=== PATIENT | female | born 1980 | race Caucasian/White ===

== ENCOUNTER 2021-01-22 01:14 | Emergency (ER) | payer BC, SELFPAY ==
--- NOTE | ~2021-01-22 | CT_ITS ---
EXAMINATION: CT abdomen pelvis w con DATE: 01/22/2021 03:39 INDICATION: Generalized abdominal pain. TECHNIQUE: Computed tomography (CT) of the abdomen and pelvis was performed with 100 mL Omnipaque 350 intravenous contrast. Automated exposure control and iterative reconstruction technique were employe d. The dose-length product was 395.67 mGy-cm. COMPARISON: CT abdomen and pelvis 06/17/2013 FINDINGS: The visualized portions of the lung bases demonstrate minimal atelectasis. No pleural effus ion. The heart size is normal. No pericardial effusion. The liver, gallbladder, spleen, pancreas, adr enal glands, and kidneys are normal. There are no dilated loops of bowel. The appendix is normal. The re is bilateral hydrosalpinx. There are no pathologically enlarged lymph nodes. There is physiologic fluid in the pelvis. There is mild thoracolumbar spondylosis. IMPRESSION: 1. Bilateral hydrosalpinx. Reviewed, dictated and finalized at location A. CARE ASSISTANT IMPRESSION: 1. Bilateral hydrosalpinx.
[2021-01-22 01:16] VITALS: BP 166/93; PULSE 98; RESP 18; TEMP 36.8; O2SAT 100
[2021-01-22 01:58] VITALS: BP 152/99; PULSE 85; RESP 16; O2SAT 99
[2021-01-22 02:51] VITALS: BP 132/71; PULSE 98; RESP 16; O2SAT 100
[2021-01-22 03:02] LABS: Basophils Percent Auto 0.4 % (0.2-1.2); Eosinophils Absolute Auto 0.1 K/mm3 (0-0.3); Eosinophils Percent Auto 1.6 % (0-4.4); Hematocrit 39.1 % (37.0-47.0); Immature Granulocyte Absolute 0.01 K/mm3 (0.00-0.031); Immature Granulocyte Percent A 0.2 % (0-0.5); Lymphocytes Absolute Auto 1.61 K/mm3 (0.9-3.2); Lymphocytes Percent Auto 31.6 % (18.3-44.2); Mean Corpuscular HGB Conc 35.8 g/dl (32-36); Mean Corpuscular Volume 86.5 fl (80-100); Mean Platelet Volume 10.7 fl (7.4-10.4); Monocytes Absolute Auto 0.4 K/mm3 (0.1-0.6); Monocytes Percent Auto 7.7 % (2.6-8.5); Neutrophils Percent Auto 58.5 % (45.5-73.1); Platelet Count Result 185 k/mm3 (150-375); Red Blood Count 4.52 M/mm3 (4.2-5.4); Red Cell Distribution Width 12.1 % (11.5-14.5); White Blood Count 5.1 K/mm3 (4.5-10.0)
[2021-01-22 03:05] LABS: Lactic Acid Reflex 0.8 mmol/L (0.7-2.1)
[2021-01-22 03:16] LABS: Alanine Aminotransferase 17 U/L (4-35); Albumin Level 4.5 g/dL (3.5-5.1); Alkaline Phosphatase 53 U/L (38-126); Anion Gap 6 mmol/L (8-16); Aspartate Amino Transferase 23 U/L (14-36); Bilirubin,Total 1.1 mg/dL (0.2-1.3); Blood Urea Nitrogen 17 mg/dL (7-17); Calcium 9.5 mg/dL (8.4-10.2); Carbon Dioxide 25 mmol/L (22-30); Chloride 106 mmol/L (98-107); Estimated CRCL calculation 64 ml/min; Estimated Glomerular Filt Rate > 60; Glucose 110 mg/dL (65-110); Lipase 76 U/L (23-300); Magnesium 2.1 mg/dL (1.6-2.3); Sodium 137 mmol/L (137-145)
[2021-01-22] MEDS: SODIUM CHLORIDE 0.9% IV 1,000 ML 999 ML IV CONT (03:21)
--- NOTE | 2021-01-22 03:36 | ED.GENADULT ---
HPI - General Adult General Chief complaint: Extremity Problem,Nontraumatic Stated complaint: left foot numbness/tingling, left thigh pain Time Seen by Provider: 01/22/21 02:21 History of Present Illness HPI narrative: Patient 40-year-old female presents the emergency department with chief complaint of left lower quadrant and left leg pain. The patient reports that last several days she said, cramping in her pelvis area reports that she started having pain shooting down the dorsum of her left leg. Patient denies focal neurological deficit reports that she also does have an underlying neurological disorder. Patient denies fever denies vomiting denies diarrhea. The patient states the pain is worse with movement reports the pain is more in the dorsum of the leg and worse with movement denies paresthesias denies pallor denies pulselessness. The patient also reports there is been no swelling of the leg and denies direct trauma Related Data Allergies Allergy/AdvReac Type Severity Reaction Status Date / Time Cephalosporins Allergy Mild Unverified 06/17/13 12:25 adhesive Allergy Unknown Unverified 06/17/13 12:25 cefixime Allergy Unknown Unverified 06/17/13 12:25 meperidine Allergy Unknown N/V Unverified 06/27/08 12:25 nitrofurantoin Allergy Unknown RASH Unverified 06/17/13 12:25 Review of Systems Review of Systems: A 10 system review of systems was completed on the patient and is negative except for what is stated in the HPI. Nursing and ancillary documentation was reviewed. Exam Narrative: GENERAL: Well-appearing, well-nourished, and in no acute distress. HEAD: Normocephalic, atraumatic. EYES: PERRLA and EOMI. ENT: Nares clear, no rhinorrhea or epistaxis. Mucous membranes moist. NECK: Supple. CHEST: Clear to auscultation. No respiratory distress. HEART: Regular rate and rhythm. No murmur heard. Normal peripheral pulses. ABDOMEN: Soft, tender to palpation in the left lower quadrant, nondistended, normal active bowel sounds. EXTREMITIES: Normal range of motion. No edema. SKIN: Warm, dry, no rash. NEURO: No focal deficits. Alert and oriented x3. PSYCH: Normal mood and affect. Course Vital Signs Vital signs: Vital Signs Temperature 36.8 C 01/22/21 01:16 Pulse Rate 98 01/22/21 01:16 Respiratory Rate 18 01/22/21 01:16 Blood Pressure 166/93 H 01/22/21 01:16 Pulse Oximetry 100 01/22/21 01:16 Temperature 36.8 C 01/22/21 01:16 Pulse Rate 72 01/22/21 05:44 Respiratory Rate 16 01/22/21 05:44 Blood Pressure 132/83 01/22/21 05:44 Pulse Oximetry 99 01/22/21 05:44 Medical Decision Making Vital Signs Vital Signs: Vital Signs Temperature 36.8 C 01/22/21 01:16 Pulse Rate 98 01/22/21 01:16 Respiratory Rate 18 01/22/21 01:16 Blood Pressure 166/93 H 01/22/21 01:16 Pulse Oximetry 100 01/22/21 01:16 Temperature 36.8 C 01/22/21 01:16 Pulse Rate 72 01/22/21 05:44 Respiratory Rate 16 01/22/21 05:44 Blood Pressure 132/83 01/22/21 05:44 Pulse Oximetry 99 01/22/21 05:44 Lab Data Result diagrams: 01/22/21 02:45 01/22/21 02:45 Labs: Lab Results 01/22/21 01/22/21 01/22/21 Range/Units 02:45 02:45 02:45 WBC 5.1 (4.5-10.0) K/mm3 RBC 4.52 (4.2-5.4) M/mm3 Hgb 14.0 (12.0-15.0) g/dL Hct 39.1 (37.0-47.0) % MCV 86.5 (80-100) fl MCH 31.0 (26-34) pg MCHC 35.8 (32-36) g/dl RDW 12.1 (11.5-14.5) % Plt Count 185 (150-375) k/mm3 MPV 10.7 H (7.4-10.4) fl Immature Gran % (Auto) 0.2 (0-0.5) % Neut % (Auto) 58.5 (45.5-73.1) % Lymph % (Auto) 31.6 (18.3-44.2) % Glascock % (Auto) 7.7 (2.6-8.5) % Eos % (Auto) 1.6 (0-4.4) % Baso % (Auto) 0.4 (0.2-1.2) % Lymph # (Auto) 1.61 (0.9-3.2) K/mm3 Glascock # (Auto) 0.4 (0.1-0.6) K/mm3 Eos # (Auto) 0.1 (0-0.3) K/mm3 Baso # (Auto) 0.0 (0.0-0.1) K/mm3 Abs Immat Gran (auto) 0.01 (0.00-0.031) K/mm3 Absolute Neuts (au
[2021-01-22 03:37] LABS: Add Urine Microscopic? YES; Appearance Urine Clear (Clear); Bacteria Urine Trace /hpf; Bilirubin Urine Negative (Negative); Blood Urine 1+ (Negative); Color Urine Straw (Yellow); Glucose Urine UA Negative (Negative); Ketones Urine Negative (Negative); Leukocyte Esterase Ur Negative LEU/UL (Negative); Nitrate Urine Negative (Negative); Protein Urine Negative (Negative); RBC Urine 0-2 /hpf (0-2); Specific Grav Ur 1.006 (1.001-1.035); Squamous Epithelial Cell Urine Moderate /hpf (Few); Urobilinogen Urine Negative mg/dL (<2.0); WBC Urine 0-3 /hpf
[2021-01-22 05:44] VITALS: BP 132/83; PULSE 72; RESP 16; O2SAT 99
[2021-01-22 07:07] VITALS: BP 105/65; PULSE 75; RESP 16; O2SAT 98
== END 2021-01-22 07:08 | disposition home or self-care (01) ==
PROVIDERS: Emergency Provider Emergency Medicine; PCP Internal Medicine
DX: R10.2 Pelvic and perineal pain (principal); M79.605 Pain in left leg
CPT/HCPCS: 36415; 74177; 80053; 81001; 81025; 83605; 83690; 83735; 85025; 96360; 99284; J7030; Q9967

== ENCOUNTER 2021-01-23 14:53 | Outpatient (CLI) | payer BC, SELFPAY | END 2021-01-23 14:54 | disposition home or self-care (01) | LOC: ANHSURGERY 14:56 | PROVIDERS: PCP Internal Medicine; Visit Provider Student in an Organized Health Care Education/Training Program | DX: Z01.812 Encounter for preprocedural laboratory examination (principal); N70.11 Chronic salpingitis | CPT/HCPCS: 36415; 86850; 86900; 86901 ==

== ENCOUNTER 2021-01-29 01:52 | Day surgery (SDC) | payer BC, SELFPAY ==
[2021-01-23 10:53] VITALS: BMI 22.4
--- NOTE | 2021-01-23 11:08 | PC.NURSE ---
Report to the Outpatient Waiting Room, entrance under the green pavilion located off [facility], at time 10:00 on date 01/29/21. OR Time: 12:00. - You and your visitor will be asked a series of questions to screen for COVID 19 for your protection. - A mask is required within the hospital. - Only one visitor is allowed at this time. Patient visitors will be guided where to wait when not with patient. Preoperative COVID Testing Requirements: No COVID Test needed if: (proof is required; if not received patient will have Rapid Test prior to entry) - Patient has received COVID Vaccine at least 14 days prior to procedure date or - Patient has positive COVID test result within last 90 days of surgery date. COVID Test needed if above criteria is not met If not COVID vaccinated a COVID test must be conducted within 72 hours of surgery and patient is asked to isolate self from time of testing until procedure. You will go to the [employer] for your COVID testing. The [employer] is located at the corner of [address] [facility]. You will only be called if COVID results are positive and your surgeon may reschedule your elective surgery date. Patients may have clear liquids (water, carbonated beverages, clear teas, apple juice) until 3 hours prior to surgery with a maximum of 20 ounces. - No food from midnight until time of surgery - Infants may have breast milk until 4 hours before surgery, infant formula 6 hours prior to surgery. - Children will be allowed to drink immediately following surgery. If applicable, please bring a bottle or sippy cup to assist with drinking. Juice, water, soda, and popsicles are readily available. For infants on formula, please bring formula the day of surgery. Pacifiers are allowed. Take the following medications with a SIP of water the morning of surgery: LAMOTRIGINE Medications to discontinue per physician: N/A Date to take last dose: N/A Please no make-up, nail bulgarian, hairspray, perfume, deodorant, or body powder the day of surgery. No jewelry (including any body piercings) or valuables the day of surgery, leave them at home. Please take a shower or bath the night before, or the morning of, surgery with an antibacterial soap. Wear comfortable, loose fitting clothing. Children are encouraged to wear pajamas. - Jewelry must be removed prior to entering the operating room. Rings and piercings that are not removed may be cut off. - The hospital will not accept responsibility for valuables. - Please leave all valuables, including medications, at home the day of surgery. If you are going home after surgery, a licensed cdl truck driver must drive you home. - NO public transportation without another adult. - We recommend that an adult stay with you for 24 hours following discharge. - We also recommend that you do not drive, make important decision, drink alcoholic beverages, or take any drugs that were not prescribed by your health care provider for at least 24 hours after your discharge time. For Pediatric surgeries, we recommend two adults accompany the child home (only one inside the building at this time). Follow any additional instructions given to you from your surgeon. Telephone instructions given to [employer] and asked if any additional questions and then verbalized understanding. Patient advised to call surgeon office or pre surgery nurse liaison [phone] if any additional questions.
[2021-01-29] VITALS (13 sets, daily range): BP systolic 103–133; BP diastolic 60–75; PULSE 50–87; RESP 12–18; TEMP 36.2–37; O2SAT 95–100
--- NOTE | 2021-01-29 07:22 | PM.IMHP ---
H&P: HPI History of Present Illness Date/Time: 01/29/21 07:22 Chief Complaint: pelvic pain bilateral hydrosalpinx Narrative: 40 yo who presents for robotic assisted TLH/BS for pelvic pain and bilateral hydrosalpinx. Pt presented to the ED for persistent lower abdominal pain and shooting pain down her leg. Pt states she has been dealing with this pain for some time but the intensity has increased. Pt was noted to have bilateral hydrosalpinx on imaging in the ED. She had no leukocytosis or signs of infection. Pt also complains of persistent bothersome vaginal bleeding s/p endometrial ablation. Suspect hematosalpinx and hematometria. Review of Systems Cardiovascular: Cardiovascular: Denies chest pain, Denies leg edema, Denies palpitations, Denies dyspnea and Denies dyspnea on exertion Respiratory: Respiratory: Denies cough, Denies dyspnea and Denies dyspnea on exertion Gastrointestinal: Gastrointestinal: Denies abdominal pain, Denies constipation, Denies diarrhea, Denies nausea and Denies vomiting Genitourinary: Genitourinary: Denies hematuria, Denies urinary frequency, Denies dysuria, Denies pelvic pain, Denies urinary incontinence and Denies vaginal discharge Neurologic: Reports system reviewed and no additional complaints, except as documented Psychiatric: Psychiatric: Reports no additional psychiatric complaints Endocrine: Endocrine: Denies palpitations PMFSH Social History Social History Smoking packs per day: 1 Smoking cigarettes per day: 20.0 Years smoked: 3 Smoking pack-years: 3.00 Smoking status: Former smoker Tobacco type: cigarettes Smoking end date: 03/15/98 Alcohol intake: current Alcohol use details: 2/MONTH Substance use: never Substance use type: does not use Living arrangements: with family Spiritual care concerns: No Meds Home Medications and Allergies Home Medications Medication Instructions Recorded Confirmed Type lamotrigine 150 mg PO HS 01/23/21 01/23/21 History Allergies Allergy/AdvReac Type Severity Reaction Status Date / Time Cephalosporins Allergy Mild Rash Unverified 01/23/21 10:52 adhesive Allergy Unknown Rash Unverified 01/23/21 10:52 cefixime Allergy Unknown Rash Unverified 01/23/21 10:52 meperidine Allergy Unknown N/V Unverified 01/23/21 10:52 nitrofurantoin Allergy Unknown Joint Pain Unverified 01/23/21 10:52 Exam Const: General: no acute distress Eyes: EOM: EOMs intact bilaterally Neck: Neck: supple Thyroid: thyroid normal Chest: Breast/axilla inspection: normal inspection of the breasts Breast/axilla palpation: normal palpation of the breasts, normal palpation of the axillae and no axillary lymphadenopathy Resp: Effort & Inspection: normal respiratory effort Auscultation: clear to auscultation bilaterally Cardio: Rate: regular rate Rhythm: regular rhythm GI: Inspection: non-distended GI Palp: Yes Soft to palpation, No Tenderness to palpation present (GI) and No Guarding due to palpation present (GI) Auscultation: normal bowel sounds : General: No bladder normal to palpation External Female Exam: normal external appearance Speculum Exam - Vagina: normal vaginal discharge and No vaginal bleeding Speculum Exam - Cervix: nontender Bimanual exam- vagina & uterus: No bladder normal to palpation and No Cervical tenderness present OB/external & speculum: No vaginal bleeding Skin: General skin exam: normal color and no rashes or lesions noted Neuro: Cognition (Neuro): normal cognition Speech: normal speech Extrem: General: normal to inspection and no edema Psych: Mental Status: mental status grossly normal Affect: normal affect Assessment and Plan Assessment and plan (1) Pelvic pain: Code(s): R10.2 - Pelvic and perineal pain Status: Acute Assessment and Plan: pt reports persistent pelvic pain pt had endometrial ablation in the past marie
[2021-01-29] MEDS: LACTATED RINGERS 1,000 ML 30 ML IV CONT ×2 (10:50→13:30)
[2021-01-29] MEDS: ACETAMINOPHEN 500 MG TABLET 1000 MG PO (10:53)
[2021-01-29] MEDS: KETOROLAC 15 MG/ML VIAL (*BKC) IV PUSH (10:53)
--- NOTE | 2021-01-29 11:18 | WPDHPUPDATE1 ---
History and Physical Update Update Date/Time: 01/29/21 11:18 History and Physical has been reviewed, including an updated exam of the patient. There are NO changes in the patient's condition. Risks, benefits, and alternatives have been discussed and questions answered. Patient agrees to proceed with procedure.
--- NOTE | 2021-01-29 11:21 | P.PNAN_ITS ---
Anes - Initial Pre Proc Eval Procedure: Operation Date: 01/29/21 12:00 Proposed Procedures p Robotic Assisted Total Vaginal Hysterectomy with Bilateral Salpingectomy - Christo Cummins MD Date/Time: 01/29/21 11:21 Surgeon: Christo Cummins MD Pre Op Diagnosis: bilateral hydrosalpinx, Pelvic pain Patient Data Age: 40 Gender: F Height: 1.65 m Weight: 67.2 kg Last Vital Signs Temp 98.6 F 01/29/21 10:40 Pulse 50 L 01/29/21 10:40 Resp 18 01/29/21 10:40 BP 116/60 01/29/21 10:40 Pulse Ox 100 01/29/21 10:40 Allergies Allergy/AdvReac Type Severity Reaction Status Date / Time adhesive Allergy Unknown Rash Unverified 01/29/21 11:05 cefixime Allergy Unknown HIVES/ITCHI Unverified 01/29/21 11:05 NG meperidine Allergy Unknown N/V Unverified 01/29/21 11:05 nitrofurantoin Allergy Unknown Joint Pain Unverified 01/29/21 11:05 Home Medications Medication Instructions Recorded Confirmed Type lamotrigine 150 mg PO HS 01/23/21 01/29/21 History Patient hx anesthesia problems: none Family hx anesthesia problems: none Results Review: All pre-operative results and documents have been reviewed as part of the pre-operative evaluation. [facility] Past Medical History Medical History (Updated 01/29/21 @ 11:05 by Avni Borges MD) Arrhythmia Social History Social History Smoking packs per day: 1 Smoking cigarettes per day: 20.0 Years smoked: 3 Smoking pack-years: 3.00 Smoking status: Former smoker Tobacco type: cigarettes Smoking end date: 03/15/98 Alcohol intake: current Alcohol use details: 2/MONTH Substance use: never Substance use type: does not use Living arrangements: with family Spiritual care concerns: No Anes - Eval Final PreProcedure Day of Procedure 01/29/21 11:21 Patient weight: normal Heart: regular rate and rhythm Lungs: clear to auscultation Airway: Mallampati scale class II Neurological: alert and oriented Last oral intake: >/= 8 hours ASA classification: II Emergent: no Anesthetic plan: proceed Anesthesia type and monitoring: general ETT and standard monitoring Results Review: All pre-operative results and documents have been reviewed as part of the pre-operative evaluation. Informed Consent: The patient's anesthetic plan and its attendant risks and benefits were discussed with the patient/family/POA. Questions were solicited and answers provided to the satisfaction of the patient/family/POA.
[2021-01-29] MEDS: ceFAZolin 2 GM/D5W 50 ML 2 GM/50 ML BAG IVPB (11:49)
--- NOTE | 2021-01-29 13:11 | W.PM.PROC2 ---
Procedure Note - Detailed Date of Procedure 01/29/21 Pre-op Diagnosis bilateral hydrosalpinx, Pelvic pain Post-op Diagnosis same Procedure Performed robotic assisted total laparoscopic hysterectomy and bilateral salpingectomy Surgeon Christo Cummins MD Anesthesia general Findings bilateral hydrosalpinx, normal appearing uterus and ovaries bilaterally Description of Procedure After the patient was appropriately consented she was taken to the operating room where she was transferred to the table in a dorsal supine position. General anesthesia was then induced with endotracheal intubation. The patient was transferred to a dorsal lithotomy position using adjustable yellow-fin stirrups. Her position was adjusted for appropriate support of her lower back and lower extremities. The patient was prepped and draped. A transurethral conley catheter was place. The cervix was sequentially dilated and a LIZANDRO uterine manipulator placed in typical fashion about a 3.5 cm FRANCIS ring. Gloves were changed. After confirmation of a functioning orogastric tube, lidocaine was injected at Rodriguez's point in the LUQ and a 5mm incision was made. A 5mm Optiview trocar was then inserted into the abdominal cavity under direct visualization and done so without complication. The abdomen was then insufflated with approximately 2-3L of CO2 establishing a pneumoperitoneum and the patient was placed in Trendelenburg position. Just above the umbilicus in the midline, a 10mm incision made after injection of lidocaine and a 12mm bladeless trocar advanced into the abdominal cavity under direct visualization without incident. We subsequently placed two robotic ports in a similar fashion, one in the left mid-quadrant and one in the right, 10cm lateral to the midline port. The robot was then docked. Attention was turned to the left pelvis. The left fallopian tube was removed by sequentially dividing the mesosalpinx towards the uterus sparing the ovary. The utero-ovarian ligament was desiccated and transected, as was the round ligament. The posterior peritoneal leaf was taken down to the FRANCIS ring. The anterior leaf was developed as well as the start of the bladder flap. The left uterine artery was then skeletonized and desiccated and transected just above the level of the FRANCIS ring. Attention was turned to the right pelvis. The right fallopian tube was removed by sequentially dividing the mesosalpinx towards the uterus sparing the ovary. The utero-ovarian ligament was desiccated and transected, as was the round ligament. The posterior peritoneal leaf was taken down to the FRANCIS ring. The anterior leaf was developed as well as the start of the bladder flap. The right uterine artery was then skeletonized and desiccated and transected just above the level of the FRANCIS ring. The bladder was then further dissected inferiorly over the level of the FRANCIS ring. A circumferential colpotomy was made using monopolar current. The uterus, cervix, bilateral tubes were then delivered transvaginally. I then placed a single figure of eight suture of 0-vicryl in the left corner of the vaginal cuff. I then re-approximated the colpotomy with a running #1 PDO Quill suture in 2 layers. Part of the posterior peritoneum of the vaginal cuff was noted to be bleeding so hemostasis was obtained with hemaderm powder. Following this dissection, the abdomen and pelvis were copiously irrigated and all surgical sites found to be hemostatic. Skin sites were reapproximated with 4-0 Vicryl in a subcuticular fashion. Steri-Strips were placed. The patient tolerated the procedure well. Sponge, needle and instrument counts were correct x 2 and the patient was taken to recovery in stable condition. Ancef wase given for antimicrobial prophylaxis. The patient had SCD's on for VTE prophylaxis during the entire procedure. Estimated Blood Loss 50 Urine Output 150 Drains No Packing No Pathology yes (cervix, uterus, bilateral fallopian tubes) Co
[2021-01-29] MEDS: LIDO 1%/EPINEPHRINE 1:100,000 50 ML VIAL 20 ML INFILTRATE (13:15)
[2021-01-29] MEDS: HYDROmorphone HCL INJ (*CRX) 1 MG/ML SYR 0.25 MG IV PUSH ×8 (13:43→15:20)
--- NOTE | 2021-01-29 15:06 | SUR.PHASEI ---
PT GRIMACING, C/O PAIN 09/21. STATES I'M NOT SURE I CAN GO HOME . PT AGREED TO STAYING OVERNIGHT. CALLING DR PATHAK
--- NOTE | 2021-01-29 15:09 | SUR.PHASEI ---
SPOKE WITH DR PATHAK. PT TO BE ADMITTED OVER NIGHT FOR PAIN CONTROL. SPOUSE NOTIFIED.
--- NOTE | 2021-01-29 15:53 | ADMGEN ---
This patient, Phoebe Obregon, was admitted to OB 2nd Floor Room 290-00. Patient/family oriented to hospital policies and general routines including ID bracelet, bed and alarms, visiting hours, pain management, procedures, bathroom and other care routines, personal items, smoking policy, room service/diet, and visiting hours. Information on how to activate the Rapid Response Team has been discussed. Patient/Family are encouraged to report perceived risks to care and to ask questions if they do not understand what they are told or what they should do.
--- NOTE | 2021-01-29 16:02 | SUR.PHASEI ---
LATE NOTE; 1405; PT SMILE ASSYMETRICAL. LT SIDE NOT MOVING. PT STATES I HAVE DYSTONIA, ITS LIKE THAT . MOVES ALL OTHER EXTREMITIES.
[2021-01-29] MEDS: KETOROLAC 30 MG/ML VIAL (*BKC) IV PUSH (17:29)
[2021-01-29] MEDS: SENNA/DOCUSATE SODIUM TABLET 2 TAB PO (21:12)
[2021-01-29] MEDS: HYDROcodone/acetaminophen (*CRX) 10-325 MG TABLET 1 TAB PO (21:12)
[2021-01-30 03:20] VITALS: BP 100/60; PULSE 55; RESP 16; TEMP 36.8; O2SAT 99
[2021-01-30] MEDS: IBUPROFEN 600 MG TABLET PO (03:33)
[2021-01-30] MEDS: HYDROcodone/acetaminophen (*CRX) 10-325 MG TABLET 1 TAB PO ×2 (03:33→08:32)
[2021-01-30 05:16] LABS: Basophils Percent Auto 0.1 % (0.2-1.2); Hematocrit 35.6 % (37.0-47.0); Hemoglobin 12.6 g/dL (12.0-15.0); Immature Granulocyte Absolute 0.02 K/mm3 (0.00-0.031); Immature Granulocyte Percent A 0.2 % (0-0.5); Lymphocytes Absolute Auto 1.31 K/mm3 (0.9-3.2); Mean Corpuscular HGB Conc 35.4 g/dl (32-36); Mean Corpuscular Hemoglobin 30.6 pg (26-34); Mean Corpuscular Volume 86.4 fl (80-100); Mean Platelet Volume 11.6 fl (7.4-10.4); Monocytes Absolute Auto 0.7 K/mm3 (0.1-0.6); Monocytes Percent Auto 7.1 % (2.6-8.5); Neutrophils Absolute Auto 7.4 K/mm3 (1.3-6.7); Neutrophils Percent Auto 78.6 % (45.5-73.1); Platelet Count Result 171 k/mm3 (150-375); Red Blood Count 4.12 M/mm3 (4.2-5.4); Red Cell Distribution Width 12.1 % (11.5-14.5); White Blood Count 9.4 K/mm3 (4.5-10.0)
[2021-01-30 05:27] LABS: Anion Gap 5 mmol/L (8-16); Blood Urea Nitrogen 11 mg/dL (7-17); Carbon Dioxide 26 mmol/L (22-30); Chloride 103 mmol/L (98-107); Estimated CRCL calculation 72 ml/min; Estimated Glomerular Filt Rate > 60; Glucose 141 mg/dL (65-110); Sodium 134 mmol/L (137-145)
--- NOTE | 2021-01-30 07:09 | PM.DS ---
DS: Admitting Diagnosis Discharge Date 01/30/21 Admitting Diagnosis pelvic pain bilateral hydrosalpinx DS: Summary Hospital Course Hospital Course: Phoebe Obregon was admitted after robotic assisted total laparoscopic hysterectomy and bilateral salpingectomy for pelvic pain and bilateral hydrosalpinx. The above procedure was performed with no complications. She is doing well post op. She states her pain is well controlled with PO medications. She reports minimal bleeding. She is ambulating up to the chair. Her conley catheter was removed. She is tolerating PO without N/V. She reports passing flatus. Status at Discharge Overall status at discharge: patient is progressing back to baseline Time Spent with Patient Time attestation: Total time spent providing and/or coordinating discharge services: Time spent: Less than 30 minutes Exam Const: General: comfortable and no acute distress Limitations: no limitations Resp: Effort & Inspection: normal respiratory effort Auscultation: clear to auscultation bilaterally Cardio: Rate: regular rate Rhythm: regular rhythm GI: Inspection: non-distended GI Palp: Yes Soft to palpation, Yes Tenderness to palpation present (GI) (milder tenderness to deep palpation) and No Guarding due to palpation present (GI) Auscultation: normal bowel sounds Other: incisions C/D/I covered with dermabond Urinary Catheter: Urinary Catheter: urine clear Skin: General skin exam: normal color Extrem: General: normal to inspection Psych: Mental Status: mental status grossly normal Affect: normal affect DS: Data Data Completed and Pending Pending studies at discharge: Pending at discharge 01/29/21 12:44 Surgical [PTH] Routine Labs on day of discharge: Labs from last 24 hours 01/30/21 01/30/21 03:17 03:17 WBC 9.4 RBC 4.12 L Hgb 12.6 Hct 35.6 L MCV 86.4 MCH 30.6 MCHC 35.4 RDW 12.1 Plt Count 171 MPV 11.6 H Immature Gran % (Auto) 0.2 Neut % (Auto) 78.6 H Lymph % (Auto) 14.0 L Dauphin % (Auto) 7.1 Eos % (Auto) 0.0 Baso % (Auto) 0.1 L Lymph # (Auto) 1.31 Da[place]hin # (Auto) 0.7 H Eos # (Auto) 0.0 Baso # (Auto) 0.0 Abs Immat Gran (auto) 0.02 Absolute Neuts (auto) 7.4 H Absolute Nucleated RBC 0.0 Nucleated RBC % 0.0 Sodium 134 L Potassium 4.0 Chloride 103 Carbon Dioxide 26 Anion Gap 5 L BUN 11 D Creatinine 0.80 Estim Creat Clear Calc 72 Estimated GFR > 60 Glucose 141 H Calcium 9.0 Discharge Plan Discharge Patient Disposition: Home, Self-Care Patient Instructions: Laparoscopic Hysterectomy (DC) Stand Alone Forms: General Discharge Instructions Follow-up/Referrals: Christo Cummins MD [Physician] - 2 Weeks Discharge Medications: New oxycodone-acetaminophen 5-325 mg tablet 1 tablet PO Q6H PRN (Reason: pain) Qty: 28 RF: 0 ibuprofen 600 mg tablet 600 mg PO Q6H PRN (Reason: pain) Qty: 30 RF: 0 sennosides-docusate sodium [Lax Stool Softener With Senna] 8.6-50 mg tablet 1 tab-cap PO HS Qty: 30 RF: 0 acetaminophen 500 mg tablet 500 mg PO Q6H PRN (Reason: pain) Qty: 30 RF: 0 metronidazole 500 mg tablet 500 mg PO Q12H Qty: 14 RF: 0 Continued lamotrigine 100 mg tablet 150 mg PO HS RF: 0
[2021-01-30 08:45] VITALS: BP 95/57; PULSE 52; RESP 18; TEMP 36.8; O2SAT 98
== END 2021-01-30 10:05 | disposition home or self-care (01) ==
LOC: ANHSURGERY 13:17 → ANHOB2 15:57
PROVIDERS: PCP Internal Medicine; Visit Provider Student in an Organized Health Care Education/Training Program
PROC: (CPT 58571; principal; 2021-01-29 12:00)
DX: N70.11 Chronic salpingitis (principal); R10.2 Pelvic and perineal pain; N73.6 Female pelvic peritoneal adhesions (postinfective); N80.2 Endometriosis of fallopian tube; Z87.891 Personal history of nicotine dependence
CPT/HCPCS: 58571; S2900; 36415; 80048; 85025; 88307; 99199; A9270; J0690; J1100; J1170; J1885; J2250; J2405; J2704; J2710; J3010; J7030; J7120

== ENCOUNTER 2021-08-09 10:47 | Emergency (ER) | payer BC, SELFPAY ==
[2021-08-09 11:02] VITALS: BP 117/82; PULSE 81; RESP 18; TEMP 36.6; O2SAT 99
--- NOTE | 2021-08-09 15:44 | ED.GENADULT ---
HPI - General Adult General Chief complaint: Upper Respiratory Infection Stated complaint: pressure in both ears,cough,nasal congestion History of Present Illness HPI narrative: Patient is a 41 y/o female who presents to [facility] via [facility] for an evaluation for sinus pain that began 4 days ago. Additionally, she reports nasal congestion, bilateral ear pain, sinus pressure, intermittent, frontal headaches, and fatigue. No relief with dayquil/nyquil. Nothing worsens sx. Hx of allergic rhinitis. Denies known exposure to sick contacts. Related Data Home Medications Medication Instructions Recorded Confirmed lamotrigine 100 mg tablet 100 mg PO DIRECTED 01/23/21 01/29/21 Allergies Allergy/AdvReac Type Severity Reaction Status Date / Time adhesive Allergy Unknown Rash Verified 08/09/21 11:34 cefixime Allergy Unknown HIVES/ITCHI Verified 08/09/21 11:34 NG nitrofurantoin Allergy Unknown Joint Pain Verified 08/09/21 11:34 meperidine AdvReac Unknown N/V Verified 08/09/21 11:34 Review of Systems Review of Systems: Denies fever, chills, sweats, appetite changes, dizziness, severe persistent headaches, LOC, ear drainage, hearing problems, abd pain, n/v/d, cough, sob, chest pain, and heart palpitations. PMFSH Past Medical History Medical History Arrhythmia Social History Social History Smoking packs per day: 1 Smoking cigarettes per day: 20.0 Years smoked: 3 Smoking pack-years: 3.00 Smoking status: Former smoker Alcohol intake: current Alcohol use details: 2/MONTH Substance use: never Substance use type: does not use Spiritual care concerns: No Comments I have reviewed and agree with the patient's past medical, surgical, social, and family hx as documented by the RN. There is no relevant family history pertinent to the presenting complaint. Exam Narrative: GENERAL: Well-appearing, well-nourished, and in no acute distress. HEAD: Normocephalic, atraumatic. No sinus tenderness or facial swelling appreciated. EYES: PERRLA and EOMI. No evidence of erythema, swelling, or drainage. ENT: MOderate erythema and mild bulging noted to right TM. L TM normal. External ears and ear canals normal. Bilateral TMs are normal.No TM perforation. Nares clear, no rhinorrhea or epistaxis. Bilateral turbinates are moderately erythematous and swollen. Mucous membranes moist and pink. Uvula is midline without erythema and swelling. No evidence of petechial rash, cobblestoning, lesions, ulcers, erythema, swelling, exudates, peritonsillar abscess, tenting, or drooling. Breath odor and voice normal. NECK: Supple. No Lymphadenopathy or nuchal rigidity appreciated. CHEST: Bilateral lung newman are clear to auscultation. No respiratory distress. No evidence of cough or pleuritic cp upon examination. HEART: Regular rate and rhythm. No murmur, gallop, or rub heard. EXTREMITIES: Normal range of motion. No edema. SKIN: Warm, dry, no rash. NEURO: No focal deficits. Alert and oriented x3. Course Course Level of Care: Express Care Visit Vital Signs Vital signs: Vital Signs Temperature 98 F 08/09/21 11:02 Pulse Rate 81 08/09/21 11:02 Respiratory Rate 18 08/09/21 11:02 Blood Pressure 117/82 08/09/21 11:02 Pulse Oximetry 99 08/09/21 11:02 Oxygen Delivery Room Air 08/09/21 11:02 Temperature 98 F 08/09/21 11:02 Pulse Rate 81 08/09/21 11:02 Respiratory Rate 18 08/09/21 11:02 Blood Pressure 117/82 08/09/21 11:02 Pulse Oximetry 99 08/09/21 11:02 Oxygen Delivery Room Air 08/09/21 11:02 Medical Decision Making Differential Diagnosis Differential Diagnosis: Allergic rhinitis, ABRS, acute viral sinusitis, strep pharyngitis, nasopharyngitis, bronchitis, pneumonia, AOM, otitis externa, viral URI, influenza, covid-19 Vital Signs Vital Signs: Vital Signs Temper
== END 2021-08-09 11:54 | disposition home or self-care (01) ==
PROVIDERS: Emergency Provider Nurse Practitioner Family; PCP Internal Medicine
DX: J32.9 Chronic sinusitis, unspecified (principal); H66.91 Otitis media, unspecified, right ear; Z87.891 Personal history of nicotine dependence
CPT/HCPCS: 99213; G0463

== ENCOUNTER 2022-04-01 11:39 | Emergency (ER) | payer BC, SELFPAY ==
[2022-04-01 11:58] VITALS: BP 157/94; PULSE 81; RESP 18; TEMP 36.7; O2SAT 100
--- NOTE | 2022-04-01 12:27 | ECG_ITS ---
Measurements Intervals [place] Rate: 79 P: 68 IN: 131 QRS: 74 QRSD: 104 T: 57 QT: 367 QTc: 422 Interpretive Statements SINUS RHYTHM WITH MARKED SINUS ARRHYTHMIA POSSIBLE LEFT ATRIAL ENLARGEMENT MINIMAL Q WAVES- INF/LAT LEADS BORDERLINE ECG NO PREVIOUS ECG AVAILABLE FOR COMPARISON Electronically Signed On 04-01-2022 13:11:07 GARMENT LOOPER by Joel Bertrand D.O.
--- NOTE | 2022-04-01 12:28 | ED.GENADULT ---
HPI - General Adult General Chief complaint: Headache Stated complaint: headache, poss elevated blood pressure Time Seen by Provider: 04/01/22 12:33 Source: patient, RN notes reviewed and old records reviewed Mode of arrival: ambulatory Limitations: no limitations History of Present Illness HPI narrative: 41 year old female presents to [facility] care with 5-6 day history of continuos headache pain to the sides of her head with elevation of blood pressure, patient reports that she called off work today due to her continued symptoms. patient states that she called her doctors office and he is out on vacation and couldn't be seen. She states that during her visit this summer some of her blood work was off and she has appt in April for follow up, she thinks it is cholesterol and HDL levels. Patient reports that she hasn't been able to sleep well since the headaches started. She has cuff at home and has been checking her blood pressure with diastolic running 90-100's and top number ranging 130-150. Patient is flushed facial and chest region, denies any chest pain, shortness of breath or any nausea. Patient reports no sinus symptoms, ear pain, cough or feelings of congestion. MD complaint: persistent headaches, elevation of blood pressure, flushing of skin. Onset (ago): day(s) (5-6 days) Location: head (bilateral temporal) Severity scale (1-10): 6 Pain Consistency: constant Treatments prior to arrival: other (excedrin) Related Data Home Medications Medication Instructions Recorded Confirmed lamotrigine 100 mg tablet 100 mg PO DAILY 01/23/21 04/01/22 Allergies Allergy/AdvReac Type Severity Reaction Status Date / Time meperidine AdvReac Intermediate N/V Verified 04/01/22 13:11 nitrofurantoin AdvReac Intermediate Joint Pain Verified 04/01/22 13:11 adhesive AdvReac Mild Rash Verified 04/01/22 13:11 cefixime AdvReac Mild HIVES/ITCHI Verified 04/01/22 13:11 NG Review of Systems Review of Systems: CONSTITUTIONAL: Denies fever, chills, or sweats. EYES: Denies visual changes, redness, or discharge. ENT: Denies rhinorrhea, congestion, sore throat, or otalgia. CARDIOVASCULAR: Denies chest pain, palpitations, or edema. RESPIRATORY: Denies cough or dyspnea. GASTROINTESTINAL: Denies abdominal pain, nausea, vomiting, or diarrhea. GENITOURINARY: Denies dysuria or hematuria. SKIN: Denies rash or itching. facial and chest flushing MUSCULOSKELETAL: Denies back pain, joint pain, or myalgia. NEUROLOGIC: Reports headache,no numbness, or weakness. PSYCHIATRIC: Denies anxiety or depression. All systems reviewed & are unremarkable except as noted in HPI and below PMFSH Past Medical History Medical History Arrhythmia Levi's palsy Kidney stones Surgical History Surgical History H/O arthroscopic knee surgery ACL repair History of endometrial ablation History of tubal ligation Family History Family History Grandparent Breast cancer Cerebrovascular accident Father Heart disease Father Hypertension Mother Hypertension Cerebrovascular accident Social History Social History Smoking packs per day: 1 Smoking cigarettes per day: 20.0 Years smoked: 3 Smoking pack-years: 3.00 Smoking status: Former smoker Alcohol intake: current Alcohol use details: 2/MONTH Substance use: never Substance use type: does not use Spiritual care concerns: No Comments At time of signature, agree with nursing past medical, surgical, social and family history. There is no relevant family history pertinent to the presenting complaint Course Course Level of Care: Express Care Visit Vital Signs Vital signs: Vital Signs Temperature 36.7 C 04/01/22 11:58 Pulse Rate 81 04/01/22 11:58 Respiratory Rate 18 04/01/22 11:58
== END 2022-04-01 12:55 | disposition short-term general hospital (02) ==
PROVIDERS: Emergency Provider Registered Nurse; PCP Internal Medicine
DX: R51.9 Headache, unspecified (principal); R03.0 Elevated blood-pressure reading, without diagnosis of hypertension; Z20.822 Contact with and (suspected) exposure to COVID-19; Z87.891 Personal history of nicotine dependence
CPT/HCPCS: 87426; 93005; 99213; C9803; G0463

== ENCOUNTER 2022-04-01 13:07 | Emergency (ER) | payer BC, SELFPAY ==
--- NOTE | ~2022-04-01 | CT_ITS ---
Non-contrast Head CT History: Headache COMPARISON: 04/22/2010 Technique: Axial non-contrast imaging of the brain was performed. Dose reduction technique was used on this scan by utilizing automated exposure control and iterative reconstruction technique. The dose -length product (DLP) was 605.33 mGy-cm. Findings: There is no evidence of intracranial hemorrhage, mass lesion, or acute infarct. Brain par enchyma appears normal. The ventricles and subarachnoid spaces are normal in size. The calvarium ap pears normal. The visualized paranasal sinuses and mastoid air cells are clear. Impression: No significant abnormality seen. Reviewed, dictated and finalized at [facility]. [facility]IST Impression: No significant abnormality seen.
[2022-04-01 13:09] VITALS: BP 153/90; PULSE 89; RESP 14; TEMP 36.2; O2SAT 98
--- NOTE | 2022-04-01 13:48 | ECG_ITS ---
Measurements Intervals [place] Rate: 53 P: 56 [place]: 119 QRS: 74 QRSD: 105 T: 62 QT: 447 QTc: 421 Interpretive Statements SINUS BRADYCARDIA WITH SHORT W[place] INTERVAL BORDERLINE ECG COMPARED TO ECG 04/01/2022 12:18:40 SINUS BRADYCARDIA NOW PRESENT Electronically Signed On 04-01-2022 15:20:51 [employer]PERATOR by Joel Bertrand D.O.
--- NOTE | 2022-04-01 13:53 | ED.GENADULT ---
HPI - General Adult General Chief complaint: Recheck/Abnormal Lab/Rx Stated complaint: sent from -[facility] Time Seen by Provider: 04/01/22 13:42 Source: patient Limitations: no limitations History of Present Illness HPI narrative: Phoebe Obregon is a 41 y/o female who was sent here from urgent care. She reports she has had a bilateral temporal non radiating headache for 5 days. She denies history of headaches/ migraines so she began to monitor her b/p at home and was concerned because she was getting readings that were elevated such as 130's-150's systolic over 90's diastolic. She denies nausea/vomiting/ fever/chills/ abdominal pain/ chest pain/ shortness of breath. Related Data Home Medications Medication Instructions Recorded Confirmed lamotrigine 100 mg tablet 100 mg PO DAILY 01/23/21 04/01/22 Allergies Allergy/AdvReac Type Severity Reaction Status Date / Time meperidine AdvReac Intermediate N/V Verified 04/01/22 13:11 nitrofurantoin AdvReac Intermediate Joint Pain Verified 04/01/22 13:11 adhesive AdvReac Mild Rash Verified 04/01/22 13:11 cefixime AdvReac Mild HIVES/ITCHI Verified 04/01/22 13:11 NG Review of Systems Review of Systems: CONSTITUTIONAL: Denies fever, chills, or sweats. EYES: Denies visual changes, redness, or discharge. ENT: Denies rhinorrhea, congestion, sore throat, or otalgia. CARDIOVASCULAR: Denies chest pain, palpitations, or edema. RESPIRATORY: Denies cough or dyspnea. GASTROINTESTINAL: Denies abdominal pain, nausea, vomiting, or diarrhea. GENITOURINARY: Denies dysuria or hematuria. SKIN: Denies rash or itching. MUSCULOSKELETAL: Denies back pain, joint pain, or myalgia. NEUROLOGIC: reports headache for 5 days. Denies numbness, dizziness, or weakness. PSYCHIATRIC: Denies anxiety or depression. [facility] Past Medical History Medical History Arrhythmia Levi's palsy Kidney stones Surgical History Surgical History H/O arthroscopic knee surgery ACL repair History of endometrial ablation History of tubal ligation Family History Family History Grandparent Breast cancer Cerebrovascular accident Father Heart disease Father Hypertension Mother Hypertension Cerebrovascular accident Social History Social History Smoking packs per day: 1 Smoking cigarettes per day: 20.0 Years smoked: 3 Smoking pack-years: 3.00 Smoking status: Former smoker Alcohol intake: current Alcohol use details: 2/MONTH Substance use: never Substance use type: does not use Spiritual care concerns: No Exam Narrative: GENERAL: Well-appearing, well-nourished, and in no acute distress. HEAD: Normocephalic, atraumatic. EYES: PERRLA and EOMI. ENT: Nares clear, no rhinorrhea or epistaxis. Mucous membranes moist. Oropharynx without tonsillar hypertrophy exudate or other lesions.. NECK: Supple. No adenopathy or masses. No carotid bruits or JVD CHEST: Clear to auscultation. No respiratory distress. No wheezes rales or rhonchi HEART: Regular rate and rhythm. No murmur heard. Normal peripheral pulses. ABDOMEN: Soft, nontender, nondistended, normal active bowel sounds. EXTREMITIES: Normal range of motion. No edema. SKIN: Warm, dry, no rash. NEURO: No focal deficits. Alert and oriented x3. PSYCH: Normal mood and affect. Course Vital Signs Vital signs: Vital Signs Temperature 36.2 C L 04/01/22 13:09 Pulse Rate 89 04/01/22 13:09 Respiratory Rate 14 04/01/22 13:09 Blood Pressure 153/90 H 04/01/22 13:09 Pulse Oximetry 98 04/01/22 13:09 Oxygen Delivery Room Air 04/01/22 13:09 Temperature 36.2 C L 04/01/22 13:09 Pulse Rate 89 04/01/22 13:09 Respiratory Rate 14 04/01/22 13:09 Blood Pressure 153/90 H 04/01/22 13:09 Pulse Oximetry 98 04/01/22 13:09 Oxy
[2022-04-01] MEDS: SODIUM CHLORIDE 0.9% IV 1,000 ML 999 ML IV CONT (14:22)
[2022-04-01] MEDS: diphenhydrAMINE HCl INJ 50 MG/ML VIAL 25 MG IV PUSH (14:23)
[2022-04-01] MEDS: KETOROLAC 30 MG/ML VIAL (*BKC) IV PUSH (14:23)
[2022-04-01] MEDS: PROCHLORPERAZINE EDISYLATE 10 MG/2 ML VIAL IV PUSH (14:23)
[2022-04-01 14:32] LABS: Hematocrit 44.2 % (37.0-47.0); Mean Corpuscular HGB Conc 33.9 g/dl (32-36); Mean Corpuscular Hemoglobin 29.8 pg (26-34); Mean Corpuscular Volume 87.7 fl (80-100); Platelet Count Result 198 k/mm3 (150-375); Red Blood Count 5.04 M/mm3 (4.2-5.4); White Blood Count 5.5 K/mm3 (4.5-10.0)
[2022-04-01 14:33] LABS: Basophils Percent Auto 0.5 % (0.2-1.2); Eosinophils Absolute Auto 0.1 K/mm3 (0-0.3); Eosinophils Percent Auto 1.3 % (0-4.4); Immature Granulocyte Absolute 0.01 K/mm3 (0.00-0.031); Immature Granulocyte Percent A 0.2 % (0-0.5); Lymphocytes Absolute Auto 1.74 K/mm3 (0.9-3.2); Lymphocytes Percent Auto 31.9 % (18.3-44.2); Monocytes Absolute Auto 0.4 K/mm3 (0.1-0.6); Monocytes Percent Auto 8.1 % (2.6-8.5); Neutrophils Absolute Auto 3.2 K/mm3 (1.3-6.7)
[2022-04-01 14:34] LABS: Alanine Aminotransferase 19 U/L (6-35); Alkaline Phosphatase 56 U/L (38-126); Anion Gap 10 mmol/L (8-16); Aspartate Amino Transferase 26 U/L (14-36); Bilirubin,Total 1.5 mg/dL (0.2-1.3); Blood Urea Nitrogen 13 mg/dL (7-17); Carbon Dioxide 25 mmol/L (22-30); Chloride 105 mmol/L (98-107); Estimated CRCL calculation 71 ml/min; Estimated Glomerular Filt Rate > 60; Glucose 94 mg/dL (65-110); Potassium 3.8 mmol/L (3.4-5.0); Sodium 140 mmol/L (137-145)
[2022-04-01 14:45] LABS: Troponin I < 0.012 ng/mL (0.000-0.034)
[2022-04-01 15:43] VITALS: BP 139/86; PULSE 84; RESP 16; O2SAT 97
== END 2022-04-01 15:44 | disposition home or self-care (01) ==
PROVIDERS: Emergency Provider Nurse Practitioner Family; PCP Internal Medicine
DX: R03.0 Elevated blood-pressure reading, without diagnosis of hypertension (principal); R51.9 Headache, unspecified; Z87.891 Personal history of nicotine dependence
CPT/HCPCS: 36415; 70450; 80053; 84484; 85025; 93005; 96361; 96374; 96375; 99284; J0780; J1200; J1885; J7030

== ENCOUNTER 2023-12-29 15:18 | Outpatient (CLI) | payer OTHER, SELFPAY ==
--- NOTE | ~2023-12-29 | MR_ITS ---
EXAMINATION: MR knee LT wo con DATE: 12/29/2023 16:24 INDICATION: Left knee pain TECHNIQUE: Magnetic resonance imaging (MRI) of the left knee was performed without intravenous contra st. Sequences included coronal PD-weighted FSE, coronal PD-weighted FS FSE, sagittal T2-weighted FSE , sagittal PD-weighted FS FSE and axial PD weighted fat saturated FSE. COMPARISON: None. FINDINGS: Medial compartment: Mild medial extrusion of the medial meniscal body. Radial tear at the lateral side of the posterior h orn of the medial meniscus. There appears be an additional longitudinal tear plane extending medially into the posterior horn from the radial tear plane with increased signal contacting the inferior art icular surface and the peripheral third of the meniscus. Mild partial-thickness cartilage loss with m ild scattered chondral surface irregularity along the anterior to central weightbearing medial femora l condyle and along the posterior medial margin of the medial tibial plateau. There is mild subarticu lar edema-like signal change along the posterior margin of the medial tibial plateau which could be d ue to overlying chondromalacia or altered stress distribution resulting from the meniscal tear. Lateral compartment: Lateral extrusion of the lateral meniscal body. Complex tear at the posterior horn of the lateral men iscus which extends into the posterior body. Partial-thickness cartilage loss and chondral fissuring with minimal underlying subarticular edema-like signal change at the anterior weightbearing lateral f emoral condyle. Additional small focus of partial-thickness chondral fissuring without degenerative s ubchondral changes at the posterior medial aspect of the lateral tibial plateau. Patellofemoral compartment: Sagittally oriented full/near full-thickness chondral fissure at the patellar apical ridge with tiny focus of underlying subarticular edema-like signal change inferiorly. Remaining patellar cartilage ap pears relatively preserved. Partial-thickness chondral ulceration with deep fissuring at the trochlea r groove and immediately adjacent medial side of the lateral trochlea. Ligaments and tendons: Intact anterior cruciate ligament reconstruction utilizing patellar tendon autograft with sagittally oriented defect in the patellar tendon. The posterior cruciate ligament is normal. The medial collate ral ligament and fibular collateral ligament complex are normal. Quadriceps tendon is normal. The vis ualized medial and lateral hamstring tendons as well as the iliotibial band are normal. Fluid: Physiologic amount of fluid in the joint space. No loose osteochondral bodies identified. Osseous/other: Bone alignment is normal. No fracture or pathologic marrow replacing process. IMPRESSION: 1. Intact anterior cruciate ligament reconstruction utilizing patellar tendon autograft. 2. Complex tears at the posterior horns of the medial and lateral menisci. 3. 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 Reviewed, dictated and finalized at location A. IMPRESSION: 1. Intact anterior cruciate ligament reconstruction utilizing patellar tendon a utograft. 2. Complex tears at the posterior horns of the medial and lateral menisci. 3. 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
== END 2023-12-29 15:19 | disposition home or self-care (01) ==
PROVIDERS: PCP Internal Medicine; Visit Provider Physician Assistant Surgical
DX: M17.12 Unilateral primary osteoarthritis, left knee (principal); S83.272A Complex tear of lateral meniscus, current injury, left knee, initial encounter; S83.232A Complex tear of medial meniscus, current injury, left knee, initial encounter; X58.XXXA Exposure to other specified factors, initial encounter
CPT/HCPCS: 73721

== ENCOUNTER 2025-02-11 11:41 | Emergency (ER) | payer BC, SELFPAY ==
--- NOTE | ~2025-02-11 | CT_ITS ---
CTA CHEST CLINICAL HISTORY: SOA . COMPARISON: CT abdomen pelvis 01/22/2021 TECHNIQUE: Helical CTA performed from thoracic inlet to upper abdomen IV contrast information not listed in PACS Coronal, sagittal reformats. Multiplanar MIPS CT images acquired with automatic exposure control for dose reduction DLP: 229 mGy-cm FINDINGS: Pulmonary arteries: No PE. Thoracic Aorta: No dissection or aneurysm. Heart/pericardium: Unremarkable. RV/LV ratio: Normal. Lungs/Pleura: Clear. Tracheobronchial tree: Patent. Nodes: No enlarged nodes. Bones: No acute bony abnormality. Soft tissues: Unremarkable. Visualized upper abdomen: Chronic right renal pelviectasis. IMPRESSION: 1. No PE or other acute cardiopulmonary findings. Reviewed, dictated and finalized at location R. FACTURING ENGINEER
--- OUTSIDE RECORDS SUMMARY | 2025-02-11 11:43 | XMS_ITS | Encounter Summary ---
Author Organization [facility] Address [address] [place] [id number] Care Team Providers Care Wind Energy Technician Name Role Phone Onofre Rubio MD Primary Care Provider Kirby Sandhu MD Unavailable [phone] Fawad Swift MD Unavailable [phone] Encounter Details Date Type Department Care Team (Late st Contact Info) Description 02/07/2025 Orders Only [facility] [address] [place] [address] Gemma Khan MD [address] [address] Social History Tobacco Use Types Packs/Day Years Used Date Smoking Tobacco: Never Passive Smoke Exposure: Never Smokeless Tobacco: Never Comments:tried cigarettes du [employer] Alcohol Use Standard Drinks/Week Comments Yes 1 (1 standard drink = 0.6 oz pure alcohol) occasional, 3 drinks a month on average PHQ-2 Answer Date Recorded Patient Health Questionnaire-2 Score 0 08/13/2023 Comments No Sex and Gender Information Value Date Recorded Sex Assigned at Not on file Legal Sex Female 7:54 PM CDT Gender Identity Not on file Sexual Orientation Not on file documented as of this encounter Plan of Treatment Pending Results Name Type Priority Associated Diagnoses Date /Time CELIAC DISEASE COMP PANEL Lab Routine Fibromyalgia 02/07/2025 10:[address] [facility] [place] LAW CLERK ANGIOTENSIN I ENZYME SERUM Lab Routine Fibromyalgia 02/07/2025 10:[address] [facility] [place] LAW CLERK BETA 2 GLYCOPROTEIN I ANTIBODY,EA Lab Routine Fibromyalgia 02/07/2025 10:[address] [facility] LAW CLERK ENA2 (SSA & SSB) Lab Routine Fibromyalgia 02/07/2025 10:[address] [facility] LAW CLERK INFLAMATORY BOWEL DISEASE (QST) Lab Routine Fibromyalgia 02/07/2025 10:[address] [facility] LAW CLERK Scheduled Orders Name Type Priority Associated Diagnoses Orde r Schedule CALPROTECTIN FECAL Microbiology Routine Fibromyalgia 1 Occurrences starting 02/07/2025 until 02/07/2026 CELIAC DISEASE COMP PANEL Lab Routine Fibromyalgia Expected: 02/07/2025, Expires: 02/07/2026 ANGIOTENSIN I ENZYME SERUM Lab Routine Fibromyalgia 1 Occurrences starting 02/07/2025 until 02/07/2026 BETA 2 GLYCOPROTEIN I ANTIBODY,EA Lab Routine Fibromyalgia 1 Occurrences starting 02/07/2025 until 02/07/2026 ENA2 (SSA & SSB) Lab Routine Fibromyalgia 1 Occurrences starting 02/07/2025 until 02/07/2026 INFLAMATORY BOWEL DISEASE (QST) Lab Routine Fibromyalgia 1 Occurrences starting 02/07/2025 until 02/07/2026 documented as of this encounter Results * HEPATITIS A,B,& C (02/07/2025 10:[address] [facility] [place] LAW CLERK) HEPATITIS B SURFACE AG NON-REACTIVE NON-REACT RICKI 02/07/2025 2:[address] [place] LAW CLERK [facility] HEP B CORE TOTAL AB NON-REACTIVE NON-REACT RICKI 02/07/2025 2:[address] [place] LAW CLERK [facility] HEP B SURFACE AB REACTIVE 02/07/2025 4:[address] [place] LAW CLERK [facility] HAV IGM NON-REACTIVE NON-REACT RICKI 02/07/2025 2:[address] [facility] [place] LAW CLERK [facility] HEPATITIS C AB NON-REACTIVE NON-REACT RICKI 02/07/2025 2:[address] [facility] [place] LAW CLERK [facility] BLOOD VENOUS BLOOD SPECIMEN / Unknown 02/07/2025 10:[address] [place] LAW CLERK us Gemma Khan MD LABORATORY Final Result [facility] [address] [place] [address], * HEPATITIS B SURFACE ANTIBODY (02/07/2025 10:[address] [facility] [place] LAW CLERK) Pathologist [facility] HEP B SURFACE AB REACTIVE 02/07/2025 4:[address] [place] LAW CLERK [facility] BLOOD VENOUS BLOOD SPECIMEN / Unknown 02/07/2025 10:[address] [place] LAW CLERK us Gemma Khan MD LABORATORY Final Result [facility] [address] [place] [address], * RHEUMATOID FACTOR, QUANT (02/07/2025 10:[address] [facility] [place] LAW CLERK) Pathologist [facility] RHEUMATOID FACTOR <10 <15 IU/ML 02/07/2025 2:[address] [facility] [place] LAW CLERK [facility] BLOOD VENOUS BLOOD SPECIMEN / Unknown 02/07/2025 10:[address] [facility] [place] LAW CLERK us Gemma Khan MD LABORATORY Final Result [facility] [address] [place] [address], [place] [phone] * (ABNORMAL) COMPLEMENT C4 (02/07/2025 10:[address] [facility] [place] LAW CLERK) Pathologist [facility] COMPLEMENT C4 11(L) 15 - 57 mg/dL 02/10/2025 6:[address] [facility] [place] LAW CLERK [facility] Comment: Test Performed by Giuliano Corey, [facility], [address] [place] [address] Vinay Mahoney M.D., Ph.D., Director of Laboratories , [place] [id number] BLOOD VENOUS BLOOD SPECIMEN / Unknown 02/07/2025 10:[address] [place] LAW CLERK us Gemma Khan MD LABORATORY Final Result [facility] [address] [place] [address], [place] [phone] * COMPLEMENT C3 (02/07/2025 10:[address] [facility] [place] LAW CLERK) COMPLEMENT C3 95.3 90.0 - 180.0 MG/DL 02/07/2025 6:[address] [place] LAW CLERK [facility] BLOOD VENOUS BLOOD SPECIMEN / Unknown 02/07/2025 10:[address] [place] LAW CLERK us Gemma Khan MD LABORATORY Final Result Performing Organization Address [facility]/ZIP Co de Phone Number [facility] [address] [place] [address], [place] [phone] * CARDIOLIPIN ANTIBODIES (IGG,IGA,IGM) (02/07/2025 10:[address] [facility] [place] LAW CLERK) CARDIOLIPIN AB IGG <2.0 <20.0 GPL 2024 6:[address] [place] LAW CLERK [facility] MADDI MEHTA Comment: U/mL Value Interpretation ----- < 20.0 Antibody not detected > or = 20.0 Antibody detected CARDIOLIPIN AB IGM 2.3 <20.0 MPL 2024 6:[address] [facility] [place] LAW CLERK [facility] MADDI MEHTA Comment: U/mL Value Interpretation ----- < 20.0 Antibody not detected > or = 20.0 Antibody detected The antiphospholipid antibody syndrome (APS) is a clinical-pathologic correlation that includes a clinical event (e.g. arterial or venous thrombosis, morbidity) and persistent positive antiphospholipid antibodies (IgM, IgG Cardiolipin or b2GPI antibodies greater than the 99th percentile; or a lupus anticoagulant). International consensus guidelines for APS suggest waiting at least 12 weeks before retesting to confirm antibody persistence. The Systemic Lupus International Collaborating [facility]ics immunological classification criteria for systemic lupus erythematosus (SLE) include testing for isotype IgA, which has yet to be incorporated into APS criteria. Low level antiphospholipid antibodies may sometimes be detected in the setting of infection, drug therapy or aging. For additional information, please refer to http://[employer].Kenguru/faq/RJD734 (This link is being provided for informational/ educational purposes only.) Test Performed by [facility], [email or web address] [place], [address] [place] [address] Vinay Mahoney M.D., Ph.D., Director of Laboratories , CLIA [id number] CARDIOLIPIN AB IGA <2.0 <20.0 APL 2024 6:[address] [facility] [place] LAW CLERK [facility] MADDI MEHTA Comment: U/mL Value Interpretation ----- < 20.0 Antibody not detected > or = 20.0 Antibody detected BLOOD VENOUS BLOOD SPECIMEN / Unknown 02/07/2025 10:[address] [place] LAW CLERK Gemma Khan MD LABORATORY Final Result [facility] [address], * LUPUS ANTICOAGULANT EVAL W/RFX (02/07/2025 10:[address] [facility] [place] LAW CLERK) LUPUS ANTICOAGULANT REPORT 02/10/2025 9:[address] [place] LAW CLERK [facility] MISAEL BOWIE Comment: A Lupus Anticoagulant is not detected. Reference Range: Not Detected For additional information, please refer to http://[employer]uru/faq/DFO16x3 (This link is being provided for informational/ educational purposes only.) This interpretation is based on the following test results. PTT (LUPUS ANTICOAGULANT) 30 <=40 sec 02/10/2025 9:[address] [place] LAW CLERK [facility] KRAUS-CHANTIL LY Comment: Test Performed by [facility] [place], [address] [place], [place] Vinay Mahoney M.D., Ph.D., Director of Laboratories , [facility] [id number] DRVVT SCREEN 33 <=45 sec 02/10/2025 9:[address] [facility] [place] LAW CLERK [facility] [employer] [facility] YUSRATIL LY BLOOD VENOUS BLOOD SPECIMEN / Unknown 02/07/2025 10:[address] [place] LAW CLERK Gemma Khan MD LABORATORY Final Result [facility] [address] [place], [place] , documented in this encounter Visit Diagnoses Diagnosis Fibromyalgia- Primary Mylagia and myositis, unspecified documented in this encounter Care Teams Wind Energy Technician Relationship Specialty Start Date End Date Onofre Rubio MD [address] [address] PCP - General INTERNAL MEDICINE 03/16/19 Kirby Sandhu MD [address] [address] NEUROLOGY 03/20/19 Fawad Swift MD [address] [facility] [address] [place] [address] Referring Physician ORTHOPAEDIC SURGERY 03/20/19 documented as of this encounter
--- OUTSIDE RECORDS SUMMARY | 2025-02-11 11:43 | XMS_ITS | Clinical Summary ---
Author Organization [facility] Address [address] [place] [address] Care Team Providers Care Neurophysiological Technician Name Role Phone Onofre Rubio MD Primary Care Provider Kirby Sandhu MD Unavailable [phone] Fawad Swift MD Unavailable [phone] Allergies Active Allergy Reactions Criticality Noted Date Comments Tape Rash Low 03/20/2019 Plastic tape causes rashes, tolerates paper tape okay Cefixime Rash Low 06/25/2012 Suprax Doxycycline GI Upset Medium 06/29/2024 Nitrofurantoin Joint Pain 03/16/2019 Medications No known medications Active Problems Problem Noted Date Diagnosed Date Elevated blood pressure read ing without diagnosis of hypertension 11/14/2024 Headache 11/14/2024 Hydrosalpinx 11/14/2024 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 Otitis media 11/14/2024 Pelvic pain 11/14/2024 Post-operative pain 11/14/2024 Pain in left leg 11/14/2024 Dystonia 11/14/2024 Arthralgia of multiple joints 10/18/2024 Pain in both hands 10/18/2024 Right lower quadrant pain 10/16/2024 Elevated bilirubin 09/21/2024 Hepatic steatosis 09/21/2024 Fatigue 08/02/2024 Sinusitis 08/02/2024 Leukopenia 07/10/2024 Epidermoid cyst of skin 07/05/2024 Steatosis of liver 07/03/2024 Cyst of skin 07/03/2024 Arthralgia of left knee 09/15/2023 Left knee pain 09/15/2023 Dermoid cyst 01/05/2023 Skin lesion 12/23/2022 Asthma 10/15/2022 COVID-19 10/15/2022 Hyperbilirubinemia 10/15/2022 Hyperlipidemia 10/15/2022 Vitamin D deficiency 10/15/2022 Upper respiratory infection 08/12/2022 Cholelithiasis without obstruction 05/26/2022 Fatty (change of) liver, not elsewhere classifie d 05/11/2022 Gallstone 05/11/2022 Acute urinary tract infection 04/08/2022 Pain in joint of left shoulder 11/13/2021 Cardiac murmur 04/10/2020 Cold hands 04/10/2020 Raynaud's phenomenon 04/10/2020 Peripheral polyneuropathy 06/01/2018 , incidental 06/25/2012 Paroxysmal dystonia 08/11/1997 Resolved Problems Problem Noted Date Diagnosed Date Resolved Date Encounter for screening for malignant neoplasm of colon 01/17/2024 01/24/2024 Encounter for screening for malignant neoplasm of colon 01/17/2024 03/20/2024 Encounter for preventive health examination 06/25/2012 08/07/2024 Encounters Date Type Department Care Team Description 02/07/2025 9:56 AM IT GENERALIST - 02/07/2025 11:59 PM IT GENERALIST Hospital Encounter [facility] [address] [place] [address] Luis F Osborne MD Discharge Disposition: Home or Self Care (Routine Discharge) 02/07/2025 9:55 AM IT GENERALIST Hospital Encounter [facility] [address] [place] [address] Luis F Osborne MD Discharge Disposition: Home or Self Care (Routine Discharge) 02/07/2025 Orders Only [facility] [address] [place] [address] Gemma Khan MD 02/07/2025 Travel 01/25/2025 2:29 PM IT GENERALIST - 01/25/2025 11:59 PM IT GENERALIST Hospital Encounter [facility] [address] [place] [address] Isatu Chavez NP Discharge Disposition: Home or Self Care (Routine Discharge) 01/25/2025 Orders Only [facility] [address] [place] [address] Isatu Chavez NP 01/25/2025 Travel 01/23/2025 8:55 AM IT GENERALIST - 01/23/2025 11:59 PM IT GENERALIST Hospital Encounter [facility] [address] [place] [address] Isatu Chavez NP Discharge Disposition: Home or Self Care (Routine Discharge) 01/23/2025 Orders Only [facility] [address] [place] [address] Isatu Chavez NP 01/23/2025 Travel 12/26/2024 Scan [employer] [facility] 12/25/2024 11:20 AM CDT - 12/25/2024 11:59 PM CDT Hospital Encounter [facility] [address] [place] [address] Bozena Neal, PA Discharge Disposition: Home or Self Care (Routine Discharge) 12/25/2024 10:35 AM CDT Office Visit [facility] [address] [address] Bozena Neal, PA Rectal Problem (Stomach crampting 2 nights ago-noticed blood in underwear-than noticed diarrhea) 12/25/2024 Results Follow-Up [facility] [address] [address] Bozena Neal, PA CBC W/DIFF AUTOMATED, COMPREHENSIVE METABOLIC PANEL, CLOSTRIDIUM DIFFICILE, Additional followed-up results: 3 12/25/2024 Travel 11/14/2024 9:27 AM CDT - 11/14/2024 11:59 PM CDT Hospital Encounter [facility] [address] [place] [address] Martín Lundberg PA Discharge Disposition: Home or Self Care (Routine Discharge) 11/14/2024 9:00 AM CDT Office Visit [facility] [address] [address] Martín Lundberg PA Fatigue (Headaches, body aches-x 1 day, nauseated-x 2 days-also random bruising to legs) 11/14/2024 Results Follow-Up [facility] [address] [address] Martín Lundberg PA COMPREHENSIVE METABOLIC PANEL, CBC W/DIFF AUTOMATED 11/14/2024 Travel from Last 3 Months Immunizations Immunization Administration Dates Next Due Influenza (Generic) 12/14/2016, 7,01/16/2014,2013 Influenza Adult (Generic) 12/20/2019,09/2019,12/09/2019,2019,12/15/2016,12/15/2016,12/18/2015,1 ,01/16/2014 [facility]ER[facility] COVID-19 (12+) MRNA, LNP-S, PF, 100 MCG/ 0.5 ML DOSE 02/18/2021,06/10/2020,06/10/2020,2020,05/10/2020 MODERNA COVID-19 (GLOBAL PROGRAM MANAGER LEA SURESH), MRNA, LNP-S, PF, 50 MCG/ 0.25 ML DOSE 02/18/2021 Family History Medical History Relation Comments Cancer Father gliomyosarcoma Breast Cancer Mother Cancer Mother breast cancer Diabetes Mother Hypertension Mother Stroke Mother Relation Status Comments Daughter 1 Alive Daughter 2 Alive Daughter 3 Alive Father Alive Mother Alive Sister Alive Social History Tobacco Use Types Packs/Day Years Used Date Smoking Tobacco: Never Passive Smoke Exposure: Never Smokeless Tobacco: Never Tobacco Cessation:Counseling Given: No Comments:tried cigarettes during high school Alcohol Use Standard Drinks/Week Comments [...] on file Sexual Orientation Not on file Last Filed Vital Signs Vital Sign Reading Time Taken Comments Blood Pressure 124/76 12/25/2024 10:39 AM CDT Pulse 56 12/25/2024 10:39 AM CDT Temperature 36.6 C (97.9 F) 12/25/2024 10:39 AM CDT Respiratory Rate 20 12/25/2024 10:39 AM CDT Oxygen Saturation 100% 12/25/2024 10:39 AM CDT Inhaled Oxygen Concentration - - Weight 63 kg (139 lb) 12/25/2024 10:39 AM CDT Height 165.1 cm (5' 5) 12/25/2024 10:39 AM CDT Body Mass Index 23.13 12/25/2024 10:39 AM CDT Plan of Treatment Health Maintenance Due Date Last Done Comments Annual Physical 1981 Hepatitis C 1996 DTaP, Tdap and Td Vaccines (1 - Tdap) 1997 Hepatitis A Vaccines (1 of 2 - Risk 2-dose series) 1997 Hepatitis B Vaccines (1 of 3 - 19+ 3-dose series) 1997 Pneumococcal Vaccine: Pediatrics (0 to 5 Years) and At-Risk Patients (6 to 49 Years) (1 of 2 - PCV) 1997 PHQ-2 (Physician [place]) 03/15/2024 08/13/2023 COVID-19 Vaccine ( season) 2024 02/18/2021, 02/18/2021, 06/10/2020, Additional history exists Influenza Adult (#1) 2024 12/20/2019, 12/20/2019, 12/09/2019, Additional history exists Mammogram Screening 02/09/2025 02/09/2023, 06/19/2021, 10/24/2019 Colorectal Cancer Screening Colonoscopy (10 Years) 03/17/2034 03/17/2024, 03/17/2024 Meningococcal B Vaccine Aged Out No l onger eligible based on patient's age to complete this topic Meningococcal Vaccine Aged Out No chapito guero eligible based on patient's age to complete this topic RSV Immunizations Under 20 Months Aged Out No longer eligible based on patient's age to complete this topic Medical Devices Implanted Type Area Coffee Taster Device Identifier Shelf Expiration Date Model / Serial / Lot 2.7 Mm Variable Angle Lcp Lateral Distal Fibula Plate Implanted:Qty: 1 on 03/21/2019 by Fawad Swift MD at [facility] Plate Right: Ankle SYNTHES [id number] / / 2.7 Variable Angle Locking Screw 18mm Implanted:Qty: 1 on 03/21/2019 by Fawad Swift MD at [facility] Screw Right: Ankle SYNTHES [id number] / / 2.7 Variable Angle Locking Screw 16mm Implanted:Qty: 1 on 03/21/2019 by Fawad Swift MD at [facility] Screw Right: Ankle SYNTHES 02.211.016 / / 2.7 Variable Angle Locking Screw 14mm Implanted:Qty: 1 on 03/21/2019 by Fawad Swift MD at [facility] Screw Right: Ankle SYNTHES [id number] / / 3.5mm Cortex Screw 18mm Implanted:Qty: 1 on 03/21/2019 by Fawad Swift MD at [facility] Screw Right: Ankle SYNTHES 204.818 / / 3.5mm Cortex Screw 16mm Implanted:Qty: 1 on 03/21/2019 by Fawad Swift MD at [facility] Screw Right: Ankle SYNTHES 204.816 / / 2.7mm Cortex,Self Tapping 18mm Implanted:Qty: 2 on 03/21/2019 by Fawad Swift MD at [facility] Screw Right: Ankle SYNTHES 202.818 / / 4.0 Cannulated Screw,Short Thread Implanted:Qty: 1 on 03/21/2019 by Fawad Swift MD at [facility] Screw Right: Ankle SYNTHES 207.646 / / Explanted Type Area Coffee Taster Device Identifier Shelf Expiration Date Model / Serial / Lot 2.7mm Cortex, Self Tapping 14mm Implanted:Qty: 2 Explanted:Qty: 2 on 03/21/2019 at [facility] [employer] Screw Right: Ankle SYNTHES .814 / / Procedures Procedure Name Priority Date/Time Associated Diagnosis Comments XR HAND RT 2V Routine 02/07/2025 10:31 AM IT GENERALIST Fibromyalgia XR HAND LT 2V Routine 02/07/2025 10:31 AM IT GENERALIST Fibromyalgia XR FOOT LT 2V Routine 02/07/2025 10:31 AM IT GENERALIST Fibromyalgia XR FOOT RT 2V Routine 02/07/2025 10:31 AM IT GENERALIST Fibromyalgia XR SI JOINTS Routine 02/07/2025 10:31 AM IT GENERALIST Fibromyalgia XR LUMB SPINE 3V Routine 02/07/2025 10:3 1 AM IT GENERALIST Fibromyalgia HEPATITIS A,B,& C Routine 02/07/2025 10: 05 AM IT GENERALIST Fibromyalgia HEPATITIS B SURFACE ANTIBODY Routine 02/07/2025 10:05 AM IT GENERALIST Fibromyalgia RHEUMATOID FACTOR, QUANT Routine 02/07/2025 10:05 AM IT GENERALIST Fibromyalgia COMPLEMENT C4 Routine 02/07/2025 10:05 AM IT GENERALIST Fibromyalgia COMPLEMENT C3 Routine 02/07/2025 10:05 AM IT GENERALIST Fibromyalgia CARDIOLIPIN ANTIBODIES (IGG,IGA,IGM) Routine 02/07/2025 10:05 AM IT GENERALIST Fibromyalgia LUPUS ANTICOAGULANT EVAL W/RFX Routine 02/07/2025 10:05 AM IT GENERALIST Fibromyalgia COMPREHENSIVE METABOLIC PANEL Routine 01/25/2025 2:34 PM IT GENERALIST Elevated bilirubin Hepatic steatosis HC CBC AUTO W/AUTO DIFF Routine 01/23/2025 9:14 AM IT GENERALIST Elevated bilirubin Hepatic steatosis GI PANEL PCR - STOOL Routine 12/25/2024 1:22 PM CDT Diarrhea, unspecified type Hematochezia HC EIA QL CLOS DIFF TOXIN AG Routine 12/25/2024 1:22 PM CDT Diarrhea, unspecified type Hematochezia HC OVA & PARASITE W/STAIN-90 Routine 12/25/2024 1:22 PM CDT Diarrhea, unspecified type HC LIPASE Routine 12/25/2024 11:38 AM CDT Generalized abdominal tenderness without rebound tenderness HC COMPREHENSIVE METABOL PANEL Routine 12/25/2024 11:37 AM CDT Generalized abdominal tenderness without rebound tenderness HC CBC AUTO W/AUTO DIFF Routine 12/25/2024 11:37 AM CDT Hematochezia HC CBC AUTO W/AUTO DIFF STAT 11/14/2024 9:34 AM CDT Nausea HC COMPREHENSIVE METABOL PANEL STAT 11/14/2024 9:34 AM CDT Nausea CORONAVIRUS (COVID-19) INFLUENZA A & B ANTIGEN IA PANEL Routine 11/14/2024 Suspected COVID-19 virus infection COLONOSCOPY Routine 03/17/2024 8:38 AM IT GENERALIST MG SCREENING W JOCY HONORIO DIGI Routine 02/09/2023 3:38 PM IT GENERALIST Encounter for screening mammogram for malignant neoplasm of breast from Last 3 Months or Most Recently Relevant to Health Maintenance Results * XR FOOT RT 2V (02/07/2025 10:31 AM IT GENERALIST) Anatomical Region Laterality Modality Foot Radiographic Bertha ging 02/09/2025 7:59 AM IT GENERALIST Impressions 02/09/2025 8:02 AM IT GENERALIST IMPRESSION: No acute osseous abnormality. Referred By: Interpreted By: Mango Sandoval MD, 02/09/2025 7:59 AM Narrative 02/09/2025 8:02 AM IT GENERALIST [address] [place] [address] IMAGING STUDIES: XR FOOT RT 2V DATE: 02/07/2025 10:08 AM CLINICAL HISTORY: fibromyalgia. COMPARISON: No Comparisons. FINDINGS: 2 view foot demonstrates no evidence of acute fracture, dislocation or osseous erosion. Articular margins are within normal limits.. No radiopaque foreign bodies or soft tissue abnormalities. Hardware noted within the medial and lateral malleolus. Procedure Note Mango Sandoval MD - 02/09/2025 [place] [id number] [facility] [address] [place] [address] IMAGING STUDIES: XR FOOT RT 2V DATE: 02/07/2025 10:08 AM CLINICAL HISTORY: fibromyalgia. COMPARISON: No Comparisons. FINDINGS: 2 view foot demonstrates no evidence of acute fracture, dislocation orosseous erosion. Articular margins are within normal limits.. No radiopaque foreign bodiesor soft tissue abnormalities. Hardware noted within the medial and lateral malleolus. IMPRESSION: No acute osseous abnormality. Referred By: Interpreted By: Mango Sandoval MD, 02/09/2025 7:59 AM Gemma Khan MD GENERAL IMAGING Final Result * XR FOOT LT 2V (02/07/2025 10:31 AM IT GENERALIST) Anatomical Region Laterality Modality Foot Radiographic Betrha ging 02/09/2025 8:02 AM IT GENERALIST Impressions 02/09/2025 8:03 AM IT GENERALIST IMPRESSION: No acute osseous abnormality. Referred By: Interpreted By: Mango Sandoval MD, 02/09/2025 8:02 AM Narrative 02/09/2025 8:03 AM IT GENERALIST [facility] [address] [place] [address] IMAGING STUDIES: XR FOOT LT 2V DATE: 02/07/2025 10:08 AM CLINICAL HISTORY: fibromyalgia. COMPARISON: No Comparisons. FINDINGS: 2 view foot demonstrates no evidence of acute fracture, dislocation or osseous erosion. Articular margins are within normal limits.. No radiopaque foreign bodies or soft tissue abnormalities. . Small Achilles tendon insertion spur. Procedure Note Mango Sandoval MD - 02/09/2025 [facility] [address] [place] [address] IMAGING STUDIES: XR FOOT LT 2V DATE: 02/07/2025 10:08 AM CLINICAL HISTORY: fibromyalgia. COMPARISON: No Comparisons. FINDINGS: 2 view foot demonstrates no evidence of acute fracture, dislocation orosseous erosion. Articular margins are within normal limits.. No radiopaque foreign bodiesor soft tissue abnormalities. . Small Achilles tendon insertion spur. IMPRESSION: No acute osseous abnormality. Referred By: Interpreted By: Mango Sandoval MD, 02/09/2025 8:02 AM Gemma Kahn MD GENERAL IMAGING Final Result * XR SI JOINTS (02/07/2025 10:31 AM IT GENERALIST) Anatomical Region Laterality Modality Pelvis Radiographic Bertha ging 02/09/2025 8:04 AM IT GENERALIST Impressions 02/09/2025 8:05 AM IT GENERALIST IMPRESSION: Mild degenerative change in the sacroiliac joints. Referred By: Interpreted By: Mango Sandoval MD, 02/09/2025 8:04 AM Narrative 02/09/2025 8:05 AM IT GENERALIST [facility] [address] [place] [address] IMAGING STUDIES: XR SI JOINTS DATE: 02/07/2025 10:08 AM CLINICAL HISTORY: fibromyalgia. COMPARISON: No Comparisons. FINDINGS: . Mild degenerative change in the sacroiliac joints. No sclerosis or gross ankylosis. Procedure Note Mango Sandoval MD - 02/09/2025 [facility] [address] [place] [address] IMAGING STUDIES: XR SI JOINTS DATE: 02/07/2025 10:08 AM CLINICAL HISTORY: fibromyalgia. COMPARISON: No Comparisons. FINDINGS: . Mild degenerative change in the sacroiliac joints. No sclerosis or gross ankylosis. IMPRESSION: Mild degenerative change in the sacroiliac joints. Referred By: Interpreted By: Mango Sandoval MD, 02/09/2025 8:04 AM Gemma Khan MD GENERAL IMAGING Final Result * XR LUMB SPINE 3V (02/07/2025 10:31 AM IT GENERALIST) Anatomical Region Laterality Modality Spine Radiographic Bertha ging 02/09/2025 8:03 AM IT GENERALIST Impressions 02/09/2025 8:04 AM IT GENERALIST IMPRESSION: No acute abnormality. Referred By: Interpreted By: Mango Sandoval MD, 02/09/2025 8:03 AM Narrative 02/09/2025 8:04 AM IT GENERALIST [facility] [address] [place] [address] IMAGING STUDIES: XR LUMB SPINE 3V DATE: 02/07/2025 10:08 AM COMPARISON: No comparisons. CLINICAL HISTORY: fibromyalgia. FINDINGS: No evidence of acute fracture or dislocation. Vertebral body heights and intervertebral disc spaces are well maintained. Minor endplate degenerative change. No spondylolisthesis. No paraspinal lesions. Procedure Note Mango Sandoval MD - 02/09/2025 [facility] [address] [place] [address] IMAGING STUDIES: XR LUMB SPINE 3V DATE: 02/07/2025 10:08 AM COMPARISON: No comparisons. CLINICAL HISTORY: fibromyalgia. FINDINGS: No evidence of acute fracture or dislocation. Vertebral body heights and intervertebral disc spaces are well maintained. Minor endplate degenerative change. No spondylolisthesis. No paraspinal lesions. IMPRESSION: No acute abnormality. Referred By: Interpreted By: Mango Sandoval MD, 02/09/2025 8:03 AM Gemma Khan MD GENERAL IMAGING Final Result * XR HAND RT 2V (02/07/2025 10:31 AM IT GENERALIST) Anatomical Region Laterality Modality Hand Radiographic Bertha ging 02/09/2025 7:58 AM IT GENERALIST Impressions 02/09/2025 7:59 AM IT GENERALIST IMPRESSION: No acute osseous abnormality. Referred By: Interpreted By: Mango Sandoval MD, 02/09/2025 7:58 AM Narrative 02/09/2025 7:59 AM IT GENERALIST [facility] [address] [place] [address] IMAGING STUDIES: XR HAND RT 2V DATE: 02/07/2025 10:08 AM CLINICAL HISTORY: fibromyalgia. COMPARISON: No Comparisons. FINDINGS: No evidence of acute fracture or dislocation. Articular margins are within normal limits.. Mild degenerative type change in the interphalangeal joint of the thumb No radiopaque foreign bodies or abnormal soft tissue calcifications noted. Procedure Note Mango Sandoval MD - 02/09/2025 [facility] [address] [place] [address] IMAGING STUDIES: XR HAND RT 2V DATE: 02/07/2025 10:08 AM CLINICAL HISTORY: fibromyalgia. COMPARISON: No Comparisons. FINDINGS: No evidence of acute fracture or dislocation. Articular margins are withinnormal limits.. Mild degenerative type change in the interphalangeal joint of the thumb No radiopaque foreign bodies or abnormal soft tissue calcificationsnoted. IMPRESSION: No acute osseous abnormality. Referred By: Interpreted By: Mango Sandoval MD, 02/09/2025 7:58 AM Gemma Khan MD GENERAL IMAGING Final Result * XR HAND LT 2V (02/07/2025 10:31 AM IT GENERALIST) Anatomical Region Laterality Modality Hand Radiographic Bertha ging 02/09/2025 7:56 AM IT GENERALIST Impressions 02/09/2025 7:58 AM IT GENERALIST IMPRESSION: 1. No acute osseous abnormality. 2. 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 Follow-up with dedicated views of the left wrist and possible MRI Referred By: Interpreted By: Mango Sandoval MD, 02/09/2025 7:56 AM Narrative 02/09/2025 7:58 AM IT GENERALIST [facility] [address] [place] [address] IMAGING STUDIES: XR HAND LT 2V DATE: 02/07/2025 10:08 AM CLINICAL HISTORY: fibromyalgia. COMPARISON: No Comparisons. FINDINGS: No evidence of acute fracture or dislocation. Articular margins are within normal limits.. No radiopaque foreign bodies or abnormal soft tissue calcifications noted. Incidental note made of mild sclerosis and loss of volume of the lunate bone in the wrist. Possible avascular necrosis. Procedure Note Mango Sandoval MD - 02/09/2025 [facility] [address] [place] [address] IMAGING STUDIES: XR HAND LT 2V DATE: 02/07/2025 10:08 AM CLINICAL HISTORY: fibromyalgia. COMPARISON: No Comparisons. FINDINGS: No evidence of acute fracture or dislocation. Articular margins are withinnormal limits.. No radiopaque foreign bodies or abnormal soft tissue calcifications noted. Incidental note made of mild sclerosis and loss of volume of the lunatebone in the wrist. Possible avascular necrosis. IMPRESSION: 1. No acute osseous abnormality. 2. 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 Follow-up withdedicated views of the left wrist and possible MRI Referred By: Interpreted By: Mango Sandoval MD, 02/09/2025 7:56 AM us Gemma Khan MD GENERAL IMAGING Final Result * RHEUMATOID FACTOR, QUANT (02/07/2025 10:05 AM IT GENERALIST) RHEUMATOID FACTOR <10 <15 IU/ML 02/07/2025 2:07 PM IT GENERALIST [facility] BLOOD VENOUS BLOOD SPECIMEN / Unknown 02/07/2025 10:05 AM IT GENERALIST us Gemma Khan MD LABORATORY Final Result Performing Organization Address City/[facility]/ZIP Co de Phone Number [facility] [address] [place] [address], * HEPATITIS B SURFACE ANTIBODY (02/07/2025 10:05 AM IT GENERALIST) HEP B SURFACE AB REACTIVE 02/07/2025 4:00 PM IT GENERALIST [facility] BLOOD VENOUS BLOOD SPECIMEN / Unknown 02/07/2025 10:05 AM IT GENERALIST us Gemma Khan MD LABORATORY Final Result [facility] [address] [place] [address], [place] [phone] * (ABNORMAL) COMPLEMENT C4 (02/07/2025 10:05 AM IT GENERALIST) Pathologist [facility] COMPLEMENT C4 11(L) 15 - 57 mg/dL 02/10/2025 6:51 PM IT GENERALIST [employer] MISAEL BOWIE Comment: Test Performed by Mynor Core[facility], [employer] [facility] [place], [address] [place] [address] Vinay Mahoney M.D., Ph.D., Director of Laboratories , [facility] [id number] BLOOD VENOUS BLOOD SPECIMEN / Unknown 02/07/2025 10:05 AM IT GENERALIST us Gemma Khan MD LABORATORY Final Result [facility] [address] [place] [address] , [place] [phone] * COMPLEMENT C3 (02/07/2025 10:05 AM IT GENERALIST) [facility] COMPLEMENT C3 95.3 90.0 - 180.0 MG/DL 02/07/2025 6:49 PM IT GENERALIST [facility] BLOOD VENOUS BLOOD SPECIMEN / Unknown 02/07/2025 10:05 AM IT GENERALIST us Gemma Khan MD LABORATORY Final Result [facility] [address] [place] [address], [place] [phone] [phone] * LUPUS ANTICOAGULANT EVAL W/RFX (02/07/2025 10:05 AM IT GENERALIST) Pathologist [facility] LUPUS ANTICOAGULANT REPORT 02/10/2025 9:00 PM IT GENERALIST Si [employer] MISAEL BOWIE Comment: A Lupus Anticoagulant is not detected. Reference Range: Not Detected For additional information, please refer to http://education.SellanApp/faq/FJU97f7 (This link is being provided for informational/ educational purposes only.) This interpretation is based on the following test results. PTT (LUPUS ANTICOAGULANT) 30 <=40 sec 02/10/2025 9:00 PM IT GENERALIST Si TV [id number]ER[employer]AMRIT LY Comment: Test Performed by [employer] [place], [employer] [facility], [address] [place] [address] Vinay Mahoney M.D., Ph.D., Director of Laboratories , [facility] [id number] DRVVT SCREEN 33 <=45 sec 02/10/2025 9:00 PM IT GENERALIST [email or web address] PharmaceuticalsKATERINA BOWIE BLOOD VENOUS BLOOD SPECIMEN / Unknown 02/07/2025 10:05 AM IT GENERALIST Gemma Khan MD LABORATORY Final Result [facility] [phone], * CARDIOLIPIN ANTIBODIES (IGG,IGA,IGM) (02/07/2025 10:05 AM IT GENERALIST) CARDIOLIPIN AB IGG <2.0 <20.0 GPL 2024 6:21 AM IT GENERALIST Si TV MADDI MEHTA Comment: U/mL Value Interpretation ----- < 20.0 Antibody not detected > or = 20.0 Antibody detected CARDIOLIPIN AB IGM 2.3 <20.0 MPL 2024 6:21 AM IT GENERALIST Si TV MADDI MEHTA Comment: U/mL Value Interpretation ----- [...] aging. For additional information, please refer to http://education.SellanApp/faq/RBR089 (This link is being provided for informational/ educational purposes only.) Test Performed by [employer], [employer] [facility], [address] [place] [address] Vinay Mahoney M.D., Ph.D., Director of Laboratories , CLIA [id number] CARDIOLIPIN AB IGA <2.0 <20.0 APL 2024 6:21 AM IT GENERALIST Si TV [facility] Comment: U/mL Value Interpretation ----- < 20.0 Antibody not detected > or = 20.0 Antibody detected BLOOD VENOUS BLOOD SPECIMEN / Unknown 02/07/2025 10:05 AM IT GENERALIST Gemma Khan MD LABORATORY Final Result [facility] [phone], * HEPATITIS A,B,& C (02/07/2025 10:05 AM IT GENERALIST) HEPATITIS B SURFACE AG NON-REACTIVE NON-REACT RICKI 02/07/2025 2:47 PM IT GENERALIST [facility] HEP B CORE TOTAL AB NON-REACTIVE NON-REACT RICKI 02/07/2025 2:56 PM IT GENERALIST [facility] HEP B SURFACE AB REACTIVE 02/07/2025 4:00 PM IT GENERALIST [facility] HAV IGM NON-REACTIVE NON-REACT RICKI 02/07/2025 2:58 PM [facility] HEPATITIS C AB NON-REACTIVE NON-REACT RICKI 02/07/2025 2:55 PM [facility] BLOOD VENOUS BLOOD SPECIMEN / Unknown 02/07/2025 10:05 AM IT GENERALIST Gemma Khan MD LABORATORY Final Result [facility] [address] [place] [address], * (ABNORMAL) COMPREHENSIVE METABOLIC PANEL (01/25/2025 2:34 PM IT GENERALIST) GLUCOSE 90 70 - 99 MG/DL 01/25/2025 3:01 PM [facility] BUN 16 7 - 18 MG/DL 01/25/2025 3:01 PM [facility] CREATININE S/P/B 1.12(H) 0.55 - 1.02 MG/DL 01/25/2025 3:01 PM [facility] SODIUM S/P/B 137 136 - 145 MMOL/L 01/25/2025 3:01 PM [facility] POTASSIUM S/P/B 3.8 3.5 - 5.1 MMOL/L 01/25/2025 3:01 PM [facility] CHLORIDE S/P/B 101 100 - 108 MMOL/L 01/25/2025 3:01 PM [facility] CO2 30.1 21 - 32 MMOL/L 01/25/2025 3:01 PM [facility] CALCIUM S/P/B 8.9 8.5 - 10.1 MG/DL 01/25/2025 3:01 PM IT GENERALIST [facility] BILIRUBIN TOTAL S/P/B 1.4(H) 0.2 - 1.2 MG/DL 01/25/2025 3:01 PM [facility] TOTAL PROTEIN S/P/B 7.3 6.4 - 8.2 G/DL 01/25/2025 3:01 PM [facility] ALBUMIN S/P/B 4.0 3.4 - 5.0 G/DL 01/25/2025 3:01 PM [facility] AST 18 15 - 37 U/L 01/25/2025 3:01 PM [facility] ALT 25 14 - 55 U/L 01/25/2025 3:01 PM [facility] ALKALINE PHOSPHATASE S/P/B 53 50 - 136 U/L 01/25/2025 3:01 PM [facility] ANION GAP 5.9 5 - 15 MMOL/L 01/25/2025 3:01 PM [facility] BUN CREATININE RATIO 14.3 6 - 26 01/25/2025 3:01 PM [facility] A/G RATIO 1.2 1.0 - 2.0 RATIO 01/25/2025 3:01 PM [facility] GFR ESTIMATE 61(L) >90 ML/MIN/1.7 3 M2 01/25/2025 3:01 PM [facility] Comment: NOTE: eGFR is not calculated for patients <18 years of age. This is an estimated GFR calculation using the new CKD EPI creatinine equation without race and so does not require a correction factor for race. This estimated GFR should not be used for calculating drug doses. BLOOD VENOUS BLOOD SPECIMEN / Unknown 01/25/2025 2:34 PM IT GENERALIST Isatu Chavez NP LABORATORY Final Re sult [facility] [address] [address] [place] [id number], * (ABNORMAL) CBC W/DIFF (01/23/2025 9:14 AM IT GENERALIST) [facility] Signature WBC 4.18(L) 4.4 - 11.0 x10'3/uL 01/23/2025 9:31 AM [facility] RBC 4.42(L) 4.50 - 5.10 x10'6/uL 01/23/2025 9:31 AM [facility] HGB 13.2 12.3 - 15.3 G/DL 01/23/2025 9:31 AM [facility] HCT 38.4 35.9 - 44.6 % 01/23/2025 9:31 AM [facility] MCV 86.9 80.0 - 96.0 FL 01/23/2025 9:31 AM [facility] MCH 29.9 25.3 - 30.9 PG 01/23/2025 9:31 AM [facility] MCHC 34.4(H) 31.0 - 34.1 G/DL 01/23/2025 9:31 AM [facility] RDW 12.0(L) 12.4 - 15.1 % 01/23/2025 9:31 AM [facility] PLT 176 151 - 353 x10'3/uL 01/23/2025 9:31 AM [facility] MPV 11.5 9.6 - 12.0 FL 01/23/2025 9:31 AM [facility] RBC MORPHOLOGY NORMAL 01/23/2025 9:31 AM [facility] PLT MORPH. NORMAL 01/23/2025 9:31 AM [facility] WBC MORPHOLOGY NORMAL 01/23/2025 9:31 AM [facility] LYMPHOCYTES % 39.7 15.8 - 45.0 % 01/23/2025 9:31 AM [facility] NEUTROPHILS % 52.0 42.1 - 71.9 % 01/23/2025 9:31 AM [facility] MONOCYTES % 6.9 5.7 - 12.5 % 01/23/2025 9:31 AM [facility] EOSINOPHILS 1.0 0.0 - 5.6 % 01/23/2025 9:31 AM [facility] BASOPHILS 0.2 0.0 - 1.3 % 01/23/2025 9:31 AM [facility] ABS. NEUTROPHILS 2.17 1.40 - 6.00 x10'3/uL 01/23/2025 9:31 AM [facility] IMMATURE GRANS % 0.2 0.0 - 0.5 % 01/23/2025 9:31 AM [facility] ABS. LYMPHOCYTES 1.66 0.80 - 4.70 x10'3/uL 01/23/2025 9:31 AM [facility] BLOOD VENOUS BLOOD SPECIMEN / Unknown 01/23/2025 9:14 AM IT GENERALIST Isatu Chavez NP LABORATORY Final Re sult [facility] [address] [place] [address], * (ABNORMAL) GI PANEL PCR - STOOL (12/25/2024 1:22 PM CDT) CAMPYLOBACTER PCR (STOOL) NOT DETECTED NOT DETECTED 12/25/2024 9:24 PM CDT [facility] PLESIOMONAS SHIGELLOIDES PCR (STOOL) NOT DETECTED NOT DETECTED 12/25/2024 9:24 PM CDT [facility] SALMONELLA PCR (STOOL) NOT DETECTED NOT DETECTED 12/25/2024 9:24 PM CDT [facility] VIBRIO PCR (STOOL) NOT DETECTED NOT DETECTED 12/25/2024 9:24 PM CDT [facility] VIBRIO CHOLERAE PCR (STOOL) NOT DETECTED NOT DETECTED 12/25/2024 9:24 PM CDT [facility] YERSINIA ENTEROCOLITICA PCR (STOOL) NOT DETECTED NOT DETECTED 12/25/2024 9:24 PM CDT [facility] ENTEROAGGREGATIVE ECOLI PCR (STOOL) NOT DETECTED NOT DETECTED 12/25/2024 9:24 PM CDT [facility] ENTEROPATHOGENIC ECOLI PCR (STOOL) DETECTED(AA ) NOT DETECTED 12/25/2024 9:24 PM CDT [facility] ENTEROTOXIGENIC ECOLI PCR (STOOL) NOT DETECTED NOT DETECTED 12/25/2024 9:24 PM CDT [facility] SHIGA LIKE TOXIN ECOLI PCR (STOOL) NOT DETECTED NOT DETECTED 12/25/2024 9:24 PM CDT [facility] SHIG/ENTEROINVASIVE ECOLI PCR (STOOL) NOT DETECTED NOT DETECTED 12/25/2024 9:24 PM CDT [facility] CRYPTOSPORIDIUM PCR (STOOL) NOT DETECTED NOT DETECTED 12/25/2024 9:24 PM CDT [facility] CYCLOSPORA CAYETANENSIS PCR (STOOL) NOT DETECTED NOT DETECTED 12/25/2024 9:24 PM CDT [facility] ENTAMOEBA HISTOLYTICA PCR (STOOL) NOT DETECTED NOT DETECTED 12/25/2024 9:24 PM CDT [facility] GIARDIA LAMBLIA PCR (STOOL) NOT DETECTED NOT DETECTED 12/25/2024 9:24 PM CDT [facility] ADENOVIRUS F40/41 PCR (STOOL) NOT DETECTED NOT DETECTED 12/25/2024 9:24 PM CDT [facility] ASTROVIRUS PCR (STOOL) NOT DETECTED NOT DETECTED 12/25/2024 9:24 PM CDT [facility] NOROVIRUS GI/GII PCR (STOOL) NOT DETECTED NOT DETECTED 12/25/2024 9:24 PM CDT [facility] ROTAVIRUS A PCR (STOOL) NOT DETECTED NOT DETECTED 12/25/2024 9:24 PM CDT [facility] SAPOVIRUS PCR (STOOL) NOT DETECTED NOT DETECTED 12/25/2024 9:24 PM CDT [facility] STOOL SPECIMEN / Unknown 12/25/2024 1:22 PM CDT us Bozena BAILEY MICROBIOLOGY - GENERAL ORDER CAL Final Result [facility] [address] [place] [address], * CLOSTRIDIUM DIFFICILE (12/25/2024 1:22 PM CDT) GDH ANTIGEN NEGATIVE NEGATIVE 12/25/2024 2:25 PM CDT [facility] C DIFFICILE TOXIN A&B (STOOL) NEGATIVE NEGATIVE 12/25/2024 2:25 PM CDT [facility] COMMENT GDH NEGATIVE/TOXI N A & B NEGATIVE: NEGATIVE FOR TOXIGENIC C. DIFFICILE. GDH NEGATIVE/TOXI N A & B NEGATIVE: NEGATIVE FOR TOXIGENIC C. 12/25/2024 2:25 PM CDT [facility] STOOL SPECIMEN / Unknown 12/25/2024 1:22 PM CDT us Bozena BAILEY BODY FLUIDS AND STOOLS ORDER CAL Final Result [facility] [address] [place] [address], * O&P CONC&SMEAR TO REF LAB (12/25/2024 1:22 PM CDT) SPECIMEN SOURCE STOOL 1:40 PM CDT [facility] O & P EXAMINATION (STOOL) REPORT 01/01/2025 3:18 PM CDT [facility] Comment: Ova and Parasites, Concentrate and Permanent Smear Examination for Ova and Parasites SOURCE : STOOL Result/Comment: NO OVA AND PARASITES SEEN. Reference Range: No Ova and Parasites seen Routine Ova and Parasite Exam may not detect some parasites that occasionally cause diarrheal illness. Cryptosporidium Antigen and/or Cyclospora and Isospora Exam may be ordered to detect these parasites. One negative sample does not necessarily rule out the presence of a parasitic infection. Assay performed by wet mount after concentration. Parasite Exam, Trichrome Stain SOURCE : STOOL Result/Comment: NO OVA AND PARASITES SEEN. Routine Ova and Parasite Exam may not detect some parasites that occasionally cause diarrheal illness. Cryptosporidium Antigen and/or Cyclospora and Isospora Exam may be ordered to detect these parasites. One negative sample does not necessarily rule out the presence of a parasitic infection. For additional information, please refer to https://education.cacaoTV.ScaleMP/faq/WOS783 (This link is being provided for informational/ educational purposes only.) Test Performed by Mynor Corey, [facility], [address] [place] [address] Vinay Mahoney M.D., Ph.D., Director of Laboratories , [place] [id number] STOOL SPECIMEN / Unknown 12/25/2024 1:22 PM CDT Bozena BAILEY MICROBIOLOGY - GENERAL ORDER CAL Final Result [facility] [address] [place], [place] , [place] [phone] [facility] [address] [place] [address], [place] [phone] * LIPASE (12/25/2024 11:38 AM CDT) LIPASE 32 16 - 77 UNITS/L 12/25/2024 1:58 PM CDT [facility] 12/25/2024 11:3 8 AM CDT Bozena BAILEY LABORATORY Final Result [facility] [address] [place] [address], [place] [phone] * COMPREHENSIVE METABOLIC PANEL (12/25/2024 11:37 AM CDT) Only the most recent of2 resultswithin the time period is included. Pathologist [facility] GLUCOSE 90 70 - 99 MG/DL 12/25/2024 12:05 PM CDT [facility] BUN 10 7 - 18 MG/DL 12/25/2024 12:05 PM T [facility] CREATININE S/P/B 0.73 0.55 - 1.02 MG/DL 12/25/2024 12:05 PM T [facility] SODIUM S/P/B 141 136 - 145 MMOL/L 12/25/2024 12:05 PM T [facility] POTASSIUM S/P/B 4.1 3.5 - 5.1 MMOL/L 12/25/2024 12:05 PM T [facility] CHLORIDE S/P/B 105 100 - 108 MMOL/L 12/25/2024 12:05 PM CDT [facility] CO2 29.6 21 - 32 MMOL/L 12/25/2024 12:05 PM [facility] CALCIUM S/P/B 9.0 8.5 - 10.1 MG/DL 12/25/2024 12:05 PM [facility] BILIRUBIN TOTAL S/P/B 1.1 0.2 - 1.2 MG/DL 12/25/2024 12:05 PM [facility] TOTAL PROTEIN S/P/B 7.4 6.4 - 8.2 G/DL 12/25/2024 12:05 PM [facility] ALBUMIN S/P/B 4.0 3.4 - 5.0 G/DL 12/25/2024 12:05 PM [facility] AST 18 15 - 37 U/L 12/25/2024 12:05 PM [facility] ALT 21 14 - 55 U/L 12/25/2024 12:05 PM [facility] ALKALINE PHOSPHATASE S/P/B 57 50 - 136 U/L 12/25/2024 12:05 PM [facility] ANION GAP 6.4 5 - 15 MMOL/L 12/25/2024 12:05 PM [facility] BUN CREATININE RATIO 13.7 6 - 26 12/25/2024 12:05 PM [facility] A/G RATIO 1.2 1.0 - 2.0 RATIO 12/25/2024 12:05 PM [facility] GFR ESTIMATE >90 >90 ML/MIN/1.7 3 M2 12/25/2024 12:05 PM [facility] Comment: NOTE: eGFR is not calculated for patients <18 years of age. This is an estimated GFR calculation using the new CKD EPI creatinine equation without race and so does not require a correction factor for race. This estimated GFR should not be used for calculating drug doses. 12/25/2024 11:3 7 AM CDT us Bozena BAILEY LABORATORY Final Result [facility] [address] [place] [address], [place] [phone] * (ABNORMAL) CBC W/DIFF AUTOMATED (12/25/2024 11:37 AM CDT) Only the most recent of2 resultswithin the time period is included. WBC 4.39(L) 4.4 - 11.0 x10'3/uL 12/25/2024 11:46 AM CDT [facility] RBC 4.57 4.50 - 5.10 x10'6/uL 12/25/2024 11:46 AM CDT [facility] HGB 13.6 12.3 - 15.3 G/DL 12/25/2024 11:46 AM CDT [facility] HCT 39.9 35.9 - 44.6 % 12/25/2024 11:46 AM CDT [facility] MCV 87.3 80.0 - 96.0 FL 12/25/2024 11:46 AM CDT [facility] MCH 29.8 25.3 - 30.9 PG 12/25/2024 11:46 AM CDT [facility] MCHC 34.1 31.0 - 34.1 G/DL 12/25/2024 11:46 AM CDT [facility] RDW 12.8 12.4 - 15.1 % 12/25/2024 11:46 AM CDT [facility] PLT 182 151 - 353 x10'3/uL 12/25/2024 11:46 AM CDT [facility] MPV 11.5 9.6 - 12.0 FL 12/25/2024 11:46 AM CDT [facility] RBC MORPHOLOGY NORMAL 12/25/2024 11:46 AM CDT [facility] PLT MORPH. NORMAL 12/25/2024 11:46 AM CDT [facility] WBC MORPHOLOGY NORMAL 12/25/2024 11:46 AM CDT [facility] LYMPHOCYTES % 33.9 15.8 - 45.0 % 12/25/2024 11:46 AM CDT [facility] NEUTROPHILS % 54.9 42.1 - 71.9 % 12/25/2024 11:46 AM CDT [facility] MONOCYTES % 9.1 5.7 - 12.5 % 12/25/2024 11:46 AM CDT [facility] EOSINOPHILS 1.4 0.0 - 5.6 % 12/25/2024 11:46 AM CDT [facility] BASOPHILS 0.5 0.0 - 1.3 % 12/25/2024 11:46 AM CDT [facility] ABS. NEUTROPHILS 2.41 1.40 - 6.00 x10'3/uL 12/25/2024 11:46 AM CDT [facility] IMMATURE GRANS % 0.2 0.0 - 0.5 % 12/25/2024 11:46 AM CDT [facility] ABS. LYMPHOCYTES 1.49 0.80 - 4.70 x10'3/uL 12/25/2024 11:46 AM CDT [facility] 12/25/2024 11:3 7 AM CDT us Bozena BAILEY LABORATORY Final Result [facility] [address] [place] [address], [place] [phone] * CORONAVIRUS (COVID-19) INFLUENZA A & B ANTIGEN IA PANEL (11/14/2024) CORONAVIRUS ANTIGEN IA NEGATIVE NEGATIVE [id number], [place] INFLUENZA A NEGATIVE NEGATIVE [id number], [place] INFLUENZA B NEGATIVE NEGATIVE [id number], [place] Internal Control: VALID VALID [id number] / Unknown 11/14/2024 Martín BAILEY MICROBIOLOGY - GENERAL ORDERAB LES Final Result [id number], [facility] [address] [place] [address], * MG SCREENING W JOCY HONORIO DIGI (02/09/2023 3:38 PM IT GENERALIST) Anatomical Region Laterality Modality Breast Bilateral Mammography 02/10/2023 11:2 5 AM IT GENERALIST Narrative 02/10/2023 11:25 AM IT GENERALIST Examination: Digital screening mammogram with CAD. Clinical history: Asymptomatic patient presents for routine screening. Comparison: 06/19/2021, 10/24/2019. Technique: Bilateral digital mammograms. The exam was interpreted with the use of a computer-aided detection (CAD) system. Additional 3-D tomosynthesis images were acquired. Tissue density: The breast tissue is heterogeneously dense. Findings: The breast tissue is heterogeneously dense. The dense tissue may obscure some lesions mammographically. Benign-appearing calcification noted. No suspicious mass, microcalcification or area of architectural distortion can be identified. From a mammographic standpoint, routine followup in one year would seem adequate. IMPRESSION: No suspicious change since the previous exams. Recommendation: 1: Routine Screening Bilateral in 1 Year Assessment: ACR BI-RADS 2 - BENIGN FINDING(S) Ordered By: ONOFRE RUBIO Interpreted By: Christiano Almanzar MD, 02/10/2023 11:25 AM Onofre Rubio MD MAMMO Final R esult from Last 3 Months or Most Recently Relevant to Health Maintenance Insurance [facility] Care Teams Neurophysiological Technician Relationship Specialty Start Date End Date Onofre Rubio MD [address] [place] [address] PCP - General INTERNAL MEDICINE 03/16/19 Kirby Sandhu MD [address] [place] [address] NEUROLOGY 03/20/19 Fawad Swift MD [address] [place] [address] Referring Physician ORTHOPAEDIC SURGERY 03/20/19
--- OUTSIDE RECORDS SUMMARY | 2025-02-11 11:43 | XMS_ITS | Encounter Summary ---
Author Organization [facility] Address [facility] [place] [address] Care Team Providers Care Manager Skilled Name Role Phone Onofre Rubio MD Primary Care Provider Kirby Sandhu MD Unavailable [phone] Fawad Swift MD Unavailable [phone] Encounter Details Date Type Department Care Team (Late st Contact Info) Description 03/20/2019 Prep for Procedure [facility] [place] [address] Saloni Ba, COLORING ROOM WORKER [address] [place] [address] Anesthesia Record Procedure Summary Procedure Name Responsible Anesthesiologist Anesthesia Start Time Anesthesia Stop Time OPEN REDUCTION INTERNAL FIXATION OF RIGHT BIMALLEOLAR FRACTURE (Right: Ankle) Shruthi Gonzales MD 03/21/19 0751 03/21/19 0919 Events Date Time Event Comment 03/21/2019 0657 AN POLICE LIEUTENANT PATROL Prepped 0706 0706 AN Anesthesia Prepped 0751 An Start Data 0751 An Start Patient ID and consent checked and patient reassessed. 0753 Preoxygenation 0755 An Induction 0757 An LMA 0800 Anesthesia Ready 0811 An Tourn Inflated [id number] 0906 An Tourn Deflated 0908 LMA Removed 0908 Face Mask Applied 0912 An Emergence 0918 Post Anesthetic Care Handoff I completed my handoff to the receiving nurse during which we: 1. Identified the patient 2. Identified the responsible provider 3. Reviewed the pertinent medical history 4. Discussed the surgical course 5. Reviewed intra-op anesthesia management and issues during anesthesia 6. Set expectations for post-procedure period 7. Allowed opportunity for questions and acknowledgement of understanding. 918 An Stop 918 an stop data Meds * Agents No agents on file. * Blood No blood administrations on file. Lines, Drains, and Airways Type Details Placement Removal Peripheral IV Placement Date: 10/01; Placement Time: 0700; Size: 20 G; Orientation: Right; Location: Hand; Site Prep: Chlorhexidine; Inserted By: kristopher hearn; Insertion attempts: 1 (2 previous attempts by this rn); Patient Tolerance: Tolerated well; Removal Date: 03/21/19; Removal Time: 1253; Removal Reason: Patient Discharged 03/21/19 0700 by Divya Rodriguez RN 03/21/19 1253 by Carly Regan RN Supraglottic Airway Placement Date: 10/01; Placement Time: 0757; Airway Device: LMA; LMA Size: 3; Placed Outside of This Facility?: No; Style: Other (igel); Insertion Attempts:1; Breath Sounds:Clear bilaterally, Equal bilaterally; Breath Sound:Clear; Placement Verified By: Capnography, Auscultation, Chest Rise; Extubation Assessment: Patient spontaneously breathing, Deep, Atraumatic, Deep breathes w/equal chest movements; Removal Date: 03/21/19; Removal Time: 0908; Removal Person: POLICE LIEUTENANT PATROL; Removal Reason: End of Case 03/21/19 0757 by Brad Blanco CRNA 03/21/19 0908 by Brad Blanco CRNA Surgical/Incision 03/21/19; 0904; Surg ical Wound; Ankle; Right; DRESSING XEROFORM 1X8, DRESSING SPONGE MEDLINE 4X4, DRESSING WEBRIL 4 (x2), DRESSING WEBRIL 4; incision:young,xeroform ,4x4,webril,splint,webril ,sheryl wrap ; 03/21/19 (discharged home); 1245 03/21/19 0904 by Álvaro Jhaveri RN 03/21/19 1245 by Carly Regan RN documented in this encounter Social History Tobacco Use Types Packs/Day Years Used Date Smoking Tobacco: Never Cigarettes Smokeless Tobacco: Never Comments:tried cigarettes du [employer] Alcohol Use Standard Drinks/Week Comments Yes 1 (1 standard drink = 0.6 oz pure alcohol) occasional, 3 drinks a month on average Comments No Sex and Gender Information Value Date Recorded Sex Assigned at Not on file Legal Sex Female 7:54 PM CDT Gender Identity Not on file Sexual Orientation Not on file documented as of this encounter Plan of Treatment Not on file documented as of this encounter Visit Diagnoses Diagnosis Preop examination- Primary Preoperative examination, unspecified documented in this encounter Additional Health Concerns Infection Onset Date Last Indicated Resolved Time COVID-19 Rule Out 12/28/2022 12/28/2022 12/28/2022 11:06 AM CDT COVID-19 Rule Out 02/25/2023 02/25/2023 02/25/2023 11:00 AM MICROFABRICATION ENGINEER MANAGER COVID-19 Confirmed 02/25/2023 02/25/2023 12:32 AM MICROFABRICATION ENGINEER MANAGER COVID-19 Rule Out 04/24/2024 04/24/2024 04/24/2024 12:50 PM MICROFABRICATION ENGINEER MANAGER Influenza - Seasonal 04/24/2024 04/24/2024 025 12:32 AM MICROFABRICATION ENGINEER MANAGER Respiratory Rule Out 05/31/2024 05/31/2024 025 1:04 PM CDT Respiratory Rule Out 06/29/2024 06/29/2024 025 9:39 AM CDT Respiratory Rule Out 08/02/2024 08/02/2024 025 7:27 AM CDT Respiratory Rule Out 11/14/2024 11/14/2024 025 8:59 AM CDT documented as of this encounter Care Teams Manager Skilled Relationship Specialty Start Date End Date Onofre Rubio MD [address] [address] PCP - General INTERNAL MEDICINE 03/16/19 Kirby Sandhu MD [address] [address] NEUROLOGY 03/20/19 Fawad Swift MD [address] [facility] [address] [place] [address] Referring Physician ORTHOPAEDIC SURGERY 03/20/19 documented as of this encounter
--- OUTSIDE RECORDS SUMMARY | 2025-02-11 11:43 | XMS_ITS | Encounter Summary ---
Author Organization [facility] Address [address] [place] [address] Care Team Providers Care Supervisor Paste Mixing Name Role Phone Onofre Rubio MD Primary Care Provider Kirby Sandhu MD Unavailable [phone] Fawad Swift MD Unavailable [phone] Encounter Details Date Type Department Care Team (Late st Contact Info) Description 05/06/2017 Abstract [facility] CONVERSION [address] [place] [address] , Generic Conversion, Social History Tobacco Use Types Packs/Day Years Used Date Smoking Tobacco: Never Assessed Comments Unknown Sex and Gender Information Value Date Recorded Sex Assigned at Not on file Legal Sex Female 7:54 PM CDT Gender Identity Not on file Sexual Orientation Not on file documented as of this encounter Plan of Treatment Not on file documented as of this encounter Visit Diagnoses Not on filedocumented in this encounter Additional Health Concerns Infection Onset Date Last Indicated Resolved Time COVID-19 Rule Out 12/28/2022 12/28/2022 12/28/2022 11:06 AM CDT COVID-19 Rule Out 02/25/2023 02/25/2023 02/25/2023 11:00 AM [facility] COVID-19 Confirmed 02/25/2023 02/25/2023 12:32 AM [facility] COVID-19 Rule Out 04/24/2024 04/24/2024 04/24/2024 12:50 PM [facility] Influenza - Seasonal 04/24/2024 04/24/2024 025 12:32 AM [facility] Respiratory Rule Out 05/31/2024 05/31/2024 025 1:04 PM CDT Respiratory Rule Out 06/29/2024 06/29/2024 025 9:39 AM CDT Respiratory Rule Out 08/02/2024 08/02/2024 025 7:27 AM CDT Respiratory Rule Out 11/14/2024 11/14/2024 025 8:59 AM CDT documented as of this encounter Care Teams Supervisor Paste Mixing Relationship Specialty Start Date End Date Onofre Rubio MD [address] [facility] [address] [place] [address] PCP - General INTERNAL MEDICINE 03/16/19 Kirby Sandhu MD [address] [facility] [address] [address] [place] [address] NEUROLOGY 03/20/19 Fawad Swift MD [address] [facility] [address] [place] [address] Referring Physician ORTHOPAEDIC SURGERY 03/20/19 documented as of this encounter
--- OUTSIDE RECORDS SUMMARY | 2025-02-11 11:43 | XMS_ITS | Clinical Summary ---
Author Organization [facility] Address [address] [place] [address] Care Team Providers Care Tool Repair Technician Name Role Phone Clara Rubio MD Primary Care Provide r Allergies Active Allergy Reactions Criticality Noted Date Comments Nitrofurantoin Monohyd/M-Cryst Other (See comments) Low 02/07/2014 Cefixime Hives Medium 02/07/2014 Medications No known medications Active Problems Problem Noted Date Diagnosed Date Elevated bilirubin 09/21/2024 Assessment & Plan (09/21/2024 11:38 AM CDT): Patient with elevated tbili, ranging from normal to 1.7. I suspect this is Gilbert's. I will obtain direct bilirubin to evaluate further. Also ordered serology workup to rule out other causes of chronic liver disease. If this is Gilbert's, I explained that it typically does not cause any symptoms. If it does, the most common symptom is jaundice. In people with Gilbert syndrome, jaundice can be triggered by a fever, physical effort such as hard exercise, stress, or not eating. Gilbert syndrome does not need treatment. Hepatic steatosis 09/21/2024 Assessment & Plan (09/21/2024 11:43 AM CDT): Most recent CT 06/2024 and US 04/2022 showed fatty infiltration. I will obtain FibroScan today to evaluate further. Depending on results, she may need MRI and/or liver biopsy. She is of normal weight, does not have anything to lose even if steatosis is noted. 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 About 7-20% of individuals with MASLD have a normal BMI and these patients may have normal liver enzymes. Etiologies include genetic predisposition (patient has uncles with MASH cirrhosis). Lean NAFLD is associated with increased cardiovascular and liver-related morbidity compared to the general population, even in the absence of obesity or abnormal liver function tests. She is not taking any medications or using alcohol. Complete serology workup and FibroScan to be completed. She will return to clinic in 1 year. Peripheral polyneuropathy 06/01/2018 Paroxysmal dystonia 02/07/2014 Assessment & Plan (11/18/2022 5:21 PM CDT): Ms. Obregon is a 42 y/o woman with paroxysmal non-kinesogenic non-familial dystonia. Her dystonia is overall well-controlled with only 3 episodes 15-20 minutes each in the last year on lamotrigine 150 mg tablet daily. She is satisfied with the current level of symptoms control and does not have side effects to the lamotrigine. Recommendations: - continue lamotrigine 150 mg tablet daily - follow-up in 2 years Visit started 4:50 PM and ended 5:25 PM Natalia Claire MD Movement Neurology Fellow [facility] [place] Assessment & Plan (06/18/2021 6:38 PM CDT): Ms. Obregon has paroxysmal dystonia that has responded well to lamotrigine. She continues to have occasional minor episodes every 3-4 months that are not too bothersome to her and rare larger episodes (typically in the setting of major stressors). She is tolerating lamotrigine well without any problematic side- effects. Previous trials of carbamazepine, clonazepam, and gabapentin were less effective. Today she described symptoms consistent with Raynaud's phenomenon, which her father also had. We advised conservative management by avoiding cold temperatures as able and wearing gloves. She also described frequent episodes of feeling very cold after eating. This could be a sign of dysautonomia, and we will continue to monitor for other signs of autonomic dysfunction at future visits. Recommendations: -continue lamotrigine 150mg daily Assessment & Plan (01/03/2020 6:45 PM CDT): Ms. Obregon has paroxysmal dystonia that has responded well with the introduction and increase of lamotrigine. She has tolerated this well and is satisfied with the treatment of her spells. Longer, more severe spells of face and jaw dystonia are now infrequent and have also decreased in intensity. She has had no side effects of lamotrigine. Recommendations: - continue lamotrigine at current dose - follow up in 1 year Encounters Date Type Department Care Team Description 01/29/2025 Telephone [facility] [address] [place] [address] [place] [id number] Isatu Chavez, GRISELDA 12/15/2024 Telephone [facility] [address] [place] [address] [place] [address] Devora Sarabia Labs due late December to late January from Last 3 Months Medical History Medical History Date Comments Paroxysmal dystonia 1999 Kidney stone Social History Tobacco Use Types Packs/Day Years Used Date Smoking Tobacco: Former Tobacco Cessation:Counseling Given: Not Answered Comments No Sex and Gender Information Value Date Recorded Sex Assigned at Not on file 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 Gender Identity Not on file Sexual Orientation Not on file Last Filed Vital Signs Vital Sign Reading Time Taken Comments Blood Pressure 131/76 09/21/2024 9:53 AM CDT Pulse 53 09/21/2024 9:53 AM CDT Temperature 36.7 C (98.1 F) 12/29/2017 9:20 AM CDT Respiratory Rate 18 12/29/2017 9:20 AM CDT Oxygen Saturation 97% 12/29/2017 4:25 PM CDT Inhaled Oxygen Concentration - - Weight 68.1 kg (150 lb 3.2 oz) 09/21/2024 9:53 A M CDT Height 165.1 cm (5' 5) 09/21/2024 9:53 AM CDT Body Mass Index 24.99 09/21/2024 9:53 AM CDT Plan of Treatment Scheduled Procedures Name Priority Associated Diagnoses Date/Ti me COLONOSCOPY Open Access Encounter for screening colonoscopy Health Maintenance Due Date Last Done Comments Cervical Cancer Screening 1978 Colon Cancer Screening-Colonoscopy 1978 Depression Screening 1978 DTaP/Tdap/Td Vaccine (1 - Tdap) 1989 Regular Well Visit/Exam 18-64 1996 Pneumococcal vaccine <65 (1 of 2 - PCV) 1997 Breast Cancer Screening-Mammogram 02/10/2024 02/09/2023, 02/09/2023, 06/19/2021, Additional history exists Covid-19 Vaccine ( - 2024- season) 2024 02/18/2021, 06/10/2020, 05/10/2020 Influenza Vaccine (#1) 2024 , 12/09/2019, 12/15/2016, Additional history exists Hepatitis B Screening Completed 09/21/2024 Hepatitis C Screening Completed 09/21/2024 HPV Vaccines Aged Out No longer eligi ble based on patient's age to complete this topic Procedures Procedure Name Priority Date/Time Associated Diagnosis Comments HEPATITIS C ANTIBODY Routine 09/21/2024 11:01 AM CDT Elevated bilirubin from Last 3 Months or Most Recently Relevant to Health Maintenance Results * Hepatitis C antibody Blood (09/21/2024 11:01 AM CDT) Hep C Ab Nonreactive Nonreactive Comment:Antibodies to HCV no t detected. Does NOT exclude the possibility of recent exposure to HCV. Current interpretive data was last revised on 21 Blood 09/21/2024 11:0 1 AM CDT 09/21/2024 11:48 AM CDT Isatu Chavez CORPORATE TRAVEL AGENT LAB MICROBIOLOGY - GENER AL ORDERABLES Final Result [facility] [address] [facility] [place] [address] from Last 3 Months or Most Recently Relevant to Health Maintenance Insurance [facility] CHOICE [employer]US [facility] HMO/PPO Address: [address] [address] [place] [address] [id number] Care Teams Tool Repair Technician Relationship Specialty Start Date End Date Clara Rubio MD [address] [facility] [address] [place] [address] PCP - General Internal Medicine 05/25/18
--- OUTSIDE RECORDS SUMMARY | 2025-02-11 11:43 | XMS_ITS | Continuity of Care Document ---
Author Organization [facility], [facility] [place] [email or web address] [place] [address] Care Team Providers Care Small Parts Assembler Name Role Phone CAROLINA PEGUERO Orthopedic Surgeon ONOFRE RUBIO Primary Care Provider [phone] NOAH LYNN Tax Audit Manager Assessment Encounter Date Assessment Date Assessment LastModified by Organization Details LastModified Time 01/31/2025 01/31/2025 04/11/2022: Yohan ER CMP: Bili T 1.5H CBC: WNL CT Head: Neg 06/30/2022: Gluc 104 A1C 5.0 12/10/2022: Lipids: WNL TSH/VIT D: WNL 06/21/2023: LDL 111 VIT D 28 Bili T 1.7 12/23/2023: Stable 06/29/2024: Gluc 102, T bili 1.3H 07/10/2024: LDL 99 WBC 3.69 09/21/2024: On phone: GI CMP/CBC/Cerru loplasmin/A1A T 01/25/2025: Halpren Cr 1.12, T bili 1.4, GFR 61 WBC 4.18 Not available 01/31/2025 18:03:50 Plan of Treatment Reminders Order Date Submit Date Provider Last Modified By Organization Details Last Modified Time Details Appointments Follow Up 15 2025 02:00P Patrice rodrigues MD Not available Not available Not available Lab lipid panel, serum [email or web address] [place] [address] (Lab), [address] [place] [address], [id number], 02/05/2025 09:10:50 TSH + free T4, serum [address] (Lab), [address] [place] [address], [id number], 02/05/2025 09:10:50 CBC w/ auto diff [address] (Lab), [address] [place] [address], [id number], 02/05/2025 09:10:50 CMP, serum or plasma [address] (Lab), [address] [place] [address], [id number], 02/05/2025 09:10:50 T4, free, serum [address] (Lab), [address] [place] [address], [id number], 02/05/2025 09:10:51 TSH, serum or plasma [address] (Lab), [address] [place] [address], [id number], 02/05/2025 09:10:51 vitamin D, 25-hydrox y, total, serum [address] (Lab), [address] [place] [address], [id number], 02/05/2025 09:10:50 Referral gynecolog ist referral - Please call patient to schedule an appointme nt. Thank you. 2024 [email or web address] Sujit Kirby MD, [address] [facility] [address], [place], [address], 02/01/2025 16:49:56 rheumatol ogist referral [address] [email or web address] [id number] Gemma Khan MD, [address], [facility] [address], [place], [address], 02/01/2025 16:49:38 hematolog ist referral - Please call patient to schedule. 2024 ARIS Schuler MD, [address], [place], [address], 02/01/2025 18:05:25 Procedures None recorded. Surgeries None recorded. Imaging MAMMO, screening , digital, bilateral - Please call patient to schedule. [address] ([employer]), [address] [place], [address], 02/05/2025 10:56:18 Medication Orders Medrol (Eduar) 4 mg tablets in a dose pack 2024 [place] [id number], [address] [place], [place], [id number], 01/31/2025 17:56:09 Patient TargetsNo targets recorded. Patient InstructionsNo instructions recorded. Reason for Referral Fish And Wildlife Biologist Referral for Anti-nuclear factor detected Referring Physician: Onofre Rubio, Internal Medicine, Encounter Date: 01/31/2025 Drapery Rod Assembler Referral for Gy necologic examination Please call patient to schedule an appointment. Thank you. Referring Physician: Onofre Rubio Internal Medicine, Encounter Date: 01/31/2025 Relay Mechanic Referral for Le ukopenia Please call patient to schedule. Referring Physician: Onofre Rubio Internal Medicine, Encounter Date: 01/31/2025 Problems Name Problem SNOMED Code Status Onset Date Resolution Date Notes Provider Name and Address Organization Details Recorded Time Dystonia 19850235 Active Not Available [facility] 3 06:14:43 Sinusitis 72890165 Active Not Available [facility] 3 06:14:43 Fatigue 54299509 Active Not Available [facility] 3 06:14:43 Pain of left shoulder joint 2426999495950 9109 Active 2021 Not Available [facility] 3 06:14:43 Acute urinary tract infection 403970129 Active 2022 Not Available [facility] 3 06:14:43 Non-alcoho lic fatty liver 589810849 Active 2022 Not Available [facility] 3 06:14:43 Gallstone 670598082 Active 2022 Not Available [facility] 3 06:14:43 Cholelithi asis without obstructio n 04909838 Active 2022 Stuart soto MD [address], [address], [place], [address] , [facility] [employer] [facility] [employer] [facility] 3 14:12:08 Upper respirator y infection 46919797 Active 2022 Katia art, [place] [employer] [facility] [employer] [facility] 3 11:44:10 Paroxysmal dystonia 109336812 Active 2022 Onofre suero MD [address], [address], [place], [address] , [facility] [employer] [facility] [employer] [facility] 3 10:53:57 Asthma 405782221 Active 2022 Onofre suero MD [address], [address], [place], [address] , [facility] [employer] [facility] [employer] [facility] 3 10:54:00 COVID-19 312141824 Active 2022 Onofre suero MD [address], [address], [place], [address] , [facility] [employer] [facility] [employer] [facility] 3 10:54:06 Hyperbilir ubinemia 51278611 Active 2022 Onofre suero MD [address], [address], [place], [address] , [facility] 3 10:54:16 Vitamin D deficiency 84402904 Active 2022 Onofre suero MD [address], [address], [place], [address] , [facility] 3 10:54:27 Hyperlipid emia 19749789 Active 2022 Onofre suero MD [address], [address], [place], [address] , [facility] - [facility] 3 10:55:44 Skin symptom change 144448973 Active 2022 Katia Mcbride null, [place] [facility] 3 14:50:41 Skin lesion 40721704 Active 2022 Onofre suero MD [address], [address], [place], [address] , [facility] - [facility] 3 17:52:59 Dermoid cyst 846002716 Active 2022 Stuart soto MD [address], [address], [place], [address] , [facility] 3 13:41:31 Pain of left knee region 2913330561549 09 Active 2023 Silvia Fitch MA null, [place] [facility] 4 14:46:07 Pain of left knee joint 4825834861493 07 Active 2023 Onofre suero MD [address], [address], [place], [address] , [facility] - [facility] 4 16:55:01 Cyst of skin 542995257 Active 2024 Onofre suero MD [address], [address], [place], [address] , [place] [facility] 5 12:37:57 Steatotic liver disease 961726576 Active 2024 Onofre suero MD [address], [address], [place], [address] , [place] [facility] 5 12:40:07 Epidermoid cyst of skin 697858818 Active 2024 Stuart soto MD [address], [address], [place], [address] , [place] [facility] 5 15:23:24 Leukopenia 97701371 Active 2024 Onofre suero MD [address], [address], [place], [address] , [place] [facility] 5 17:43:33 Right lower quadrant pain 983564184 Active 2024 Onofre suero MD [address], [address], [place], [address] , [place] [facility] 5 17:58:53 Pain of bilateral hands 4311101265760 9109 Active 2024 Onofre suero MD [address], [address], [place], [address] , [place] [facility] 5 11:04:45 Pain of multiple joints 29296535 Active 2024 Onofre suero MD [address], [address], [place], [address] , [employer] [facility] 5 11:05:35 Anti-nucle ar factor detected 377577016 Active 2024 Onofre suero MD [address], [address], [place], [address] , [place] [facility] 5 17:46:11 Problem Notes None recorded. Procedures Surgical History Date Name Laterality Status Provider Name and Address Organization Details Recorded Time 07/05/19 25 Excision Cyst Multilayer completed Stuart Elizalde MD [address] [facility], [facility] [address], [place], [address], [facility] [employer] 07/04/2024 17:33:55 01/14/20 21 Hysterectomy completed Not Available [facility] 023 06:09:31 Ankle Surgery completed Not Available [facility] 05/13/2022 06:09:31 Tubal Ligation completed Not Available [facility] 05/13/2022 06:09:31 Knee Surgery [facility] 05/13/2022 06:09:31 Kidney Stones completed Not Available [facility] 05/13/2022 06:09:31 Imaging Results None recorded. Procedure Notes None recorded. Medical Equipment None Reported. Allergies Allergen ID Allergen Name Allergen Category Reaction Reaction Severity Criticality Documentation Date Start Date Code Code System Note Provider Name and Address Organization Details Recorded Time 20533 Suprax medicatio n Not available Not available Not available 05/13/2022 89957 9 RxNorm Not Available [facility] 3 06:20:34 57389 Macrobid medicatio n Not available Not available Not available 05/13/2022 44423 1 RxNorm Not Available [facility] 3 06:20:34 18857 Adhesive agent (substanc e) environme nt,medica tion rash Not available low 01/26/20252019 17789 0007 SNOMED Plast ic tape cause s rashe s, tabatha ates paper tape okay Not Available dio - External Data Service - prod 12:59:45 87702 doxycycli ne Not available Not available Not available high 01/26/20252024 3640 RxNorm unrec ogniz ed react ion (text : GI Upset , code: 67881 [id number]) (from exter nal sourc e) Not Available dio - External Data Service - prod 12:59:45 37754 nitrofura ntoin medicatio n arthralgi a (joint pain) Not available Not available 01/26/20252019 7454 RxNorm Not Available dio - External Data Service - prod 12:59:45 30166 nitrofura ntoin, macrocrys tals / nitrofura ntoin, monohydra te medicatio n other Not available low 01/26/20252013 34636 2 RxNorm Not Available dio - External Data Service - prod 13:03:22 14076 cefixime medicatio n hives Not available high 01/26/20252013 97814 RxNorm Not Available dio [employer] External Data Service - prod 13:03:22 Medications Name Sig Start Date Stop Date Status Note LastModified by Organization Details LastModified Time amoxicilli n 500 mg capsule Take 1 capsule 3 times a day by oral route for 7 days. 01/07 completed Not Available Not Available Not Available medroxypro gesterone 10 mg tablet TAKE 1 TABLET BY MOUTH DAILY FOR 10 DAYS 12/04 completed Not Available Not Available Not Available lamotrigin e 150 mg tablet Take 1 tablet every day by oral route. 06/22 completed taking 100mg 1 1/2 tb daily Not Available Not Available Not Available prednisone 10 mg tablet TAKE 1 TABLET TWICE DAILY FOR 3 DAYS THEN 1 TABLET DAILY 07/03 completed Not Available Not Available Not Available doxycyclin e hyclate 100 mg capsule TAKE 1 CAPSULE BY MOUTH TWICE DAILY WITH FOOD FOR 10 DAYS. MAY CAUSE SUN SENSITIV ITY 07/03 completed Not Available Not Available Not Available azithromyc in 250 mg tablet TAKE 2 TABLETS BY MOUTH FOR 1 DAY THEN TAKE 1 TABLET BY MOUTH DAILY FOR 4 DAYS 07/03 completed Not Available Not Available Not Available ibuprofen 800 mg tablet active Not Available Not Available Not Available hydrocodon e 5 mg-acetami nophen 325 mg tablet 01/07 completed Not Available Not Available Not Available prochlorpe razine maleate 5 mg tablet TAKE 1 TABLET BY MOUTH EVERY 8 HOURS NEEDED FOR HEADACHE 04/20 completed Not Available Not Available Not Available metronidaz ole 0.75 % (37.5 mg/5 gram) vaginal gel active Not Available Not Available Not Available ondansetro n HCl 4 mg tablet active Not Available Not Available Not Available Medrol (Eduar) 4 mg tablets in a dose pack use as directed 2024 active Not Available Not Available Not Avai lable clonazepam 0.5 mg tablet TK ONE T PO ONE TO TWO TIMES D PRN 01/07 completed Not Available Not Available Not Available metronidaz ole 500 mg tablet TAKE 1 TABLET BY MOUTH EVERY 12 HOURS 06/04 completed Not Available Not Available Not Available acetaminop hen 300 mg-codeine 30 mg tablet TAKE 1-2 TABLETS BY MOUTH EVERY 4-6 HOURS NEEDED 06/04 completed Not Available Not Available Not Available fexofenadi ne 180 mg tablet TK 1 TABLET PO QD 12/22 completed Not Available Not Available Not Available ciprofloxa chaz 500 mg tablet TAKE 1 TABLET BY MOUTH TWICE DAILY FOR 10 DAYS 01/29 completed Not Available Not Available Not Available sulfametho xazole 800 mg-trimeth oprim 160 mg tablet TAKE 1 TABLET BY MOUTH TWICE DAILY FOR 10 DAYS 10/18 completed Not Available Not Available Not Available hydrocodon e 10 mg-acetami nophen 325 mg tablet 01/07 completed Not Available Not Available Not Available acetaminop hen 500 mg tablet TAKE 1 TABLET BY MOUTH EVERY 6 HOURS NEEDED FOR PAIN 06/04 completed Not Available Not Available Not Available lamotrigin e 25 mg tablet 01/07 completed Not Available Not Available Not Available ketorolac 10 mg tablet TAKE 1 TABLET BY MOUTH EVERY 6 HOURS FOR 5 DAYS 04/20 completed Not Available Not Available Not Available cefadroxil 500 mg capsule 01/07 completed Not Available Not Available Not Available meloxicam 7.5 mg tablet Take 1 tablet twice a day by oral route as needed for 15 days. active Not Available Not Available No t Available oxycodone- acetaminop hen 5 mg-325 mg tablet TAKE 1 TABLET BY MOUTH EVERY 6 HOURS NEEDED PAIIN 06/04 completed Not Available Not Available Not Available terbinafin e HCl 250 mg tablet TAKE 1 TABLET BY MOUTH DAILY 07/03 completed Not Available Not Available Not Available amoxicilli n 875 mg tablet TAKE 1 TABLET BY MOUTH EVERY 12 HOURS FOR 10 DAYS 10/15 completed Not Available Not Available Not Available dicyclomin e 20 mg tablet 06/22 completed Not Available Not Available Not Available benzonatat e 100 mg capsule TK 1 C PO BID PRN FOR 10 DAYS 01/07 completed Not Available Not Available Not Available prednisone 50 mg tablet TAKE 1 TABLET BY MOUTH DAILY 10/13 completed Not Available Not Available Not Available gabapentin 300 mg capsule TAKE 1 TO 2 CAPSULES BY MOUTH EVERY DAY AT BEDTIME 12/04 completed Not Available Not Available Not Available acetaminop hen 300 mg-codeine 60 mg tablet TK 1 T PO Q 6 H PRN P 01/07 completed Not Available Not Available Not Available mupirocin 2 % topical ointment APPLY TOPICALL Y TO THE AFFECTED AREA THREE TIMES DAILY FOR 7 DAYS 04/20 completed Not Available Not Available Not Available Low-Ogestr el (28) 0.3 mg-30 mcg tablet 01/07 completed Not Available Not Available Not Available alprazolam 2 mg tablet active Not Available Not Available Not Available gabapentin 100 mg capsule active Not Available Not Available Not Available ibuprofen 600 mg tablet TAKE 1 TABLET BY MOUTH EVERY 6 HOURS NEEDED FOR PAIN 06/04 completed Not Available Not Available Not Available oxycodone- acetaminop hen 7.5 mg-325 mg tablet active Not Available Not Available Not Available levofloxac in 750 mg tablet TK 1 T PO D FOR 7 DAYS 01/07 completed Not Available Not Available Not Available albuterol sulfate HFA 90 mcg/actuat ion aerosol inhaler INL 2 PFS PO Q 4 H PRN active Not Available Not Available No t Available ketoconazo le 2 % topical cream 12/22 completed Not Available Not Available Not Available ondansetro n 4 mg disintegra ting tablet 01/07 completed Not Available Not Available Not Available fluticason e propionate 50 mcg/actuat ion nasal spray,susp ension INSTILL 1 SPRAY IN EACH NOSTRIL D 01/07 completed Not Available Not Available Not Available medroxypro gesterone 150 mg/mL intramuscu lar suspension 01/07 completed Not Available Not Available Not Available lamotrigin e 100 mg tablet TAKE 1 AND 1/2 TABLETS BY MOUTH DAILY 07/03 completed Not Available Not Available Not Available loratadine 10 mg tablet TK 1 T PO D PRN 01/07 completed Not Available Not Available Not Available diazepam 5 mg tablet 01/07 completed Not Available Not Available Not Available amoxicilli n 875 mg-potassi um clavulanat e 125 mg tablet TAKE 1 TABLET BY MOUTH EVERY 12 HOURS 12/23 completed Not Available Not Available Not Available ibuprofen 200mg 2 in AM 1 in PM 07/03 completed Not Available Not Available Not Available gabapentin 12/[address] Reese 021, f/u in 3 months Not Available Not Available Not Available multivitam in 07/03 completed Not Available Not Available Not Available fenofibrat e nanocrysta llized 145 mg tablet Take 1 tablet every day by oral route for 90 days. active Not Available Not Available No t Available cholecalci ferol (vitamin D3) 1,250 mcg (50,000 unit) capsule TAKE 1 CAPSULE BY MOUTH EVERY 7 DAYS 09/21 completed Not Available Not Available Not Available Stimulant Laxative Plus 8.6 mg-50 mg tablet TAKE 1 TABLET BY MOUTH AT BEDTIME 06/04 completed Not Available Not Available Not Available Xulane 150 mcg-35 mcg/24 hr transderma l patch 12/22 completed Not Available Not Available Not Available Fluzone 5305-7193 (PF) 45 mcg (15 mcg x 3)/0.5 mL IM syringe TO BE ADMINIST ERED BY [employer] [facility] FOR IMMUNIZA TION active Not Available Not Available No t Available albuterol sulfate 90 mcg/actuat ion breath activated powder inhaler Inhale 2 puffs every 4 hours by inhalati on route as needed for 14 days. 12/22 completed phoned to pharm Not Available Not Available Not Available Glucosamin e Chondroiti n 07/03 completed Not Available Not Available Not Available BinaxNOW COVID-19 Ag Self Test kit TEST DIRECTED TODAY 10/13 completed Not Available Not Available Not Available Airsupra 90 mcg-80 mcg/actuat ion HFA aerosol inhaler INHALE 2 PUFFS BY MOUTH FOUR TIMES DAILY NEEDED 07/03 completed Not Available Not Available Not Available Vitals Date Recorded Body height Body mass index (BMI) Body weight Body temperature Pain severity - 0-10 verbal numeric rating [Score] - Reported Heart rate Oxygen saturation Systolic And Diastolic Provider Name and Address Organization Details Last Updated DateTime 5 165.1 cm 23.4 kg/m2 98412.7 3 g 98.2 [degF] 3 60 /min 99 % 130/84 mm[Hg] ETHAN Kapoor - [place] [employer] 5 17:06:30 Social History Question Answer Notes LastModified by Organizat ion Details LastModified Time Tobacco Smoking Status Former Smoker quit age 22 Not Available [facility] 05/13/2022 06:07:45 Do You Have An Advance Directive? No [id number] Information not available 05/13/2022 What Is Your Level Of Caffeine Consumption? Moderate MIGRATION.08127 02291 Information not available 05/13/2022 In The 14 Days Before Symptom Onset, Have You Had Close Contact With A Laboratory-confi rmed COVID-19 While That Case Was Ill? No MIGRATION.84479 [id number] Information not available 05/13/2022 In The 14 Days Before Symptom Onset, Have You Had Close Contact With A Person Who Is Under Investigation For COVID-19 While That Person Was Ill? No MIGRATION.97271 [id number] Information not available 05/13/2022 What Type Of Diet Are You Following? REGULAR MIGRATION.35657 [id number] Information not available 05/13/2022 What Is The Highest Grade Or Level Of School You Have Completed Or The Highest Degree You Have Received? [id number] MIGRATION.10196 82047 Information not available 05/13/2022 Have There Been Any Changes To Your Family Or Social Situation? No MIGRATION.78781 13717 Information not available 05/13/2022 What Is The Fluoride Status Of Your Home? Unknown MIGRATION.06629 72070 Information not available 05/13/2022 When Did You Quit Smoking? 16+yearssincelastc igarette MIGRATION.23952 23465 Information not available 05/13/2022 Are There Any Guns Present In Your Home? No MIGRATION.13208 07353 Information not available 05/13/2022 Do You Use Insect Repellent Routinely? Yes MIGRATION.51651 [id number] Information not available 05/13/2022 Where Do You Live? [facility] MIGRATION.67707 59724 Information not available 05/13/2022 Do You Have A Medical Power Of Otolaryngology Physician? No MIGRATION.05323 31534 Information not available 05/13/2022 What Was The Date Of Your Most Recent Tobacco Screening? 01/31/2025 Information not available 01/31/2025 Do You Have Any Pets? Yes MIGRATION.42978 78495 Information not available 05/13/2022 What Is Your Relationship Status? MIGRATION.44844 13048 Information not available 05/13/2022 Do You Use Your Seat Belt Or Car Seat Routinely? Yes MIGRATION.55148 07067 Information not available 05/13/2022 Do You Have Smoke And Carbon Monoxide Detectors In Your Home? Yes MIGRATION.78437 23415 Information not available 05/13/2022 Are You Passively Exposed To Smoke? No MIGRATION.42209 27683 Information not available 05/13/2022 Are There Any Smokers In Your House? No MIGRATION.93749 02926 Information not available 05/13/2022 What Types Of Sporting Activities Do You Participate In? None MIGRATION.50446 09020 Information not available 05/13/2022 Do You Use Sunscreen Routinely? Yes MIGRATION.99863 97062 Information not available 05/13/2022 Has Tobacco Cessation Counseling Been Provided? No MIGRATION.60685 11043 Information not available 05/13/2022 Have You Recently Traveled Abroad? No MIGRATION.50055 05540 Information not available 05/13/2022 Do You Have Any Dietary Restrictions? No MIGRATION.74602 30520 Information not available 05/13/2022 Sex: Female Functional Status Question Answer Note LastModified by Organizat ion Details LastModified Time Do you use any illicit or recreational drugs? No MIGRATION.468020 3447 Information not available 05/13/2022 Do you or have you ever used any other forms of tobacco or nicotine? No MIGRATION.625896 3223 Information not available 05/13/2022 What is your level of alcohol consumption? Occasional MIGRATION.752541 7874 Information not available 05/13/2022 Are you currently employed? 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 Moderate MIGRATION.005297 3930 Information not available 05/13/2022 Mental Status Question Answer Note LastModified by Organizat ion Details LastModified Time Do you feel stressed (tense, restless, nervous, or anxious, or unable to sleep at night)? [id number] [id number] Information not available 05/13/2022 Family History Relationship Description Onset Age of this Age Resolved Age Notes LastModified by Organization Details LastModified Time Father Heart disease [id number] Not available 05/13/2022 06:09:34 Father Pure hypercholest erolemia MIGRATION.370 [id number] Not available 05/13/2022 06:09:34 Father Leiomyosarco ma MIGRATION.820 [id number] Not available 05/13/2022 06:09:34 Father Cardiac pacemaker in situ MIGRATION.112 [id number] Not available 05/13/2022 06:09:34 Mother Benign essential hypertension MIGRATION.741 [id number] Not available 05/13/2022 06:09:34 Mother Carcinoma of female breast MIGRATION.053 [id number] Not available 05/13/2022 06:09:34 Mother Cholecystect carolann [id number] Not available 05/13 12:20:16 Medical History Condition Response NERVE DISEASE Y BLINDNESS N RHEUMATIC FEVER N KIDNEY STONES N BLADDER PROBLEMS N MRSA N OTHER # 1 N POLIO N LUNG DISEASE/DISORDER N HISTORY OF DRUG ABUSE N RADIATION / CHEMOTHERAPY N COPD N Other # 2 N BLOOD DISEASES Y EAR OR HEARING PROBLEMS N MUMPS N SHINGLES N BOWEL PROBLEMS N DEPRESSION (INCLUDING POST ) N STROKE/TIA N ULCERS N BENIGN PROSTATIC HYPERPLASIA N MEASLES N HYPOTENSION N MYOCARDIAL INFARCTION N OBESITY N GERD/NAUSEA N ANEURYSM N URINARY/BLADDER/KIDNEY PROBLEMS N CORONARY ARTERY DISEASE (CAD) N ADDICTION CONCERNS N ENDOMETRIOSIS N Impotence N USE OF BLOOD THINNERS N SKIN PROBLEMS N GASTROINTESTINAL DISORDER N PERIPHERAL VASCULAR DISEASE N MUSCLE,JOINT OR BONE PROBLEMS N GASTROINTESTINAL BLEEDING N BLOOD CLOTS N ASTHMA Y CATARACTS N ERECTILE DYSFUNCTION N VARICOSITIES N GI PROBLEMS N Low Testosterone N INFERTILITY N AIDS/HIV N CHEMOTHERAPY / RADIATION N LIVER DISEASE N MALE HYPOGONADISM N HYPERTENSION N Deficiency N TOURETTE'S N ANXIETY DISORDER N BLOOD TRANSFUSION N ANEMIA/BLOOD DISORDER N CHRONIC EAR INFECTIONS N BRONCHITIS N TUBERCULOSIS N GLAUCOMA N FOOT PROBLEM N DIVERTICULITIS N CHICKENPOX N SLEEP APNEA N INFECTIOUS DISEASE N HEART ARRHYTHMIA N PROSTATE N INSOMNIA N HIGH CHOLESTEROL / HYPERLIPIDEMIA Y HYPERTHYROIDISM N EYE PROBLEMS N EDEMA N CHRONIC PAIN SYNDROME N HYPOTHYROIDISM N CAROTID BLOCKAGE N CONSTIPATION N BACK / NECK PROBLEMS N ATHEROSCLEROSIS N BREAST PROBLEMS N DIALYSIS N ECZEMA N OSTEOPOROSIS N ARTHRITIS N APPENDICITIS N DIABETES, TYPE N BAD TEETH N ENT N HEARTBURN / REFLUX N AUTISM SPECTRUM DISORDER (ASD) N HEPATITIS / LIVER DISEASE N GOUT N SLEEP DISORDER N ALZHEIMER'S DISEASE N Brain Problems N HERPES N DEMENTIA N HEADACHES/MIGRAINES N SEIZURES/EPILEPSY N VASCULAR DISEASE N PACEMAKER N Blood Disorder N DIZZINESS N HEART DISEASE/HEART PROBLEMS Y KIDNEY DISEASE N MULTIPLE SCLEROSIS N CARDIAC ARRHYTHMIA N CANCER: SPECIFY N ATRIAL FIBRILLATION N Gall Stones N PULMONARY EMBOLISM N AUTOIMMUNE DISEASE N Gynecological History Statement/Question Response How many live births 3 Date of Last Colonoscopy Date of Last Mammogram Date of LMP Most Recent Bone Density Date of Last Pap Current Control Method Hysterectom y Obstetrics History GPAL:G 3 P 2 1 0 3 Type Value Multiple Births 0 Full Term 2 Induced 0 Spontaneous 0 Premature 1 Living 3 Ectopics 0 Total 3 Immunizations Vaccine Type Date Status Note Provider Nam e and Address Organization Details Recorded Time Influenza, split virus, quadrivalent, PF 6 completed Not Available [facility] 01/31/2025 16:49:52 COVID-19, mRNA, LNP-S, PF, 100 mcg/0.5mL dose or 50 mcg/0.25mL dose 1 completed Not Available [facility] 05/13/2022 06:20:17 COVID-19, mRNA, LNP-S, PF, 100 mcg/0.5mL dose or 50 mcg/0.25mL dose 1 completed Not Available [facility] 05/13/2022 06:20:17 COVID-19, mRNA, LNP-S, PF, 100 mcg/0.5mL dose or 50 mcg/0.25mL dose 1 completed Not Available [facility] 05/13/2022 06:20:17 Influenza, split virus, quadrivalent, preservative 0 completed Not Available [facility] 05/13/2022 06:20:17 influenza, unspecified formulation 7 completed Not Available [facility] 05/13/2022 06:20:17 Influenza, split virus, trivalent, PF 4 completed Not Available [facility] 05/13/2022 06:20:17 Past Encounters Encounter ID Performer Location Encounter Start Date Encounter Closed Date Diagnosis/Indication Diagnosis SNOMED-CT Code Diagnosis ICD10 Code Diagnosis IMO Codes Diagnosis Note [id number] Onofre suero MD [facility] [place] [address] [address] [facility] [address] [place] [id number] 01/31/2025 16:47:58 01/31/2025 18:08:32 Anti-nuclear factor detected 547241593 R76.89 [id number] Get a referral to rheumataruna Bruno on MDP for L> R hand pain and swellingRT C as scheduled with labs Pain of le ft knee joint 0572344645 52596 M25.562 MRI 12/29/[address] Peguero, was treated with steroid and it is better, as per her history 10/18/2024 Screening - NAD [id number] 3 Z13.9 C-scope: 03/17/2024 , Dr Orr, next in 10 years PAP: Dr. Logan, did see her, she is s/p hystrectom y Mammogram: ordered Get yearly flu shot, declined 01/10/2024 Do Tdap if not doneUTD on COVID 19 vaccine RTC in 3 months as per her wishesGo to the ER if any symptoms worsen!she did verbalize her understand ing of the above Paroxysmal dystonia 2303 46550 G24.[address] the neurologis t Dr Oakley n/Dr Sandhu Not on lamotrigin e 150mg daily Dr Sandhu , self stopped, no more apts as per her history 10/18/2024 but is going to do a televisit in 12/2024 Does well now Asthma 517075557 J45.90 9 Renewed airsupra 06/23/2023 Does well Hyperbilirubinemia 90212 006 E80.6 Repeat the labs, may need US abd US abd 05/08/2022 Did see G surgery and no surgery for GB, does well Pain of le ft shoulder joint [id number] 1230791 M25.512 Get xraysGet on meloxicam as neededIf not better may need to see orthoDr Amita 01/14/2022 Vitamin D deficiency 347 11841 E55.9 Repeat the vit d Hyperlipidemia 62681109 E78.5 OV 10/18/2024 :Declines any meds, wants to diet and exercise firstCBC/C MP done by her GI, get rest of labs Skin lesion 74403374 L98 .9 Small raised dark lesion on the back and a barely felt on the anterior mid chest Dr Barber 07/04/2024 , next 07/13/2024 Gynecologi c examination 70305525 Z01.419 Steatotic liver disease 039734707 K76.0 S/p CT A/P on 06/29/2024 Get a referral to Dr Marina RUFF as she does not want to go to [facility] or [facility] Has seen Silvia Chavez [facility] on 09/21/2024 and next in one year as per her historyUS fibroscan 09/21/2024 09/21/2024 : On phoneCMP/C BC/Cerrulo plasmin/A1 AT Leukopenia 90721372 D72. 819 Repeat the labs Right lowe r quadrant pain 151792650 R10.31 112656 S/p CT A/P 06/29/2024 Screening mammography 24 842022 Z12.31 [id number] Health Concerns Section Related Observation LastModified by Organization Detai ls LastModified Time None Recorded Concern Status LastModified by Organization Details LastModified Time None Recorded Payers Encounter Date Sequence Insurance Name Policy Number Policy Castillo Covered Member ID Castillo Member ID Guarantor Name 01/31/2025 1 [employer] [id number] Phoebe Obregon [id number] Phoebe Obregon Notes Date Note Type Note Provider Name and Address Organization Details Recorded Time 01/31/2025 text/html 12/22/16Here to establish carePast Hx:Paroxysmal Dystonia, at age 16 years, has seen a neurologist and sees Dr. Sharma, [facility] family and surgical historyHere as she states that she did have an episode of the dystonia, last night and went to a coughing fit, and that had blood in it and this is why she made this appointment, the coughing is resolved, feels a little discomfort in the chest from the coughing fitNo nausea or vomitingNo abdominal pain, no diarrhea, no blood in stool, no hematuria, is able to swallow and eat well, is hydrating well OV 01/14/17:She is having some UTI symptoms, but she did not take the antibiotic as her daughter had the same sx and she figured that it was just an 'irritant'. She states she has no sx today, no dysuria or hematuria, no abd pain, no diarrhea, no blood in stool, no fevers or chills, no N/V, no back pain.She also did see the neurologist for the dystoniaHas noted heart racing and noted to have elevated BP, last episode was yesterday, no presyncope, on syncope, no SOB, MAJANO, no headaches, no [employer] sx OV 01/27/17:Here for the BP issues, she has nt had any more palpitations or presyncope or syncope 04/12/17ACV:Here as she has had L arm numbness and weaknessShe is here with her mother, and states that this is a recurring issue from at least a yearShe states that she has been extensively worked up for a CVAShe states that the parasthesias noted on the arm begin in the shoulder and go thru her hand, she has noted that her fingers feels numb and that she is then unable to make a fistShe has noted that the episode began yesterday and it has improved somewhat today but she was concerned about it so decided to come in to the officeNo pain in the UE on the LShe is R HDNo acute or remote traumaNo rashNo shoulder elbow or hand swelling in the L UEShe does have some cold sensation on the L hand and feels that her hand does turn dark, she is worried about blood flow in the arm Today 06/14/17:ACV:Here with sinus and nasal congestion since a week+ve cough, non productiveHas hoarseness of the voice also+ve sinus headachesNo fevers or chillsNo N/V or diarrheaNo chest pain or SOBHas a mild ear ache on the L ear, no ear d/cNo rashNo joint swelling OV 01/08/2020;Here for her tele visitShe is agreeable to do the visitShe did do the labsNow has been diagnosed with COVID 19, c/o loss of smell and tastHer extensive ROS is otherwise negative OV 03/28/2020:Here for her routine apt and to discuss the discoloration of the thumb on the R handShe feels that it turns blue with cold weather, no painNo other symptoms, no tightening of the skin or difficulty eatingNo other rash or joint swellingNo new labs doneOV 12/04/2020:Here for her routine aptShe feels wellC/o some bruising but no overt bleedingShe did do labs on 11/30/2020OV 06/04/2021:Here for her routine aptShe is doing wellShe is here with her husbandShe did do the labsOV 10/13/2021:Here for her routine apt, she is doing very well, no recent labsC/o L shoulder pain, since 'months', was lifting weights, unable to hook on her bra strap, she is R HD, no N/T or weakness notedOV 04/20/2022:Here for her f/u apt, she is doing well, she did do the labs on 04/01/2022 OV 12/23/2022: Here for her f/u apt, she is doing well, has a mole that needs to get this seen today OV 06/23/2023: Here for her routine apt, she feels well, she did do the labs OV 09/22/2023: ACV: C/o L knee pain, s/p old injury and s/p ACL repair done when she was 16 years old, was in [facility] and had to walk for 2 days and she noted pain in the knee, went to an UC in [place], [place], did have an XrayHurts to walk or bend the knee, no N/T in the leg, mild swelling, no redness noted OV 01/10/2024: Here for her f/u apt, she is doing well today, she did do the labs, she has seen Dr Peguero and is on steroids and PT for the L knee pain, she has not yet done her C-scope OV 07/03/2024: Here for ACVNoted that there is a cyst on the mid chest wall, tender, was given bactrim by her dermatologistAlso has been to an UC and has had CT A/P and was told to discuss its liver report by her PCP, as she was told she had fatty liver and lesions in the liver OV 07/10/2024: Here to discuss her labs and also to get referral to GI, is here with her mother OV 10/18/2024: Here for her f/u apt, she is doing very well today, she did see her GI and did some labs via the GI office OV 01/31/2025: Here to discuss her +ve RAFAEL and pain and swelling in the L hand, she is RHD, has to keep her hand elevated otherwise it swells up Onofre Rubio MD [address] [facility], [facility] [address], [place], [address], [place] [facility] 01/31/2025 18:10:45 OBGyn Episode No OBEpisode recorded.
--- OUTSIDE RECORDS SUMMARY | 2025-02-11 11:43 | XMS_ITS | Data Portability ---
Author Organization [place] [facility], Main Office Address [address] [place] [address] Care Team Providers Care Gem Setter Name Role Phone RAVIN PEGUERO Orthopedic Surgeon ONOFRE RUBIO Primary Care Provider NOAH LYNN Coil Cleaner Assessment Encounter Date Assessment Date Assessment LastModified by Organization Details LastModified Time 07/04/2024 07/04/2024 Cyst of anterior chest wall. Removed today. F/u in 10-14 days for suture removal, sooner if concerns arise. Pt already on Bactrim per PCP. Not available 07/04/2024 17:34:20 07/10/2024 07/10/2024 04/11/2022: Yohan ER CMP: Bili T 1.5H CBC: WNL CT Head: Neg 06/30/2022: Gluc 104 A1C 5.0 12/10/2022: Lipids: WNL TSH/VIT D: WNL 06/21/2023: LDL 111 VIT D 28 Bili T 1.7 12/23/2023: Stable 06/29/2024: Gluc 102, T bili 1.3H 07/10/2024: LDL 99 WBC 3.69 Not available 07/10/2024 17:11:21 07/13/2024 07/13/2024 status post excision cyst chest wall. Doing very well. sutures removed. Follow up p.r.n. Not available 07/13/2024 10:37:05 10/18/2024 10/18/2024 04/11/2022: Yohan ER CMP: Bili T 1.5H CBC: WNL CT Head: Neg 06/30/2022: Gluc 104 A1C 5.0 12/10/2022: Lipids: WNL TSH/VIT D: WNL 06/21/2023: LDL 111 VIT D 28 Bili T 1.7 12/23/2023: Stable 06/29/2024: Gluc 102, T bili 1.3H 07/10/2024: LDL 99 WBC 3.69 09/21/2024: On phone: GI CMP/CBC/Cerru loplasmin/A1A T Not available 10/18/2024 10:55:47 01/31/2025 01/31/2025 04/11/2022: Yohan ER CMP: Bili [...] available Lab lipid panel, serum 2024 025 [email or web address] [facility] (Lab), [address] [place] [address], [id number], 02/05/2025 09:10:50 TSH + free T4, serum 2024 025 [facility] (Lab), [facility] [place], [address], 02/05/2025 09:10:50 CBC w/ auto diff [address] (Lab), [address] [place] [address], [address], 02/05/2025 09:10:50 CMP, serum or plasma [address] (Lab), [address] [place] [address], [address], 02/05/2025 09:10:50 T4, free, serum [address] (Lab), [address] [place] [address], [address], 02/05/2025 09:10:51 TSH, serum or plasma [address] [place] [address] (Lab), [address] [place] [address], [address], 02/05/2025 09:10:51 vitamin D, 25-hydrox y, total, serum [address] (Lab), [address] [place] [address], [address], 02/05/2025 09:10:50 vitamin D, 25-hydrox y, total, serum 2024 025 [email or web address] [facility] (Lab), [address] [place] [address], [address], 10/18/2024 17:49:55 C-reactiv e protein, quantitat antony, serum or plasma 2024 025 [email or web address] [facility] (Lab), [address] [place] [address], [address], 10/25/2024 10:42:11 erythrocy te sedimenta tion rate, QN, blood [address] (Lab), [address] [place] [address], [address], 10/25/2024 10:42:20 RAFAEL + rf (antinucl ear antibodie s + rheumatoi d factor), quantitat antony, serum 2024 025 [facility] (Lab), [address] [place] [address], [address], 11/02/2024 16:51:16 ccp (cyclic citrullin ated peptide) iga+igg, serum 2024 025 [facility] (Lab), [address] [place] [address], [address], 11/07/2024 14:16:29 sjogren antibody panel (ssa, ssb, ro, la), serum 2024 025 [facility] (Lab), [address] [place] [address], [address], 11/14/2024 17:03:18 lipid panel, serum 2024 025 [facility] (Lab), [address] [place] [address], [address], 10/18/2024 17:49:55 TSH + free T4, serum 2024 025 [facility] (Lab), [address] [place] [address], [address], 10/18/2024 17:49:55 vitamin D, 25-hydrox y, total, serum [address] (Lab), [address] [place] [address], [address], 01/08/2025 12:28:43 lipid panel, serum [address] (Lab), [address] [place] [address], [address], 01/08/2025 12:28:44 CMP, serum or plasma [address] (Lab), [address] [place] [address], [address], 01/08/2025 12:28:44 CBC w/ auto diff [address] (Lab), [address] [place] [address], [address], 01/08/2025 12:28:44 TSH + free T4, serum [address] (Lab), [address] [place] [address], [address], 01/08/2025 12:28:44 Referral gynecolog ist referral - Please call patient to schedule an appointme nt. Thank you. 2024 [email or web address] Sujit Kibry MD, [address] [facility] [address], [place], [address], 02/01/2025 16:49:56 rheumatol ogist referral 2024 [email or web address] Gemma Khan MD, [address], [address], [place], [address], 02/01/2025 16:49:38 hematolog ist referral - Please call patient to schedule. 2024 ARIS Schuler MD, [address], [place], [address], 02/01/2025 18:05:25 gynecolog ist referral - Please call patient to schedule an appointme nt. Thank you. 2024 025 Sujit Kirby MD, [address] [facility] [address], [address], [place], [address], 01/22/2025 18:33:59 orthopedi c surgeon referral - Please call patient to schedule an appointme nt. Thank you. 2024 025 [email or web address] Ravin Claudia, [address], [address], [place], [address], 01/08/2025 09:18:22 gynecolog ist referral - Please call patient to schedule an appointme nt. Thank you. 2024 025 [email or web address] Sujit Kirby MD, [address] [facility] [address], [address], [place], [address], 01/08/2025 09:23:55 hepatolog ist referral - Please call patient to schedule an appointme nt. Thank you. 2024 025 hilario Matt, [address] [place], [address], 10/09/2024 10:07:12 Procedures colonosco py screening (PROC) - Please call patient to schedule an appointme nt. Thank you. 2024 025 [email or web address] Lion Matt, [address] , [place], [address], 10/09/2024 08:50:31 Surgeries None recorded. Imaging MAMMO, screening , digital, bilateral - Please call patient to schedule. 2024 025 [facility] ([facility]), [address] [place], [address], 02/05/2025 10:56:18 MAMMO, screening , digital, bilateral - Please call patient to schedule. 2024 025 [facility] ([facility]), [address] [place], [address], 11/20/2024 18:36:27 Medication Orders Medrol (Eduar) 4 mg tablets in a dose pack 2024 025 [id number], [address], [place], [id number], 01/31/2025 17:56:09 Patient TargetsNo targets recorded. Patient InstructionsNo instructions recorded. Reason for Referral Orthopedic Surgeon Referral for Pain of left knee joint Please call patient to schedule an appointment. Thank you. Referring Physician: Onofre Rubio Internal Medicine, Encounter Date: 07/10/2024 Claims Service Representative Referral for Gy necologic examination Please call patient to schedule an appointment. Thank you. Referring Physician: Onofre Rubio Internal Medicine, Encounter Date: 07/10/2024 Public Health Outreach Worker Referral for St eatotic liver disease Please call patient to schedule an appointment. Thank you. Referring Physician: Onofre Rubio Internal Medicine, Encounter Date: 07/10/2024 Claims Service Representative Referral for Gy necologic examination Please call patient to schedule an appointment. Thank you. Referring Physician: Onofre Rubio Internal Medicine, Encounter Date: 10/18/2024 Public Services Assistant Referral for Anti-nuclear factor detected Referring Physician: Onofre Rubio Internal Medicine, Encounter Date: 01/31/2025 Claims Service Representative Referral for Gy necologic examination Please call patient to schedule an appointment. Thank you. Referring Physician: Onofre Rubio Internal Medicine, Encounter Date: 01/31/2025 Welt Slasher Referral for Le ukopenia Please call patient to schedule. Referring Physician: Kuldip [facility], Encounter Date: 01/31/2025 Results Created Date Observation Date Name Description Value Unit Range Abnormal Flag Note LastModifiedBy Organization Detail LastModifiedTime 06/30/19 25 06/29/2024 imagi ng/di agnos tic resul t No observ ation record ed. [facility] [id number] [facility], [place], [address], 06/29/2024 14:39:43 06/30/19 25 06/29/2024 imagi ng/di agnos tic resul t No observ ation record ed. [facility] [id number] [facility], [place], [address], 06/29/2024 16:26:00 06/30/19 25 06/29/2024 CT, abdom en + pelvi s, w/ contr ast No observ ation record ed. [email or web address] [facility] [id number] [place] [address], [place], [address], 07/04/2024 09:10:01 Result Notes None recorded. Problems Name Problem SNOMED Code Status Onset Date Resolution Date Notes Provider Name and Address Organization Details Recorded Time Dystonia 25579773 Active Not Available [facility] 3 06:14:43 Sinusitis 76301865 Active Not Available [facility] 3 06:14:43 Fatigue 80515437 Active Not Available [facility] 3 06:14:43 Pain of left shoulder joint 7447294101949 9109 Active 2021 Not Available [facility] 3 06:14:43 Acute urinary tract infection 299966474 Active 2022 Not Available [facility] 3 06:14:43 Non-alcoho lic fatty liver 854958454 Active 2022 Not Available [facility] 3 06:14:43 Gallstone 354392771 Active 2022 Not Available [facility] 3 06:14:43 Cholelithi asis without obstructio n 30069550 Active 2022 Stuart soto MD [address] [place] [address], [address], [place], [address] , [facility] 3 14:12:08 Upper respirator y infection 26891747 Active 2022 Katia art, [facility] 3 11:44:10 Paroxysmal dystonia 956494105 Active 2022 Onofre suero MD [address], [address], [place], [address] , [facility] 3 10:53:57 Asthma 586794385 Active 2022 Onofre suero MD [address], [place], [address] , [facility] 3 10:54:00 COVID-19 286675136 Active 2022 Onofre suero MD [address], [address], [place], [address] , [facility] 3 10:54:06 Hyperbilir ubinemia 74206015 Active 2022 Onofer suero MD [address], [address], [place], [address] , [facility] 3 10:54:16 Vitamin D deficiency 93520408 Active 2022 Onofre suero MD [address], [address], [place], [address] , [facility] 3 10:54:27 Hyperlipid emia 21260104 Active 2022 Onofre suero MD [address], [address], [place], [address] , [facility] 3 10:55:44 Skin symptom change 115746996 Active 2022 Katia art, [facility] 3 14:50:41 Skin lesion 07796301 Active 2022 Onofre suero MD [address], [address], [place], [address] , [facility] 3 17:52:59 Dermoid cyst 656558242 Active 2022 Stuart soto MD [address], [address], [place], [address] , [facility] 3 13:41:31 Pain of left knee region 5973636770844 09 Active 2023 Silvia Fitch MA [facility] [place] [facility] 4 14:46:07 Pain of left knee joint 3245390095243 07 Active 2023 Onofre suero MD [address], [address], [place], [address] , [facility] 4 16:55:01 Cyst of skin 923103647 Active 2024 Onofre suero MD [address], [address], [place], [address] , [facility] 5 12:37:57 Steatotic liver disease 957550889 Active 2024 Onofre suero MD [address], [address], [place], [address] , [facility] 5 12:40:07 Epidermoid cyst of skin 691859263 Active 2024 Stuart soto MD [address], [address], [place], [address] , [facility] 5 15:23:24 Leukopenia 97139846 Active 2024 Onofre suero MD [address], [address], [place], [address] , [facility] 5 17:43:33 Right lower quadrant pain 166403204 Active 2024 Onofre suero MD [address], [address], [place], [address] , [employer] [facility] [employer] [facility] 5 17:58:53 Pain of bilateral hands 8959153272468 9109 Active 2024 Onofre suero MD [address], [address], [place], [address] , [employer] [facility] [employer] [facility] 5 11:04:45 Pain of multiple joints 03107229 Active 2024 Onofre suero MD [address], [address], [place], [address] , [employer] [facility] [employer] [facility] 5 11:05:35 Anti-nucle ar factor detected 653621482 Active 2024 Onofre suero MD [address], [address], [place], [address] , [employer] [facility] 5 17:46:11 Problem Notes None recorded. Procedures Surgical History Date Name Laterality Status Provider Name and Address Organization Details Recorded Time 07/05/19 25 Excision Cyst Multilayer completed Stuart Elizalde MD [address], [address], [place], [address], [employer] [facility] [employer] [facility] 07/04/2024 17:33:55 01/14/20 21 Hysterectomy completed Not Available [facility] 023 06:09:31 Ankle Surgery completed Not Available [facility] 05/13/2022 06:09:31 Tubal Ligation completed Not Available [facility] 05/13/2022 06:09:31 Knee Surgery completed Not Available [facility] 05/13/2022 06:09:31 Kidney Stones completed Not Available [facility] 05/13/2022 06:09:31 Imaging Results None recorded. Procedure Notes None recorded. Medical Equipment None Reported. Allergies Allergen ID Allergen Name Allergen Category Reaction Reaction Severity Criticality Documentation Date Start Date Code Code System Note Provider Name and Address Organization Details Recorded Time 07569 Suprax medicatio n Not available Not available Not available 05/13/2022 22340 9 RxNorm Not Available [facility] 3 06:20:34 39021 Macrobid medicatio n Not available Not available Not available 05/13/2022 46298 1 RxNorm Not Available [facility] 3 06:20:34 54993 Adhesive agent (substanc e) environme nt,medica tion rash Not available low 01/26/20252019 63906 0007 SNOMED Plast ic tape cause s rashe s, tabatha ates paper tape okay Not Available [employer] - prod 5 12:59:45 70396 doxycycli ne Not available Not available Not available high 01/26/20252024 3640 RxNorm unrec ogniz ed react ion (text : GI Upset , code: 48008 5008) (from exter nal sourc e) Not Available [employer] [facility] 5 12:59:45 42989 nitrofura ntoin medicatio n arthralgi a (joint pain) Not available Not available 01/26/20252019 7454 RxNorm Not Available [employer] - prod 5 12:59:45 62980 nitrofura ntoin, macrocrys tals / nitrofura ntoin, monohydra te medicatio n other Not available low 01/26/20252013 66536 2 RxNorm Not Available [employer] [facility] 5 13:03:22 80453 cefixime medicatio n hives Not available high 01/26/20252013 38067 RxNorm Not Available [employer] [facility] [employer] 5 13:03:22 Medications Name Sig Start Date Stop [...] Not Available Not Available Not Available Fluzone 2203-3585 (PF) 45 mcg (15 mcg x 3)/0.5 mL IM syringe TO BE ADMINIST ERED BY PHARMACI ST FOR IMMUNIZA TION active Not Available [...] mass index (BMI) Body weight Body temperature Respiratory rate Heart rate Oxygen saturation Systolic And Diastolic Provider Name and Address Organization Details Last Updated DateTime 5 165.1 cm 23.8 kg/m2 95245.7 1 g 98 [degF] 14 /min 88 /min 99 % 140/80 mm[Hg] Phoebe Burrell [place] [employer] [facility] 5 10:53:29 Date Recorded Body height Body mass index (BMI) Body weight Body temperature Heart rate Respiratory rate Oxygen saturation Systolic And Diastolic Provider Name and Address Organization Details Last Updated DateTime 5 165.1 cm 24 kg/m2 24198.3 g 97.8 [degF] 77 /min 15 /min 99 % 118/70 mm[Hg] Venus Steve [employer] [facility] 5 17:03:05 Date Recorded Body height Body mass index (BMI) Body weight Body temperature Heart rate Respiratory rate Oxygen saturation Provider Name and Address Organization Details Last Updated DateTime 5 165.1 cm 24 kg/m2 76311.3 g 98.6 [degF] 76 /min 14 /min 99 % Rachel Layton MA [employer] [facility] 5 10:27:10 Date Recorded Body height Body mass index (BMI) Body weight Body temperature Heart rate Oxygen saturation Pain severity - 0-10 verbal numeric rating [Score] - Reported Systolic And Diastolic Provider Name and Address Organization Details Last Updated DateTime 5 165.1 cm 24.3 kg/m2 66289.4 9 g 97.8 [degF] 52 /min 100 % 0 110/76 mm[Hg] Melissa Davies MA [facility] [employer] [facility] 5 10:24:37 Date Recorded Body height Body mass index (BMI) Body weight Body temperature Pain severity - 0-10 verbal numeric rating [Score] - Reported Heart rate Oxygen saturation Systolic And Diastolic Provider Name and Address Organization Details Last Updated DateTime 5 165.1 cm 23.4 kg/m2 07679.7 3 g 98.2 [degF] 3 60 /min 99 % 130/84 mm[Hg] Melissa Davies MA [facility] [employer] [facility] 5 17:06:30 Social History Question Answer Notes LastModified by Pax[employer] ion Details LastModified Time Tobacco Smoking Status Former Smoker quit age 22 Not Available [facility] 05/13/2022 06:07:45 Do You Have An Advance Directive? No [id number] [id number] Information not available 05/13/2022 What Is Your Level Of Caffeine Consumption? Moderate MIGRATION.55817 34084 Information not available 05/13/2022 In The 14 Days Before Symptom Onset, Have You Had Close Contact With A Laboratory-confi rmed COVID-19 While That Case Was Ill? No MIGRATION.12461 82776 Information not available 05/13/2022 In The 14 Days Before Symptom Onset, Have You Had Close Contact With A Person Who Is Under Investigation For COVID-19 While That Person Was Ill? No MIGRATION.94257 09603 Information not available 05/13/2022 What Type Of Diet Are You Following? REGULAR MIGRATION.24522 69534 Information not available 05/13/2022 What Is The Highest Grade Or Level Of School You Have Completed Or The Highest Degree You Have Received? [id number] MIGRATION.69917 34132 Information not available 05/13/2022 Have There Been Any Changes To Your Family Or Social Situation? No MIGRATION.23682 29272 Information not available 05/13/2022 What Is The Fluoride Status Of Your Home? Unknown MIGRATION.06425 07934 Information not available 05/13/2022 When Did You Quit Smoking? 16+yearssincelastc igarette MIGRATION.16384 66574 Information not available 05/13/2022 Are There Any Guns Present In Your Home? No MIGRATION.02901 00612 Information not available 05/13/2022 Do You Use Insect Repellent Routinely? Yes MIGRATION.19680 56765 Information not available 05/13/2022 Where Do You Live? [facility] MIGRATION.42500 13250 Information not available 05/13/2022 Do You Have A Medical Power Of Dyehouse Worker? No MIGRATION.97983 78457 Information not available 05/13/2022 What Was The Date Of Your Most Recent Tobacco Screening? 01/31/2025 [email or web address] Information not available 01/31/2025 Do You Have Any Pets? Yes MIGRATION.43745 01768 Information not available 05/13/2022 What Is Your Relationship Status? MIGRATION.42888 81112 Information not available 05/13/2022 Do You Use Your Seat Belt Or Car Seat Routinely? Yes MIGRATION.88414 82598 Information not available 05/13/2022 Do You Have Smoke And Carbon Monoxide Detectors In Your Home? Yes MIGRATION.57117 23419 Information not available 05/13/2022 Are You Passively Exposed To Smoke? No MIGRATION.95633 14406 Information not available 05/13/2022 Are There Any Smokers In Your House? No MIGRATION.55259 44238 Information not available 05/13/2022 What Types Of Sporting Activities Do You Participate In? None MIGRATION.71421 33174 Information not available 05/13/2022 Do You Use Sunscreen Routinely? Yes MIGRATION.61660 81384 Information not available 05/13/2022 Has Tobacco Cessation Counseling Been Provided? No MIGRATION.14413 24057 Information not available 05/13/2022 Have You Recently Traveled Abroad? No MIGRATION.75854 34501 Information not available 05/13/2022 Do You Have Any Dietary Restrictions? No MIGRATION.82671 37735 Information not available 05/13/2022 Sex: Female Functional Status Question Answer Note LastModified by Organizat ion Details LastModified Time Do you use any illicit or recreational drugs? No MIGRATION.043942 9945 Information not available 05/13/2022 Do you or have you ever used any other forms of tobacco or nicotine? No MIGRATION.709451 0256 Information not available 05/13/2022 What is your level of alcohol consumption? Occasional MIGRATION.593154 9262 Information not available 05/13/2022 Are you currently employed? 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 Moderate MIGRATION.972245 7193 Information not available 05/13/2022 Mental Status Question Answer Note LastModified by Organizat ion Details LastModified Time Do you feel stressed (tense, restless, nervous, or anxious, or unable to sleep at night)? [id number] MIGRATION.[id number] 6 Information not available 05/13/2022 Family History Relationship Description Onset Age of this Age Resolved Age Notes LastModified by Organization Details LastModified Time Father Heart disease MIGRATION.162 [id number] Not available 05/13/2022 06:09:34 Father Pure hypercholest erolemia MIGRATION.906 [id number] Not available 05/13/2022 06:09:34 Father Leiomyosarco ma MIGRATION.416 [id number] Not available 05/13/2022 06:09:34 Father Cardiac pacemaker in situ MIGRATION.494 [id number] Not available 05/13/2022 06:09:34 Mother Benign essential hypertension MIGRATION.744 [id number] Not available 05/13/2022 06:09:34 Mother Carcinoma of female breast MIGRATION.348 3248284 Not available 05/13/2022 06:09:34 Mother Cholecystect carolann Not available 05/13 12:20:16 Medical History Condition Response BLINDNESS N NERVE DISEASE Y RHEUMATIC FEVER N BLADDER PROBLEMS N KIDNEY STONES N MRSA N OTHER # 1 N [...] virus, quadrivalent, PF 6 completed Not Available [facility] 01/31/2025 16:49:52 COVID-19, mRNA, LNP-S, PF, 100 mcg/0.5mL dose or 50 mcg/0.25mL dose 1 completed Not Available [facility] 05/13/2022 06:20:17 COVID-19, mRNA, LNP-S, PF, 100 mcg/0.5mL dose or 50 mcg/0.25mL dose 1 completed Not Available [facility] 05/13/2022 06:20:17 COVID-19, mRNA, LNP-S, PF, 100 mcg/0.5mL dose or 50 mcg/0.25mL dose 1 completed Not Available [facility] 05/13/2022 06:20:17 Influenza, split virus, quadrivalent, preservative 0 completed Not Available [facility] 05/13/2022 06:20:17 influenza, unspecified formulation 7 completed Not Available [facility] 05/13/2022 06:20:17 Influenza, split virus, trivalent, PF 4 completed Not Available [facility] 05/13/2022 06:20:17 Past Encounters Encounter ID Performer Location Encounter Start Date Encounter Closed Date Diagnosis/Indication Diagnosis SNOMED-CT Code Diagnosis ICD10 Code Diagnosis IMO Codes Diagnosis Note [id number] Onofre suero MD [facility] [place] [address] [place] [address] [place] [address] 12/04/2020 00:00:00 12/04/2020 18:01:58 [id number] Onofre suero MD [facility] Internal [place] [address] [place] [address] [place] [address] 06/04/2021 00:00:00 06/04/2021 18:08:48 [id number] Onofre suero MD [facility] Internal Med [place] [address] [place] [address] y , [place] [address] 10/13/2021 00:00:00 10/13/2021 11:12:33 [id number] [facility] [place] [address] [facility] [address] [place] [address] 01/14/2022 00:00:00 01/14/2022 15:51:52 [id number] [address] [facility] [place] [address] [place] [address] [place] [address] 04/20/2022 00:00:00 04/20/2022 18:13:40 [id number] Stuart soto MD [facility] General Surgery [address] [address] 05/26/2022 11:50:06 05/26/2022 14:07:24 Cholelithiasis without obstruction 43968177 K80.20 [id number] Onofre suero MD [facility] Internal Med [place] [address] , [facility] [place] [address] 12/23/2022 17:24:40 12/23/2022 17:57:05 Screening - NAD 333487329 Z13.9 PAP: Dr. Logan, did see her, she is s/p hystrectom yMammogram : orderedUTD flu 12/09/2019 Do Tdap if not doneUTD on COVID 19 vaccineRTC in 6 monthsGo to the ER if any symptoms worsen!she did verbalize her understand ing of the above Paroxysmal dystonia 2303 65331 G24.8 Sees the neurologis t Dr Oakley n/Dr Sandhu On lamotrigin e 150mg daily Dr Sandhu 11/07/2022 Does well now, was in the ER for headaches on 04/11/2022 Asthma 047308655 J45.90 9 On ventolin PRNDoes well Hyperbilirubinemia 04789 006 E80.6 Repeat the labs, may need US abd US abd 05/08/2022 Pain of le ft shoulder joint 3309218150 1119510 M25.512 Get xraysGet on meloxicam as neededIf not better may need to see orthoDr Amita 01/14/2022 Vitamin D deficiency 347 84332 E55.9 Hyperlipidemia 59601680 E78.5 Repeat the labs Skin lesion 73516367 L98 .9 Small raised dark lesion on the back and a barely felt on the anterior mid chest [id number] Stuart stoo MD [facility] General Surgery [address] [address] 01/05/2023 10:55:57 01/05/2023 14:18:33 Dermoid cyst 770638228 K09.8 Back [id number] Onofre suero MD [facility] Internal Med [place] [address] [facility] y , [place] [address] 06/23/2023 16:42:43 06/23/2023 17:55:51 Screening - NAD 033469299 Z13.9 C-scope: Get this PAP: Dr. Logan, did see her, she is s/p hystrectom y Mammogram: ordered UTD flu 12/09/2019 Do Tdap if not doneUTD on COVID 19 vaccine RTC in 6 months as per her wishesGo to the ER if any symptoms worsen!she did verbalize her understand ing of the above Paroxysmal dystonia 2303 17753 G24.8 Sees the neurologis t Dr Oakley n/Dr Sandhu On lamotrigin e 150mg daily Dr Sandhu 11/07/2022 Does well now, was in the ER for headaches on 04/11/2022 Asthma 849341150 J45.90 9 On ventolin PRNRenewed airsupra 06/23/2023 Does well Hyperbilirubinemia 53565 006 E80.6 Repeat the labs, may need US abd US abd 05/08/2022 Did see G surgery and no surgery for GB, does well Pain of le ft shoulder joint 2301572797 1113182 M25.512 Get xraysGet on meloxicam as neededIf not better may need to see orthoDr Amita 01/14/2022 Vitamin D deficiency 347 44487 E55.9 Get on vit d weekly and repeat the vit d Hyperlipidemia 33408068 E78.5 Repeat the labsDeclin es any meds, wants to diet and exercise first Skin lesion 19867212 L98 .9 Small raised dark lesion on the back and a barely felt on the anterior mid chest Screening for malignant neoplasm of colon 174357524 Z12.11 Upper resp iratory infection 80921367 J06.9 Mild cough and nasal congestion , states that z-pack works wellRecent ly did have COVID 19 so declined any testing today, notify if not better 06/23/2023 Gynecologi c examination 28959542 Z01.115 [id number] Onofre suero MD [facility] Internal Med [place] [address] [facility] [place] [address] 09/22/2023 15:37:15 09/22/2023 16:59:32 Pain of left knee joint 8677313500 36116 M25.562 Get a referral to Dr Peguero, she prefers to be seen in [place], advised to ice, no lifting pulling or excessive walking, ER if worse,she and her mother are very appreciati ve to this plan of care [id number] Onofre suero MD [facility] Internal Med [place] [address] [facility] [place] [address] 01/10/2024 16:52:27 01/10/2024 17:28:20 Pain of left knee joint 2702513515 50884 M25.562 MRI 12/29/[address] Peguero Screening - NAD 95975504 3 Z13.9 C-scope: Get this PAP: Dr. Logan, did see her, she is s/p hystrectom y Mammogram: ordered Get yearly flu shot, declined 01/10/2024 Do Tdap if not doneUTD on COVID 19 vaccine RTC in 6 months as per her wishesGo to the ER if any symptoms worsen!she did verbalize her understand ing of the above Paroxysmal dystonia 2303 55384 G24.8 Sees the neurologis t Dr Oakley n/Dr Sandhu On lamotrigin e 150mg daily Dr Sandhu 11/07/2022 Does well now, was in the ER for headaches on 04/11/2022 Asthma 990239963 J45.90 9 Renewed airsupra 06/23/2023 Does well Hyperbilirubinemia 60499 006 E80.6 Repeat the labs, may need US abd US abd 05/08/2022 Did see G surgery and no surgery for GB, does well Pain of le ft shoulder joint 1725943598 3743136 M25.512 Get xraysGet on meloxicam as neededIf not better may need to see Efraín Levi 01/14/2022 Vitamin D deficiency 347 98803 E55.9 Repeat the vit d Hyperlipidemia 94414220 E78.5 Repeat the labsDeclin es any meds, wants to diet and exercise first Skin lesion 00050950 L98 .9 Small raised dark lesion on the back and a barely felt on the anterior mid chest Screening for malignant neoplasm of colon 938364250 Z12.11 Gynecologi c examination 61451709 Z01.510 [id number] Onofre suero MD 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 General Surgery [address] [facility] [place] [address] 07/04/2024 10:12:12 07/27/2024 09:33:42 Epidermoid cyst of skin 884638853 L72.0 Mid Chest [id number] Onofre suero MD [facility] Primary Care [facility] [address] [facility] [address] [place] [address] 07/10/2024 16:54:20 07/10/2024 17:34:23 Pain of left knee joint 7558608271 50819 M25.562 MRI 12/29/[address] Peguero Screening - NAD 88025253 3 Z13.9 C-scope: Get this PAP: Dr. Logan, did see her, she is s/p hystrectom y Mammogram: ordered Get yearly flu shot, declined 01/10/2024 Do Tdap if not doneUTD on COVID 19 vaccine RTC in 6 months as per her wishesGo to the ER if any symptoms worsen!she did verbalize her understand ing of the above Paroxysmal dystonia 2303 78141 G24.8 Sees the neurologis t Dr Oakley n/Dr Sandhu On lamotrigin e 150mg daily Dr Sandhu 11/07/2022 Does well now, was in the ER for headaches on 04/11/2022 Asthma 356509705 J45.90 9 Renewed airsupra 06/23/2023 Does well Hyperbilirubinemia 60808 006 E80.6 Repeat the labs, may need US abd US abd 05/08/2022 Did see G surgery and no surgery for GB, does well Pain of le ft shoulder joint 5220141201 1558350 M25.512 Get xraysGet on meloxicam as neededIf not better may need to see orthoDr Amita 01/14/2022 Vitamin D deficiency 347 69785 E55.9 Repeat the vit d Hyperlipidemia 36729843 E78.5 Repeat the labsDeclin es any meds, wants to diet and exercise first Skin lesion 43286893 L98 .9 Small raised dark lesion on the back and a barely felt on the anterior mid chest Dr Barber 07/04/2024 , next 07/13/2024 Screening for malignant neoplasm of colon 802465874 Z12.11 Gynecologi c examination 53227114 Z01.419 Steatotic liver disease 026695595 K76.0 S/p CT A/P on 06/29/2024 Get a referral to Dr Marina RUFF as she does not want to go to [facility] Leukopenia 25785749 D72. 819 Repeat the labs [id number] Stuart soto MD [facility] General Surgery [address] [facility] [place] [address] 07/13/2024 10:09:24 07/13/2024 10:52:10 Epidermoid cyst of skin 306314381 L72.0 [id number] Mid Chest [id number] Onofre suero MD [facility] Primary Care [facility] [address] [facility] [place] [address] 10/18/2024 10:15:25 10/18/2024 11:04:38 Pain of left knee joint 5885249376 15528 M25.562 MRI 12/29/[address] Peguero, was treated with steroid and it is better, as per her history 10/18/2024 Screening - NAD 06580524 3 Z13.9 C-scope: 03/17/2024 , Dr Orr, next in 10 years PAP: Dr. Logan, did see her, she is s/p hystrectom y Mammogram: ordered Get yearly flu shot, declined 01/10/2024 Do Tdap if not doneUTD on COVID 19 vaccine RTC in 6 months as per her wishesGo to the ER if any symptoms worsen!she did verbalize her understand ing of the above Paroxysmal dystonia 2303 42157 G24.8 Sees the neurologis t Dr Oakley n/Dr Sandhu Not on lamotrigin e 150mg daily Dr Sandhu , self stopped, no more apts as per her history 10/18/2024 but is going to do a televisit in 12/2024 Does well now Asthma 387107132 J45.90 9 Renewed airsupra 06/23/2023 Does well Hyperbilirubinemia 76402 006 E80.6 Repeat the labs, may need US abd US abd 05/08/2022 Did see G surgery and no surgery for GB, does well Pain of le ft shoulder joint 4320549659 9304275 M25.512 Get xraysGet on meloxicam as neededIf not better may need to see Efraín Levi 01/14/2022 Vitamin D deficiency 347 54286 E55.9 Repeat the vit d Hyperlipidemia 96672865 E78.5 OV 10/18/2024 :Declines any meds, wants to diet and exercise firstCBC/C MP done by her ELZBIETA, get rest of labs Skin lesion 27053670 L98 .9 Small raised dark lesion on the back and a barely felt on the anterior mid chest Dr Barber 07/04/2024 , next 07/13/2024 Gynecologi c examination 32361962 Z01.419 Steatotic liver disease 109567680 K76.0 S/p CT A/P on 06/29/2024 Get a referral to Dr Marina RUFF as she does not want to [facility] to [facility] Has seen Silvia Chavez [employer] on 09/21/2024 and next in one year as per her historyUS fibroscan 09/21/2024 09/21/2024 : On phoneCMP/C BC/Cerrulo plasmin/A1 AT Leukopenia 30950394 D72. 819 Repeat the labs Right lowe r quadrant pain 237753890 R10.31 887311 S/p CT A/P 06/29/2024 Screening mammography 24 176205 Z12.31 80429261 Pain of bi lateral hands 9660709116 0160635 M79.641 M79.642 [id number] Has noted hand pain and a LE rash, none today, will get labs [id number] Onofre suero MD [facility] Primary Care [facility] [address] [facility] [address] [place] [place] [address] 01/31/2025 16:47:58 01/31/2025 18:08:32 Anti-nuclear factor detected 045349967 R76.89 [id number] Get a referral to rheumataruna Bruno on MDP for L> R hand pain and swellingRT C as scheduled with labs Pain of le ft knee joint 1455149689 83047 M25.562 MRI 12/29/[address] Peguero, was treated with steroid and it is better, as per her history 10/18/2024 Screening - NAD 36983010 3 Z13.9 C-scope: 03/17/2024 , Dr Orr, [...] ing of the above Paroxysmal dystonia 2303 17025 G24.8 Sees the neurologis t Dr Oakley n/Dr Sandhu Not on lamotrigin e 150mg daily Dr Sandhu , self stopped, no more apts as per her history 10/18/2024 but is going to do a televisit in 12/2024 Does well now Asthma 544173345 J45.90 9 Renewed airsupra 06/23/2023 Does well Hyperbilirubinemia 30281 006 E80.6 Repeat the labs, may need US abd US abd 05/08/2022 Did see G surgery and no surgery for GB, does well Pain of le ft shoulder joint 3469799837 2899401 M25.512 Get xraysGet on meloxicam as neededIf not better may need to see Efraín Levi 01/14/2022 Vitamin D deficiency 347 76566 E55.9 Repeat the vit d Hyperlipidemia 29612218 E78.5 OV 10/18/2024 :Declines any meds, wants to diet and exercise firstCBC/C MP done by her ELZBIETA, get rest of labs Skin lesion 06338875 L98 .9 Small raised dark lesion on the back and a barely felt on the anterior mid chest Dr Barber 07/04/2024 , next 07/13/2024 Gynecologi c examination 11815626 Z01.419 Steatotic liver disease 018897747 K76.0 S/p CT A/P on 06/29/2024 Get a referral to Dr Marina RUFF as she does not want to [facility] Has seen Silvia Chavez [employer] on 09/21/2024 and next in one year as per her historyUS fibroscan 09/21/2024 09/21/2024 : On phoneCMP/C BC/Cerrulo plasmin/A1 AT Leukopenia 03461391 D72. 819 Repeat the labs Right lowe r quadrant pain 887509535 R10.31 876898 S/p CT A/P 06/29/2024 Screening mammography 24 072202 Z12.31 [id number] Health Concerns Section Related Observation LastModified by Organization Detai ls LastModified Time None Recorded Concern Status LastModified by Organization Details LastModified Time None Recorded Advance Directives Directive N: Payers Insurance Date Sequence Insurance Name Policy Number Policy Castillo Covered Member ID Castillo Member ID Guarantor Name 01/31/2025 1 [place] [id number] Phoebe Obregon [id number] Phoebe Obregon 07/03/2024 1 [place] [id number] Phoebe Obregon [id number] Phoebe Obregon 01/31/2025 1 [employer] Phoebe Obregon [id number] Phoebe Obregon 07/03/2024 2 ALLIED - [employer] (PPO) Phoebe Obregon [id number] Phoebe Obregon Notes Date Note Type Note Provider Name and Address Organization Details Recorded Time 07/04/2024 text/html Patient presents to clinci to discuss cyst of anterior chest. States it has been present for about a year, but over the past week it has gotten larger and more painful. No drainage. Some redness. No fevers. Stuart Elizalde MD [address] [facility], [facility] [address], [place], [address], [facility] [employer] 07/05/2024 14:00:25 07/10/2024 text/html 12/22/16Here to establish carePast Hx:Paroxysmal Dystonia, at age 16 years, has seen a neurologist and sees Dr. Sharma, at movement disorder clinic at [facility] family and surgical historyHere as she states [...] syncope, no SOB, MAJANO, no headaches, no PRODUCT TEST SPECIALIST sx OV 01/27/17:Here for the BP issues, [...] she was 16 years old, was in [facility] and had to walk for 2 days and she noted pain in the knee, went to an UC in [place], [place], did have an XrayHurts to walk [...] to GI, is here with her mother Onofre Rubio MD [address], [address], [place], [address], [employer] 07/10/2024 17:59:27 07/13/2024 text/html No complaints Stuart Elizalde MD [address], [address], [place], [address], [employer] 07/13/2024 15:23:34 10/18/2024 text/html 12/22/16Here to establish carePast Hx:Paroxysmal Dystonia, at age 16 years, has seen a neurologist and sees Dr. Sharma, at movement disorder clinic at [facility] family and surgical historyHere as she states [...] syncope, no SOB, MAJANO, no headaches, no PRODUCT TEST SPECIALIST sx OV 01/27/17:Here for the BP issues, [...] she was 16 years old, was in [facility] and had to walk for 2 days and she noted pain in the knee, went to an in [place], [place], did have an XrayHurts to walk [...] did some labs via the GI office Onofre Rubio MD [address] [facility], [address], [place], [address], [facility] [employer] 10/18/2024 14:31:39 01/31/2025 text/html 12/22/16Here to establish carePast Hx:Paroxysmal Dystonia, at age 16 years, has seen a neurologist and sees Dr. Sharma, at movement disorder clinic at [facility] family and surgical historyHere as she states [...] yesterday, no presyncope, on syncope, no SOB, MAAJNO, no headaches, no PRODUCT TEST SPECIALIST sx OV 01/27/17:Here for the BP issues, she has nt had any more palpitations or presyncope or syncope 01/29/18ACV:Here as she has had L arm numbness [...] she was 16 years old, was in [facility] and had to walk for 2 days and she noted pain in the knee, went to an UC in [place], [place], did have an XrayHurts to walk [...] it swells up Onofre Rubio MD [address], [address], [place], [address], [place] [employer] 01/31/2025 18:10:45 OBGyn Episode No OBEpisode recorded.
--- NOTE | 2025-02-11 11:49 | ECG_ITS ---
Test Date: 2025-02-11 11:55:03 Measurements Intervals [place] Rate: 101 P: 73 WY: 136 QRS: 79 QRSD: 108 T: 55 QT: 339 QTc: 440 Interpretive Statements SINUS TACHYCARDIA POSSIBLE LEFT ATRIAL ENLARGEMENT [-0.1mV P-WAVE IN V1/V2] INCOMPLETE RIGHT BUNDLE BRANCH BLOCK [90+ ms QRS DURATION, TERMINAL R IN V1/V2, 40+ ms S IN I/aVL/V4/V5/V6] MODERATE ST DEPRESSION [0.05+ mV ST DEPRESSION] No previous ECG available for comparison Electronically Signed On 02-11-2025 18:56:09 HISTORIC SITE ADMINISTRATOR by Eric Hoyt M.D.
[2025-02-11 11:58] LABS: Hematocrit 42.1 % (37.0-47.0); Hemoglobin 15.0 g/dL (12.0-15.0); Immature Granulocyte Percent A 0.3 % (0-0.5); Lymphocytes Absolute Auto 2.27 K/mm3 (0.9-3.2); Mean Corpuscular HGB Conc 35.6 g/dl (32-36); Mean Corpuscular Hemoglobin 29.9 pg (26-34); Mean Corpuscular Volume 83.9 fl (80-100); Nucleated Red Blood Cells Absolute Auto 0.000 K/mm3 (0.0-0.012); Nucleated Red Blood Cells Perc 0.0 % (0.0-0.2); Platelet Count Result 193 k/mm3 (150-375); Red Blood Count 5.02 M/mm3 (4.2-5.4); White Blood Count 6.1 K/mm3 (4.5-10.0)
--- OUTSIDE RECORDS SUMMARY | 2025-02-11 12:10 | XMS_ITS | Encounter Summary ---
Author Organization [facility] Address [address] [place] [address] Care Team Providers Care Blown Film Extrusion Operator Name Role Phone Onofre Rubio MD Primary Care Provider Kirby Sandhu MD Unavailable [phone] Fawad Swift MD Unavailable [phone] Encounter Details Date Type Department Care Team (Late st Contact Info) Description 02/07/2025 Orders Only [facility] [address] [place] [address] Gemma Khan MD [address] [address] Social History Tobacco Use Types [...] PANEL Lab Routine Fibromyalgia 02/07/2025 10:05 AM CABLE TOOL OPERATOR ANGIOTENSIN I ENZYME SERUM Lab Routine Fibromyalgia 02/07/2025 10:05 AM CABLE TOOL OPERATOR BETA 2 GLYCOPROTEIN I ANTIBODY,EA Lab Routine Fibromyalgia 02/07/2025 10:05 AM CABLE TOOL OPERATOR ENA2 (SSA & SSB) Lab Routine Fibromyalgia 02/07/2025 10:05 AM CABLE TOOL OPERATOR INFLAMATORY BOWEL DISEASE (QST) Lab Routine Fibromyalgia 02/07/2025 10:05 AM CABLE TOOL OPERATOR Scheduled Orders Name Type Priority Associated Diagnoses [...] * HEPATITIS A,B,& C (02/07/2025 10:05 AM CABLE TOOL OPERATOR) HEPATITIS B SURFACE AG NON-REACTIVE NON-REACT RICKI 02/07/2025 2:47 PM CABLE TOOL OPERATOR [facility] HEP B CORE TOTAL AB NON-REACTIVE NON-REACT IRCKI 02/07/2025 2:56 PM CABLE TOOL OPERATOR [facility] HEP B SURFACE AB REACTIVE 02/07/2025 4:00 PM CABLE TOOL OPERATOR [facility] HAV IGM NON-REACTIVE NON-REACT RICKI 02/07/2025 2:58 PM CABLE TOOL OPERATOR [facility] HEPATITIS C AB NON-REACTIVE NON-REACT RICKI 02/07/2025 2:55 PM CABLE TOOL OPERATOR [facility] BLOOD VENOUS BLOOD SPECIMEN / Unknown 02/07/2025 10:05 AM CABLE TOOL OPERATOR us Gemma Khan MD LABORATORY Final Result [facility] [address] [place] [address], * HEPATITIS B SURFACE ANTIBODY (02/07/2025 10:05 AM CABLE TOOL OPERATOR) Pathologist [facility] HEP B SURFACE AB REACTIVE 02/07/2025 4:00 PM CABLE TOOL OPERATOR [facility] BLOOD VENOUS BLOOD SPECIMEN / Unknown 02/07/2025 10:05 AM CABLE TOOL OPERATOR us Gemma Khan MD LABORATORY Final Result [facility] [address] [place] [address], * RHEUMATOID FACTOR, QUANT (02/07/2025 10:05 AM CABLE TOOL OPERATOR) Pathologist [facility] RHEUMATOID FACTOR <10 <15 IU/ML 02/07/2025 2:07 PM CABLE TOOL OPERATOR [facility] BLOOD VENOUS BLOOD SPECIMEN / Unknown 02/07/2025 10:05 AM CABLE TOOL OPERATOR us Gemma Khan MD LABORATORY Final Result [facility] [address] [place] [address], [place] [phone] * (ABNORMAL) COMPLEMENT C4 (02/07/2025 10:05 AM CABLE TOOL OPERATOR) Pathologist [facility] COMPLEMENT C4 11(L) 15 - 57 mg/dL 02/10/2025 6:51 PM CABLE TOOL OPERATOR [facility] Comment: Test Performed by Giuliano Corey, [facility], [address] [place] [address] Vinay Mahoney M.D., Ph.D., Director of Laboratories , [place] [id number] BLOOD VENOUS BLOOD SPECIMEN / Unknown 02/07/2025 10:05 AM CABLE TOOL OPERATOR us Gemma Khan MD LABORATORY Final Result [facility] [address] [place] [address], [place] [phone] * COMPLEMENT C3 (02/07/2025 10:05 AM CABLE TOOL OPERATOR) COMPLEMENT C3 95.3 90.0 - 180.0 MG/DL 02/07/2025 6:49 PM CABLE TOOL OPERATOR [facility] BLOOD VENOUS BLOOD SPECIMEN / Unknown 02/07/2025 10:05 AM CABLE TOOL OPERATOR us Gemma Khan MD LABORATORY Final Result Performing Organization Address City/[facility]/ZIP Co de Phone Number [facility] [address] [place] [address], [place] [phone] * CARDIOLIPIN ANTIBODIES (IGG,IGA,IGM) (02/07/2025 10:05 AM CABLE TOOL OPERATOR) CARDIOLIPIN AB IGG <2.0 <20.0 GPL 2024 6:21 AM CABLE TOOL OPERATOR [facility]HT[facility] Comment: U/mL Value Interpretation ----- < 20.0 Antibody not detected > or = 20.0 Antibody detected CARDIOLIPIN AB IGM 2.3 <20.0 MPL 2024 6:21 AM CABLE TOOL OPERATOR [facility] MAD[facility] MEHTA Comment: U/mL Value Interpretation ----- [...] aging. For additional information, please refer to http://[facility] [employer]/faq/CIA046 (This link is being provided for informational/ educational purposes only.) Test Performed by [facility], [employer] [place], [address] [place] [address] Vinay Mahoney M.D., Ph.D., Director of Laboratories , CLIA [id number] CARDIOLIPIN AB IGA <2.0 <20.0 APL 2024 6:21 AM CABLE TOOL OPERATOR [facility] MEHTA Comment: U/mL Value Interpretation ----- < 20.0 Antibody not detected > or = 20.0 Antibody detected BLOOD VENOUS BLOOD SPECIMEN / Unknown 02/07/2025 10:05 AM CABLE TOOL OPERATOR Gemma Khan MD LABORATORY Final Result [facility] [address], * LUPUS ANTICOAGULANT EVAL W/RFX (02/07/2025 10:05 AM CABLE TOOL OPERATOR) LUPUS ANTICOAGULANT REPORT 02/10/2025 9:00 PM CABLE TOOL OPERATOR [facility] MISAEL [facility] Comment: A Lupus Anticoagulant is not detected. Reference Range: Not Detected For additional information, please refer to http://[employer]/faq/NHK64o3 (This link is being provided for informational/ educational purposes only.) This interpretation is based on the following test results. PTT (LUPUS ANTICOAGULANT) 30 <=40 sec 02/10/2025 9:00 PM CABLE TOOL OPERATOR [facility] KRAUS-CHANTIL LY Comment: Test Performed by [facility] [email or web address] [facility] [place], [address] [place], [place] Vinay Mahnoey M.D., Ph.D., Director of Laboratories , [facility] [id number] DRVVT SCREEN 33 <=45 sec 02/10/2025 9:00 PM CABLE TOOL OPERATOR [employer] YUSRATIL LY BLOOD VENOUS BLOOD SPECIMEN / Unknown 02/07/2025 10:05 AM CABLE TOOL OPERATOR Gemma Khan MD LABORATORY Final Result [facility] [address] [place], [place] , documented in this encounter Visit Diagnoses Diagnosis Fibromyalgia- Primary Mylagia and myositis, unspecified documented in this encounter Care Teams Blown Film Extrusion Operator Relationship Specialty Start Date End Date Onofre Rubio MD [address] [address] PCP - General INTERNAL MEDICINE 03/16/19 Kirby Sandhu MD [address] [address] NEUROLOGY 03/20/19 Fawad Swift MD [address] [facility] [address] [place] [address] Referring Physician ORTHOPAEDIC SURGERY 03/20/19 documented as of this encounter
--- OUTSIDE RECORDS SUMMARY | 2025-02-11 12:11 | XMS_ITS | Clinical Summary ---
Author Organization [facility] Address [address] [place] [address] Care Team Providers Care Department Supervisor Name Role Phone Onofre Rubio MD Primary Care Provider Kirby Sandhu MD Unavailable [phone] Fawad Swift MD Unavailable [phone] Allergies Active Allergy Reactions Criticality Noted Date [...] Department Care Team Description 02/07/2025 9:56 AM WASTE COLLECTION DRIVER - 02/07/2025 11:59 PM WASTE COLLECTION DRIVER Hospital Encounter [facility] [address] [place] [address] Luis F Osborne MD Discharge Disposition: Home or Self Care (Routine Discharge) 02/07/2025 9:55 AM WASTE COLLECTION DRIVER Hospital Encounter [facility] [address] [place] [address] Luis F Osborne MD Discharge Disposition: Home or Self Care (Routine Discharge) 02/07/2025 Orders Only [facility] [address] [place] [address] Gemma Khan MD 02/07/2025 Travel 01/25/2025 2:29 PM WASTE COLLECTION DRIVER - 01/25/2025 11:59 PM WASTE COLLECTION DRIVER Hospital Encounter [facility] [address] [place] [address] Isatu Chavez NP Discharge Disposition: Home or Self Care (Routine Discharge) 01/25/2025 Orders Only [facility] [address] [place] [address] Isatu Chavez NP 01/25/2025 Travel 01/23/2025 8:55 AM WASTE COLLECTION DRIVER - 01/23/2025 11:59 PM WASTE COLLECTION DRIVER Hospital Encounter [facility] [address] [place] [address] Isatu Chavez NP Discharge Disposition: Home or Self Care (Routine Discharge) 01/23/2025 Orders Only [facility] [address] [place] [address] Isatu Chavez NP 01/23/2025 Travel 12/26/2024 [facility] Sc[facility] 12/25/2024 11:20 AM CDT - 12/25/2024 11:59 PM CDT Hospital Encounter [facility] [address] [place] [address] Bozena Neal, PA Discharge Disposition: Home or Self Care (Routine Discharge) 12/25/2024 10:35 AM CDT Office Visit [facility] [address] [address] Bozena Neal, PA Rectal Problem (Stomach crampting 2 nights ago-noticed blood in underwear-than noticed diarrhea) 12/25/2024 Results Follow-Up [facility] [address] [address] Bozena Neal, PA CBC W/DIFF AUTOMATED, COMPREHENSIVE METABOLIC PANEL, CLOSTRIDIUM DIFFICILE, Additional followed-up results: 3 12/25/2024 Travel 11/14/2024 9:27 AM CDT - 11/14/2024 11:59 PM CDT Hospital Encounter [facility] [address] [place] [address] Martín Lundberg PA Discharge Disposition: Home or Self Care (Routine Discharge) 11/14/2024 9:00 AM CDT Office Visit [facility] [address] [address] Martín Lundberg PA Fatigue (Headaches, body aches-x 1 day, nauseated-x 2 days-also random bruising to legs) 11/14/2024 Results Follow-Up [facility] [address] [address] Martín Lundberg PA COMPREHENSIVE METABOLIC PANEL, CBC W/DIFF AUTOMATED 11/14/2024 Travel from Last 3 Months Immunizations Immunization Administration Dates Next Due Influenza (Generic) 12/14/2016, 7,01/16/2014,2013 Influenza Adult (Generic) 12/20/2019,09/2019,12/09/2019,2019,12/15/2016,12/15/2016,12/18/2015,1 ,01/16/2014 [facility] COVID-19 (12+) MRNA, LNP-S, PF, 100 MCG/ 0.5 ML DOSE 02/18/2021,06/10/2020,06/10/2020,2020,05/10/2020 [facility] COVID-19 (CONCESSIONS MANAGER LEA SURESH), MRNA, LNP-S, PF, 50 [...] of 2 - PCV) 1997 PHQ-2 (Physician [place]) 03/15/2024 08/13/2023 COVID-19 Vaccine ( season) 2024 [...] this topic Medical Devices Implanted Type Area E Merchant Device Identifier Shelf Expiration Date Model / Serial / Lot 2.7 Mm Variable Angle Lcp Lateral Distal Fibula Plate Implanted:Qty: 1 on 03/21/2019 by Fawad Swift MD at [facility] Plate Right: Ankle SYNTHES [id number] / / 2.7 Variable Angle Locking Screw 18mm Implanted:Qty: 1 on 03/21/2019 by Fawad Swift MD at [facility] Screw Right: Ankle SYNTHES [id number] / / 2.7 Variable Angle Locking Screw 16mm Implanted:Qty: 1 on 03/21/2019 by Fawad Swift MD at [facility] Screw Right: Ankle SYNTHES 02.211.016 / / 2.7 Variable Angle Locking Screw 14mm Implanted:Qty: 1 on 03/21/2019 by Fawad Swift MD at [facility] Screw Right: Ankle SYNTHES 02.211.014 / / 3.5mm Cortex Screw 18mm Implanted:Qty: 1 on 03/21/2019 by Fawad Swift MD at [facility] Screw Right: Ankle SYNTHES 204.818 / / 3.5mm Cortex Screw 16mm Implanted:Qty: 1 on 03/21/2019 by Fawad Swift MD at [facility] Screw Right: Ankle SYNTHES 204.816 / / 2.7mm Cortex,Self Tapping 18mm Implanted:Qty: 2 on 03/21/2019 by Fawad Swift MD at [facility] Screw Right: Ankle SYNTHES 202.818 / / 4.0 Cannulated Screw,Short Thread Implanted:Qty: 1 on 03/21/2019 by Fawad Swift MD at [facility] Screw Right: Ankle SYNTHES 207.646 / / Explanted Type Area E Merchant Device Identifier Shelf Expiration Date Model / Serial / Lot 2.7mm Cortex, Self Tapping 14mm Implanted:Qty: 2 Explanted:Qty: 2 on 03/21/2019 at [facility] Screw Right: Ankle SYNTHES .814 / / Procedures Procedure Name Priority Date/Time Associated Diagnosis Comments XR HAND RT 2V Routine 02/07/2025 10:31 AM WASTE COLLECTION DRIVER Fibromyalgia XR HAND LT 2V Routine 02/07/2025 10:31 AM WASTE COLLECTION DRIVER Fibromyalgia XR FOOT LT 2V Routine 02/07/2025 10:31 AM WASTE COLLECTION DRIVER Fibromyalgia XR FOOT RT 2V Routine 02/07/2025 10:31 AM WASTE COLLECTION DRIVER Fibromyalgia XR SI JOINTS Routine 02/07/2025 10:31 AM WASTE COLLECTION DRIVER Fibromyalgia XR LUMB SPINE 3V Routine 02/07/2025 10:3 1 AM WASTE COLLECTION DRIVER Fibromyalgia HEPATITIS A,B,& C Routine 02/07/2025 10: 05 AM WASTE COLLECTION DRIVER Fibromyalgia HEPATITIS B SURFACE ANTIBODY Routine 02/07/2025 10:05 AM WASTE COLLECTION DRIVER Fibromyalgia RHEUMATOID FACTOR, QUANT Routine 02/07/2025 10:05 AM WASTE COLLECTION DRIVER Fibromyalgia COMPLEMENT C4 Routine 02/07/2025 10:05 AM WASTE COLLECTION DRIVER Fibromyalgia COMPLEMENT C3 Routine 02/07/2025 10:05 AM WASTE COLLECTION DRIVER Fibromyalgia CARDIOLIPIN ANTIBODIES (IGG,IGA,IGM) Routine 02/07/2025 10:05 AM WASTE COLLECTION DRIVER Fibromyalgia LUPUS ANTICOAGULANT EVAL W/RFX Routine 02/07/2025 10:05 AM WASTE COLLECTION DRIVER Fibromyalgia COMPREHENSIVE METABOLIC PANEL Routine 01/25/2025 2:34 PM WASTE COLLECTION DRIVER Elevated bilirubin Hepatic steatosis HC CBC AUTO W/AUTO DIFF Routine 01/23/2025 9:14 AM WASTE COLLECTION DRIVER Elevated bilirubin Hepatic steatosis GI PANEL PCR [...] virus infection COLONOSCOPY Routine 03/17/2024 8:38 AM WASTE COLLECTION DRIVER MG SCREENING W JOCY HONORIO DIGI Routine 02/09/2023 3:38 PM WASTE COLLECTION DRIVER Encounter for screening mammogram for malignant neoplasm of breast from Last 3 Months or Most Recently Relevant to Health Maintenance Results * XR FOOT RT 2V (02/07/2025 10:31 AM WASTE COLLECTION DRIVER) Anatomical Region Laterality Modality Foot Radiographic Bertha ging 02/09/2025 7:59 AM WASTE COLLECTION DRIVER Impressions 02/09/2025 8:02 AM WASTE COLLECTION DRIVER IMPRESSION: No acute osseous abnormality. Referred By: Interpreted By: Mango Sandoval MD, 02/09/2025 7:59 AM Narrative 02/09/2025 8:02 AM WASTE COLLECTION DRIVER [address] [place] [address] IMAGING STUDIES: XR FOOT RT 2V DATE: 02/07/2025 10:08 AM CLINICAL HISTORY: fibromyalgia. COMPARISON: No Comparisons. FINDINGS: 2 view foot demonstrates no evidence of acute fracture, dislocation or osseous erosion. Articular margins are within normal limits.. No radiopaque foreign bodies or soft tissue abnormalities. Hardware noted within the medial and lateral malleolus. Procedure Note Mango Sandoval MD - 02/09/2025 [place] [id number] [place] [address] IMAGING STUDIES: XR FOOT RT 2V DATE: [...] XR FOOT LT 2V (02/07/2025 10:31 AM WASTE COLLECTION DRIVER) Anatomical Region Laterality Modality Foot Radiographic Bertha ging 02/09/2025 8:02 AM WASTE COLLECTION DRIVER Impressions 02/09/2025 8:03 AM WASTE COLLECTION DRIVER IMPRESSION: No acute osseous abnormality. Referred By: Interpreted By: Mango Sandoval MD, 02/09/2025 8:02 AM Narrative 02/09/2025 8:03 AM WASTE COLLECTION DRIVER [facility] [address] [place] [address] IMAGING STUDIES: XR FOOT LT 2V DATE: 02/07/2025 10:08 AM CLINICAL HISTORY: fibromyalgia. COMPARISON: No Comparisons. FINDINGS: 2 view foot demonstrates no evidence of acute fracture, dislocation or osseous erosion. Articular margins are within normal limits.. No radiopaque foreign bodies or soft tissue abnormalities. . Small Achilles tendon insertion spur. Procedure Note Mango Sandoval MD - 02/09/2025 [facility] [address] [place] [address] IMAGING STUDIES: XR FOOT LT 2V DATE: [...] Mango Sandoval MD, 02/09/2025 8:02 AM Gemma Khan MD GENERAL IMAGING Final Result * XR SI JOINTS (02/07/2025 10:31 AM WASTE COLLECTION DRIVER) Anatomical Region Laterality Modality Pelvis Radiographic Bertha ging 02/09/2025 8:04 AM WASTE COLLECTION DRIVER Impressions 02/09/2025 8:05 AM WASTE COLLECTION DRIVER IMPRESSION: Mild degenerative change in the sacroiliac joints. Referred By: Interpreted By: Mango Sandoval MD, 02/09/2025 8:04 AM Narrative 02/09/2025 8:05 AM WASTE COLLECTION DRIVER [facility] [address] [place] [address] IMAGING STUDIES: XR SI JOINTS DATE: 02/07/2025 10:08 AM CLINICAL HISTORY: fibromyalgia. COMPARISON: No Comparisons. FINDINGS: . Mild degenerative change in the sacroiliac joints. No sclerosis or gross ankylosis. Procedure Note Mango Sandoval MD - 02/09/2025 [facility] [address] [place] [address] IMAGING STUDIES: XR SI JOINTS DATE: 02/07/2025 10:08 AM CLINICAL HISTORY: fibromyalgia. COMPARISON: No Comparisons. FINDINGS: . Mild degenerative change in the sacroiliac joints. No sclerosis or gross ankylosis. IMPRESSION: Mild degenerative change in the sacroiliac joints. Referred By: Interpreted By: Mango Sandoval MD, 02/09/2025 8:04 AM Gemma Khan MD GENERAL IMAGING Final Result * XR LUMB SPINE 3V (02/07/2025 10:31 AM WASTE COLLECTION DRIVER) Anatomical Region Laterality Modality Spine Radiographic Bertha ging 02/09/2025 8:03 AM WASTE COLLECTION DRIVER Impressions 02/09/2025 8:04 AM WASTE COLLECTION DRIVER IMPRESSION: No acute abnormality. Referred By: Interpreted By: Mango Sandoval MD, 02/09/2025 8:03 AM Narrative 02/09/2025 8:04 AM WASTE COLLECTION DRIVER [facility] [address] [place] [address] IMAGING STUDIES: XR LUMB SPINE 3V DATE: 02/07/2025 10:08 AM COMPARISON: No comparisons. CLINICAL HISTORY: fibromyalgia. FINDINGS: No evidence of acute fracture or dislocation. Vertebral body heights and intervertebral disc spaces are well maintained. Minor endplate degenerative change. No spondylolisthesis. No paraspinal lesions. Procedure Note Mango Sandoval MD - 02/09/2025 [facility] [address] [place] [address] IMAGING STUDIES: XR LUMB SPINE 3V DATE: [...] XR HAND RT 2V (02/07/2025 10:31 AM WASTE COLLECTION DRIVER) Anatomical Region Laterality Modality Hand Radiographic Bertha ging 02/09/2025 7:58 AM WASTE COLLECTION DRIVER Impressions 02/09/2025 7:59 AM WASTE COLLECTION DRIVER IMPRESSION: No acute osseous abnormality. Referred By: Interpreted By: Mango Sandoval MD, 02/09/2025 7:58 AM Narrative 02/09/2025 7:59 AM WASTE COLLECTION DRIVER [facility] [address] [place] [address] IMAGING STUDIES: XR HAND RT 2V DATE: 02/07/2025 10:08 AM CLINICAL HISTORY: fibromyalgia. COMPARISON: No Comparisons. FINDINGS: No evidence of acute fracture or dislocation. Articular margins are within normal limits.. Mild degenerative type change in the interphalangeal joint of the thumb No radiopaque foreign bodies or abnormal soft tissue calcifications noted. Procedure Note Mango Sandoval MD - 02/09/2025 [facility] [address] [place] [address] IMAGING STUDIES: XR HAND RT 2V DATE: [...] XR HAND LT 2V (02/07/2025 10:31 AM WASTE COLLECTION DRIVER) Anatomical Region Laterality Modality Hand Radiographic Bertha ging 02/09/2025 7:56 AM WASTE COLLECTION DRIVER Impressions 02/09/2025 7:58 AM WASTE COLLECTION DRIVER IMPRESSION: 1. No acute osseous abnormality. 2. 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 Follow-up with dedicated views of the left wrist and possible MRI Referred By: Interpreted By: Mango Sandoval MD, 02/09/2025 7:56 AM Narrative 02/09/2025 7:58 AM WASTE COLLECTION DRIVER [facility] [address] [place] [address] IMAGING STUDIES: XR HAND LT 2V DATE: [...] Procedure Note Mango Sandoval MD - 02/09/2025 [facility] [address] [place] [address] IMAGING STUDIES: XR HAND LT 2V DATE: [...] * RHEUMATOID FACTOR, QUANT (02/07/2025 10:05 AM WASTE COLLECTION DRIVER) RHEUMATOID FACTOR <10 <15 IU/ML 02/07/2025 2:07 PM WASTE COLLECTION DRIVER [facility] BLOOD VENOUS BLOOD SPECIMEN / Unknown 02/07/2025 10:05 AM WASTE COLLECTION DRIVER us Gemma Khan MD LABORATORY Final Result Performing Organization Address City/[facility]/ZIP Co de Phone Number [facility] [address] [place] [address], * HEPATITIS B SURFACE ANTIBODY (02/07/2025 10:05 AM WASTE COLLECTION DRIVER) HEP B SURFACE AB REACTIVE 02/07/2025 4:00 PM WASTE COLLECTION DRIVER [facility] BLOOD VENOUS BLOOD SPECIMEN / Unknown 02/07/2025 10:05 AM WASTE COLLECTION DRIVER us Gemma Khan MD LABORATORY Final Result [facility] [address] [place] [address], [place] [phone] * (ABNORMAL) COMPLEMENT C4 (02/07/2025 10:05 AM WASTE COLLECTION DRIVER) Pathologist [facility] COMPLEMENT C4 11(L) 15 - 57 mg/dL 02/10/2025 6:51 PM WASTE COLLECTION DRIVER [email or web address] MISAEL BOWIE Comment: Test Performed by [facility], [facility], [address] [place] [address] Vinay Mahoney M.D., Ph.D., Director of Laboratories , [facility] [id number] BLOOD VENOUS BLOOD SPECIMEN / Unknown 02/07/2025 10:05 AM WASTE COLLECTION DRIVER us Gemma Khan MD LABORATORY Final Result [email or web address] [facility] [address] [place] [address] , [place] [phone] * COMPLEMENT C3 (02/07/2025 10:05 AM WASTE COLLECTION DRIVER) [facility] COMPLEMENT C3 95.3 90.0 - 180.0 MG/DL 02/07/2025 6:49 PM WASTE COLLECTION DRIVER [facility] BLOOD VENOUS BLOOD SPECIMEN / Unknown 02/07/2025 10:05 AM WASTE COLLECTION DRIVER us Gemma Khan MD LABORATORY Final Result [facility] [address] [place] [address], [place] [phone] [id number] * LUPUS ANTICOAGULANT EVAL W/RFX (02/07/2025 10:05 AM WASTE COLLECTION DRIVER) Pathologist [facility] LUPUS ANTICOAGULANT REPORT 02/10/2025 9:00 PM WASTE COLLECTION DRIVER [email or web address] MISAEL BOWIE Comment: A Lupus Anticoagulant is not detected. Reference Range: Not Detected For additional information, please refer to http://education.Chain/faq/FNA01k3 (This link is being provided for informational/ educational purposes only.) This interpretation is based on the following test results. PTT (LUPUS ANTICOAGULANT) 30 <=40 sec 02/10/2025 9:00 PM WASTE COLLECTION DRIVER [email or web address] KRAUSClevrU CorporationCAMERONAMRIT LY Comment: Test Performed by [employer] [place], [facility], [address] [place] [address] Vinay Mahoney M.D., Ph.D., Director of Laboratories , [facility] [id number] DRVVT SCREEN 33 <=45 sec 02/10/2025 9:00 PM WASTE COLLECTION DRIVER IndexTankOLSClevrU CorporationKATERINA BOWIE BLOOD VENOUS BLOOD SPECIMEN / Unknown 02/07/2025 10:05 AM WASTE COLLECTION DRIVER Gemma Khan MD LABORATORY Final Result [facility] [id number], * CARDIOLIPIN ANTIBODIES (IGG,IGA,IGM) (02/07/2025 10:05 AM WASTE COLLECTION DRIVER) CARDIOLIPIN AB IGG <2.0 <20.0 GPL 2024 6:21 AM WASTE COLLECTION DRIVER [email or web address] MADDI MEHTA Comment: U/mL Value Interpretation ----- < 20.0 Antibody not detected > or = 20.0 Antibody detected CARDIOLIPIN AB IGM 2.3 <20.0 MPL 2024 6:21 AM WASTE COLLECTION DRIVER [email or web address] MADDI MEHTA Comment: U/mL Value Interpretation ----- [...] aging. For additional information, please refer to http://education.Chain/faq/JYE698 (This link is being provided for informational/ educational purposes only.) Test Performed by [employer], [facility], [address] [place] [address] Vinay Mahoney M.D., Ph.D., Director of Laboratories , [facility] [id number] CARDIOLIPIN AB IGA <2.0 <20.0 APL 2024 6:21 AM WASTE COLLECTION DRIVER [email or web address] [facility] Comment: U/mL Value Interpretation ----- < 20.0 Antibody not detected > or = 20.0 Antibody detected BLOOD VENOUS BLOOD SPECIMEN / Unknown 02/07/2025 10:05 AM WASTE COLLECTION DRIVER Gemma Khan MD LABORATORY Final Result [facility] [phone], * HEPATITIS A,B,& C (02/07/2025 10:05 AM WASTE COLLECTION DRIVER) HEPATITIS B SURFACE AG NON-REACTIVE NON-REACT RICKI 02/07/2025 2:47 PM WASTE COLLECTION DRIVER [facility] HEP B CORE TOTAL AB NON-REACTIVE NON-REACT RICKI 02/07/2025 2:56 PM WASTE COLLECTION DRIVER [facility] HEP B SURFACE AB REACTIVE 02/07/2025 4:00 PM WASTE COLLECTION DRIVER [facility] HAV IGM NON-REACTIVE NON-REACT RICKI 02/07/2025 2:58 PM [facility] HEPATITIS C AB NON-REACTIVE NON-REACT RICKI 02/07/2025 2:55 PM [facility] BLOOD VENOUS BLOOD SPECIMEN / Unknown 02/07/2025 10:05 AM WASTE COLLECTION DRIVER Gemma Khan MD LABORATORY Final Result [facility] [address] [place] [address], * (ABNORMAL) COMPREHENSIVE METABOLIC PANEL (01/25/2025 2:34 PM WASTE COLLECTION DRIVER) GLUCOSE 90 70 - 99 MG/DL 01/25/2025 3:01 PM [facility] BUN 16 7 - 18 MG/DL 01/25/2025 3:01 PM [facility] CREATININE S/P/B 1.12(H) 0.55 - 1.02 MG/DL 01/25/2025 3:01 PM [facility] SODIUM S/P/B 137 136 - 145 MMOL/L 01/25/2025 3:01 PM [facility] POTASSIUM S/P/B 3.8 3.5 - 5.1 MMOL/L 01/25/2025 3:01 PM [facility] CHLORIDE S/P/B 101 100 - 108 MMOL/L 01/25/2025 3:01 PM [facility] CO2 30.1 21 - 32 MMOL/L 01/25/2025 3:01 PM [facility] CALCIUM S/P/B 8.9 8.5 - 10.1 MG/DL 01/25/2025 3:01 PM WASTE COLLECTION DRIVER [facility] BILIRUBIN TOTAL S/P/B 1.4(H) 0.2 - 1.2 MG/DL 01/25/2025 3:01 PM [facility] TOTAL PROTEIN S/P/B 7.3 6.4 - 8.2 G/DL 01/25/2025 3:01 PM [facility] ALBUMIN S/P/B 4.0 3.4 - 5.0 G/DL 01/25/2025 3:01 PM [facility] AST 18 15 - 37 U/L 01/25/2025 3:01 PM [facility] ALT 25 14 - 55 U/L 01/25/2025 3:01 PM [facility] ALKALINE PHOSPHATASE S/P/B 53 50 - 136 U/L 01/25/2025 3:01 PM [facility] ANION GAP 5.9 5 - 15 MMOL/L 01/25/2025 3:01 PM [facility] BUN CREATININE RATIO 14.3 6 - 26 01/25/2025 3:01 PM [facility] A/G RATIO 1.2 1.0 - 2.0 RATIO 01/25/2025 3:01 PM [facility] GFR ESTIMATE 61(L) >90 ML/MIN/1.7 3 M2 01/25/2025 3:01 PM [facility] Comment: NOTE: eGFR is not calculated for patients <18 years of age. This is an estimated GFR calculation using the new CKD EPI creatinine equation without race and so does not require a correction factor for race. This estimated GFR should not be used for calculating drug doses. BLOOD VENOUS BLOOD SPECIMEN / Unknown 01/25/2025 2:34 PM WASTE COLLECTION DRIVER Isatu Chavez NP LABORATORY Final Re sult [facility] [address] [facility] [facility] [id number], * (ABNORMAL) CBC W/DIFF (01/23/2025 9:14 AM WASTE COLLECTION DRIVER) [facility] Signature WBC 4.18(L) 4.4 - 11.0 x10'3/uL 01/23/2025 9:31 AM [facility] RBC 4.42(L) 4.50 - 5.10 x10'6/uL 01/23/2025 9:31 AM [facility] HGB 13.2 12.3 - 15.3 G/DL 01/23/2025 9:31 AM [facility] HCT 38.4 35.9 - 44.6 % 01/23/2025 9:31 AM [facility] MCV 86.9 80.0 - 96.0 FL 01/23/2025 9:31 AM [facility] MCH 29.9 25.3 - 30.9 PG 01/23/2025 9:31 AM [facility] MCHC 34.4(H) 31.0 - 34.1 G/DL 01/23/2025 9:31 AM [facility] RDW 12.0(L) 12.4 - 15.1 % 01/23/2025 9:31 AM [facility] PLT 176 151 - 353 x10'3/uL 01/23/2025 9:31 AM [facility] MPV 11.5 9.6 - 12.0 FL 01/23/2025 9:31 AM [facility] RBC MORPHOLOGY NORMAL 01/23/2025 9:31 AM [facility] PLT MORPH. NORMAL 01/23/2025 9:31 AM [facility] WBC MORPHOLOGY NORMAL 01/23/2025 9:31 AM [facility] LYMPHOCYTES % 39.7 15.8 - 45.0 % 01/23/2025 9:31 AM [facility] NEUTROPHILS % 52.0 42.1 - 71.9 % 01/23/2025 9:31 AM [facility] MONOCYTES % 6.9 5.7 - 12.5 % 01/23/2025 9:31 AM [facility] EOSINOPHILS 1.0 0.0 - 5.6 % 01/23/2025 9:31 AM [facility] BASOPHILS 0.2 0.0 - 1.3 % 01/23/2025 9:31 AM [facility] ABS. NEUTROPHILS 2.17 1.40 - 6.00 x10'3/uL 01/23/2025 9:31 AM [facility] IMMATURE GRANS % 0.2 0.0 - 0.5 % 01/23/2025 9:31 AM [facility] ABS. LYMPHOCYTES 1.66 0.80 - 4.70 x10'3/uL 01/23/2025 9:31 AM [facility] BLOOD VENOUS BLOOD SPECIMEN / Unknown 01/23/2025 9:14 AM WASTE COLLECTION DRIVER Isatu Chavez NP LABORATORY Final Re sult [facility] [address] [place] [address], * (ABNORMAL) GI PANEL PCR - STOOL (12/25/2024 1:22 PM CDT) CAMPYLOBACTER PCR (STOOL) NOT DETECTED NOT DETECTED 12/25/2024 9:24 PM CDT [facility] PLESIOMONAS SHIGELLOIDES PCR (STOOL) NOT DETECTED NOT DETECTED 12/25/2024 9:24 PM CDT [facility] SALMONELLA PCR (STOOL) NOT DETECTED NOT DETECTED 12/25/2024 9:24 PM CDT [facility] VIBRIO PCR (STOOL) NOT DETECTED NOT DETECTED 12/25/2024 9:24 PM CDT [facility] VIBRIO CHOLERAE PCR (STOOL) NOT DETECTED NOT DETECTED 12/25/2024 9:24 PM CDT [facility] YERSINIA ENTEROCOLITICA PCR (STOOL) NOT DETECTED NOT DETECTED 12/25/2024 9:24 PM CDT [facility] ENTEROAGGREGATIVE ECOLI PCR (STOOL) NOT DETECTED NOT DETECTED 12/25/2024 9:24 PM CDT [facility] ENTEROPATHOGENIC ECOLI PCR (STOOL) DETECTED(AA ) NOT DETECTED 12/25/2024 9:24 PM CDT [facility] ENTEROTOXIGENIC ECOLI PCR (STOOL) NOT DETECTED NOT DETECTED 12/25/2024 9:24 PM CDT [facility] SHIGA LIKE TOXIN ECOLI PCR (STOOL) NOT DETECTED NOT DETECTED 12/25/2024 9:24 PM CDT [facility] SHIG/ENTEROINVASIVE ECOLI PCR (STOOL) NOT DETECTED NOT DETECTED 12/25/2024 9:24 PM CDT [facility] CRYPTOSPORIDIUM PCR (STOOL) NOT DETECTED NOT DETECTED 12/25/2024 9:24 PM CDT [facility] CYCLOSPORA CAYETANENSIS PCR (STOOL) NOT DETECTED NOT DETECTED 12/25/2024 9:24 PM CDT [facility] ENTAMOEBA HISTOLYTICA PCR (STOOL) NOT DETECTED NOT DETECTED 12/25/2024 9:24 PM CDT [facility] GIARDIA LAMBLIA PCR (STOOL) NOT DETECTED NOT DETECTED 12/25/2024 9:24 PM CDT [facility] ADENOVIRUS F40/41 PCR (STOOL) NOT DETECTED NOT DETECTED 12/25/2024 9:24 PM CDT [facility] ASTROVIRUS PCR (STOOL) NOT DETECTED NOT DETECTED 12/25/2024 9:24 PM CDT [facility] NOROVIRUS GI/GII PCR (STOOL) NOT DETECTED NOT DETECTED 12/25/2024 9:24 PM CDT [facility] ROTAVIRUS A PCR (STOOL) NOT DETECTED NOT DETECTED 12/25/2024 9:24 PM CDT [facility] SAPOVIRUS PCR (STOOL) NOT DETECTED NOT DETECTED 12/25/2024 9:24 PM CDT [facility] STOOL SPECIMEN / Unknown 12/25/2024 1:22 PM CDT us Bozena BAILEY MICROBIOLOGY - GENERAL ORDER CAL Final Result [facility] [address] [place] [address], * CLOSTRIDIUM DIFFICILE (12/25/2024 1:22 PM CDT) GDH ANTIGEN NEGATIVE NEGATIVE 12/25/2024 2:25 PM CDT [facility] C DIFFICILE TOXIN A&B (STOOL) NEGATIVE NEGATIVE 12/25/2024 2:25 PM CDT [facility] COMMENT GDH NEGATIVE/TOXI N A & B NEGATIVE: NEGATIVE FOR TOXIGENIC C. DIFFICILE. GDH NEGATIVE/TOXI N A & B NEGATIVE: NEGATIVE FOR TOXIGENIC C. 12/25/2024 2:25 PM CDT [facility] STOOL SPECIMEN / Unknown 12/25/2024 1:22 PM CDT us Bozena BAILEY BODY FLUIDS AND STOOLS ORDER CAL Final Result [facility] [address] [place] [address], * O&P CONC&SMEAR TO REF LAB (12/25/2024 1:22 PM CDT) SPECIMEN SOURCE STOOL 1:40 PM CDT [facility] O & P EXAMINATION (STOOL) REPORT 01/01/2025 3:18 PM CDT [email or web address] MISAEL BOWIE Comment: Ova and Parasites, Concentrate [...] infection. For additional information, please refer to [email or web address].DoPay/faq/[email or web address] (This link is being provided for informational/ educational purposes only.) Test Performed by Mynor Corey, [facility], [address] [place] [address] Vinay Mahoney M.D., Ph.D., Director of Laboratories , [place] [id number] STOOL SPECIMEN / Unknown 12/25/2024 1:22 PM CDT Bozena BAILEY MICROBIOLOGY - GENERAL ORDER CAL Final Result [facility] [address] [place], [place] , [place] [phone] [facility] [address] [place] [address], [place] [phone] * LIPASE (12/25/2024 11:38 AM CDT) LIPASE 32 16 - 77 UNITS/L 12/25/2024 1:58 PM CDT [facility] 12/25/2024 11:3 8 AM CDT Bozena BAILEY LABORATORY Final Result [facility] [address] [place] [address], [place] [phone] * COMPREHENSIVE METABOLIC PANEL (12/25/2024 11:37 AM CDT) Only the most recent of2 resultswithin the time period is included. Pathologist [facility] GLUCOSE 90 70 - 99 MG/DL 12/25/2024 12:05 PM CDT [facility] BUN 10 7 - 18 MG/DL 12/25/2024 12:05 PM T [facility] CREATININE S/P/B 0.73 0.55 - 1.02 MG/DL 12/25/2024 12:05 PM T [facility] SODIUM S/P/B 141 136 - 145 MMOL/L 12/25/2024 12:05 PM T [facility] POTASSIUM S/P/B 4.1 3.5 - 5.1 MMOL/L 12/25/2024 12:05 PM T [facility] CHLORIDE S/P/B 105 100 - 108 MMOL/L 12/25/2024 12:05 PM CDT [facility] CO2 29.6 21 - 32 MMOL/L 12/25/2024 12:05 PM [facility] CALCIUM S/P/B 9.0 8.5 - 10.1 MG/DL 12/25/2024 12:05 PM [facility] BILIRUBIN TOTAL S/P/B 1.1 0.2 - 1.2 MG/DL 12/25/2024 12:05 PM [facility] TOTAL PROTEIN S/P/B 7.4 6.4 - 8.2 G/DL 12/25/2024 12:05 PM [facility] ALBUMIN S/P/B 4.0 3.4 - 5.0 G/DL 12/25/2024 12:05 PM [facility] AST 18 15 - 37 U/L 12/25/2024 12:05 PM [facility] ALT 21 14 - 55 U/L 12/25/2024 12:05 PM [facility] ALKALINE PHOSPHATASE S/P/B 57 50 - 136 U/L 12/25/2024 12:05 PM [facility] ANION GAP 6.4 5 - 15 MMOL/L 12/25/2024 12:05 PM [facility] BUN CREATININE RATIO 13.7 6 - 26 12/25/2024 12:05 PM [facility] A/G RATIO 1.2 1.0 - 2.0 RATIO 12/25/2024 12:05 PM [facility] GFR ESTIMATE >90 >90 ML/MIN/1.7 3 M2 12/25/2024 12:05 PM [facility] Comment: NOTE: eGFR is not calculated for patients <18 years of age. This is an estimated GFR calculation using the new CKD EPI creatinine equation without race and so does not require a correction factor for race. This estimated GFR should not be used for calculating drug doses. 12/25/2024 11:3 7 AM CDT us Bozena BAILEY LABORATORY Final Result [facility] [address] [place] [address], [place] [phone] * (ABNORMAL) CBC W/DIFF AUTOMATED (12/25/2024 11:37 AM CDT) Only the most recent of2 resultswithin the time period is included. WBC 4.39(L) 4.4 - 11.0 x10'3/uL 12/25/2024 11:46 AM CDT [facility] RBC 4.57 4.50 - 5.10 x10'6/uL 12/25/2024 11:46 AM CDT [facility] HGB 13.6 12.3 - 15.3 G/DL 12/25/2024 11:46 AM CDT [facility] HCT 39.9 35.9 - 44.6 % 12/25/2024 11:46 AM CDT [facility] MCV 87.3 80.0 - 96.0 FL 12/25/2024 11:46 AM CDT [facility] MCH 29.8 25.3 - 30.9 PG 12/25/2024 11:46 AM CDT [facility] MCHC 34.1 31.0 - 34.1 G/DL 12/25/2024 11:46 AM CDT [facility] RDW 12.8 12.4 - 15.1 % 12/25/2024 11:46 AM CDT [facility] PLT 182 151 - 353 x10'3/uL 12/25/2024 11:46 AM CDT [facility] MPV 11.5 9.6 - 12.0 FL 12/25/2024 11:46 AM CDT [facility] RBC MORPHOLOGY NORMAL 12/25/2024 11:46 AM CDT [facility] PLT MORPH. NORMAL 12/25/2024 11:46 AM CDT [facility] WBC MORPHOLOGY NORMAL 12/25/2024 11:46 AM CDT [facility] LYMPHOCYTES % 33.9 15.8 - 45.0 % 12/25/2024 11:46 AM CDT [facility] NEUTROPHILS % 54.9 42.1 - 71.9 % 12/25/2024 11:46 AM CDT [facility] MONOCYTES % 9.1 5.7 - 12.5 % 12/25/2024 11:46 AM CDT [facility] EOSINOPHILS 1.4 0.0 - 5.6 % 12/25/2024 11:46 AM CDT [facility] BASOPHILS 0.5 0.0 - 1.3 % 12/25/2024 11:46 AM CDT [facility] ABS. NEUTROPHILS 2.41 1.40 - 6.00 x10'3/uL 12/25/2024 11:46 AM CDT [facility] IMMATURE GRANS % 0.2 0.0 - 0.5 % 12/25/2024 11:46 AM CDT [facility] ABS. LYMPHOCYTES 1.49 0.80 - 4.70 x10'3/uL 12/25/2024 11:46 AM CDT [facility] 12/25/2024 11:3 7 AM CDT us Bozena BAILEY LABORATORY Final Result [facility] [address] [place] [address], [place] [phone] * CORONAVIRUS (COVID-19) INFLUENZA A & B ANTIGEN IA PANEL (11/14/2024) CORONAVIRUS ANTIGEN IA NEGATIVE NEGATIVE [id number], [place] INFLUENZA A NEGATIVE NEGATIVE [id number], [place] INFLUENZA B NEGATIVE NEGATIVE [id number], [place] Internal Control: VALID VALID [id number], [facility] / Unknown 11/14/2024 Martín BAILEY MICROBIOLOGY - GENERAL ORDERAB LES Final Result [id number], [facility] [address] [place] [address], * MG SCREENING W JOCY HONORIO DIGI (02/09/2023 3:38 PM WASTE COLLECTION DRIVER) Anatomical Region Laterality Modality Breast Bilateral Mammography 02/10/2023 11:2 5 AM WASTE COLLECTION DRIVER Narrative 02/10/2023 11:25 AM WASTE COLLECTION DRIVER Examination: Digital screening mammogram with CAD. Clinical [...] Most Recently Relevant to Health Maintenance Insurance [id number] [address] Care Teams Department Supervisor Relationship Specialty Start Date End Date Onofre Rubio MD [address] [place] [address] PCP - General INTERNAL MEDICINE 03/16/19 Kirby Sandhu MD [address] [place] [address] NEUROLOGY 03/20/19 Fawad Swift MD [address] [place] [address] Referring Physician ORTHOPAEDIC SURGERY 03/20/19
--- OUTSIDE RECORDS SUMMARY | 2025-02-11 12:11 | XMS_ITS | Encounter Summary ---
Author Organization [facility] Address [address] [place] [address] Care Team Providers Care Audit Clerk Name Role Phone Onofre Rubio MD Primary Care Provider Kirby Sandhu MD Unavailable [phone] Fawad Swift MD Unavailable [phone] Encounter Details Date Type Department Care Team (Late st Contact Info) Description 05/06/2017 Abstract [facility] CONVERSION [address] [place] [address] , Generic Conversion, Social History Tobacco Use [...] Rule Out 02/25/2023 02/25/2023 02/25/2023 11:00 AM WEBSPHERE ARCHITECT COVID-19 Confirmed 02/25/2023 02/25/2023 12:32 AM WEBSPHERE ARCHITECT COVID-19 Rule Out 04/24/2024 04/24/2024 04/24/2024 12:50 PM WEBSPHERE ARCHITECT Influenza - Seasonal 04/24/2024 04/24/2024 025 12:32 AM WEBSPHERE ARCHITECT Respiratory Rule Out 05/31/2024 05/31/2024 025 1:04 PM CDT Respiratory Rule Out 06/29/2024 06/29/2024 025 9:39 AM CDT Respiratory Rule Out 08/02/2024 08/02/2024 025 7:27 AM CDT Respiratory Rule Out 11/14/2024 11/14/2024 025 8:59 AM CDT documented as of this encounter Care Teams Audit Clerk Relationship Specialty Start Date End Date Onofre Rubio MD [address] [facility] [address] [place] [address] PCP - General INTERNAL MEDICINE 03/16/19 Kirby Sandhu MD [address] [facility] [address] [place] [address] NEUROLOGY 03/20/19 Fawad Swift MD [address] [facility] [address] [address] [place] [address] Referring Physician ORTHOPAEDIC SURGERY 03/20/19 documented as of this encounter
--- OUTSIDE RECORDS SUMMARY | 2025-02-11 12:11 | XMS_ITS | Encounter Summary ---
Author Organization [facility] Address [facility] [place] [address] Care Team Providers Care Central Office Trouble Shooter Name Role Phone Onofre Rubio MD Primary Care Provider Kirby Sandhu MD Unavailable [phone] Fawad Swift MD Unavailable [phone] Encounter Details Date Type Department Care Team (Late st Contact Info) Description 03/20/2019 Prep for Procedure [facility] [place] [address] Saloni Ba, PONY WORKER [address] [place] [address] Anesthesia Record Procedure Summary Procedure Name Responsible Anesthesiologist Anesthesia Start Time Anesthesia Stop Time OPEN REDUCTION INTERNAL FIXATION OF RIGHT BIMALLEOLAR FRACTURE (Right: Ankle) Shruthi Gonzales MD 03/21/19 0751 03/21/19 0919 Events Date Time Event Comment 03/21/2019 0657 AN CHIEF EXECUTIVE Prepped 0706 0706 AN Anesthesia Prepped 0751 An Start Data 0751 An Start Patient ID and consent checked and patient reassessed. 0753 Preoxygenation 0755 An Induction 0757 An LMA 0800 Anesthesia Ready 0811 An Tourn Inflated [id number] 0906 An Tourn Deflated 0908 LMA Removed [...] Date: 03/21/19; Removal Time: 0908; Removal Person: CHIEF EXECUTIVE; Removal Reason: End of Case 03/21/19 0757 [...] Rule Out 02/25/2023 02/25/2023 02/25/2023 11:00 AM POLISHING PAD MOUNTER COVID-19 Confirmed 02/25/2023 02/25/2023 12:32 AM POLISHING PAD MOUNTER COVID-19 Rule Out 04/24/2024 04/24/2024 04/24/2024 12:50 PM POLISHING PAD MOUNTER Influenza - Seasonal 04/24/2024 04/24/2024 025 12:32 AM POLISHING PAD MOUNTER Respiratory Rule Out 05/31/2024 05/31/2024 025 1:04 PM CDT Respiratory Rule Out 06/29/2024 06/29/2024 025 9:39 AM CDT Respiratory Rule Out 08/02/2024 08/02/2024 025 7:27 AM CDT Respiratory Rule Out 11/14/2024 11/14/2024 025 8:59 AM CDT documented as of this encounter Care Teams Central Office Trouble Shooter Relationship Specialty Start Date End Date Onofre Rubio MD [address] [address] PCP - General INTERNAL MEDICINE 03/16/19 Kirby Sandhu MD [address] [address] NEUROLOGY 03/20/19 Fawad Swift MD [address] [facility] [address] [place] [address] Referring Physician ORTHOPAEDIC SURGERY 03/20/19 documented as of this encounter
--- OUTSIDE RECORDS SUMMARY | 2025-02-11 12:11 | XMS_ITS | Clinical Summary ---
Author Organization [facility] Address [address] [place] [address] Care Team Providers Care Manufacturing Scheduler Name Role Phone Clara Rubio MD Primary [...] PM Natalia Claire MD Movement Neurology Fellow [facility] [place] Assessment & Plan (06/18/2021 6:38 PM CDT): [...] Type Department Care Team Description 01/29/2025 Telephone [facility] [address] [place] [address] [place] [id number] Isatu Chavez, GRISELDA 12/15/2024 Telephone [facility] [address] [place] [address] [place] [address] Devora Sarabia Labs due late December to late January from Last 3 Months Medical History Medical History Date Comments Paroxysmal dystonia 1999 Kidney stone Social History Tobacco Use Types Packs/Day Years Used Date Smoking Tobacco: Former Tobacco Cessation:Counseling Given: Not Answered Comments No Sex and Gender Information Value Date Recorded Sex Assigned at Not on file Legal Sex Female 1:32 AM DROP WIRE HANGER Gender Identity Not on file Sexual Orientation [...] CDT 09/21/2024 11:48 AM CDT Isatu Chavez SHEETING PULLER LAB MICROBIOLOGY - GENER AL ORDERABLES Final Result [facility] [place] [address] from Last 3 Months or Most Recently Relevant to Health Maintenance Insurance [facility] [employer] [id number] Care Teams Manufacturing Scheduler Relationship Specialty Start Date End Date Clara Rubio MD [address] [facility] [address] [place] [address] PCP - General Internal Medicine 05/25/18
[2025-02-11 12:12] LABS: Alanine Aminotransferase 27 U/L (6-35); Albumin Level 5.0 g/dL (3.5-5.1); Alkaline Phosphatase 50 U/L (38-126); Anion Gap 10 mmol/L (4-12); Aspartate Amino Transferase 31 U/L (14-36); Bilirubin,Total 2.1 mg/dL (0.2-1.3); Blood Urea Nitrogen 10 mg/dL (7-17); Calcium 9.6 mg/dL (8.4-10.2); Carbon Dioxide 21 mmol/L (22-30); Chloride 105 mmol/L (98-107); Estimated Glomerular Filt Rate > 60; Glucose 94 mg/dL (65-110); Potassium 3.8 mmol/L (3.4-5.0); Sodium 136 mmol/L (137-145); Total Protein 8.5 g/dL (6.3-8.2)
--- NOTE | 2025-02-11 12:24 | ED.GENADULT ---
HPI - General Adult General Chief complaint: Weakness Stated complaint: weakness and SOB Time Seen by Provider: 02/11/25 11:55 History of Present Illness HPI narrative: Patient is a 44-year-old female who presents ER with weakness and shortness of breath. She was at a local store when she began to feel this way. She is being worked up for intermittent dystonia by a neurologist and is also being referred to a neonatologist. She has recently been on steroids due to recent similar issues. No fevers or chills or sweats. No chest pain. She is flushed in her head and neck which is not typically happens. Denies urinary symptoms. She also gets intermittent dysphonia when this occurs and she is currently with spring. Denies any new stressors. Related Data Home Medications ?Medication ?Instructions ?Recorded ?Confirmed ?Last Taken ?Type lamotrigine 100 mg tablet 100 mg PO DAILY 01/23/21 01/31/24 01/28/21 History terbinafine HCl 250 mg tablet 250 mg PO DAILY 01/03/24 01/31/24 Unknown History Allergies Allergy/AdvReac Type Severity Reaction Status Date / Time meperidine AdvReac Intermediate N/V Verified 01/31/24 13:55 nitrofurantoin AdvReac Intermediate Joint Pain Verified 01/31/24 13:55 adhesive AdvReac Mild Rash Verified 01/31/24 13:55 cefixime AdvReac Mild HIVES/ITCHI Verified 01/31/24 13:55 NG Review of Systems Review of Systems: All systems reviewed & are unremarkable except as noted in HPI and below Constitutional: Constitutional: Reports no additional constitutional complaints ENT: Reports system reviewed and no additional complaints, except as documented Cardiovascular: Cardiovascular: Reports no additional cardiovascular complaints Respiratory: Respiratory: Reports no additional respiratory complaints Gastrointestinal: Gastrointestinal: Reports no additional gastrointestinal complaints Musculoskeletal: Musculoskeletal: Reports no additional musculoskeletal complaints PMFSH Past Medical History Medical History Arrhythmia Levi's palsy Kidney stones Surgical History Surgical History H/O arthroscopic knee surgery ACL repair History of endometrial ablation History of tubal ligation Family History Family History Grandparent Breast cancer Cerebrovascular accident Father Heart disease Hypertension Cancer Mother Hypertension Cerebrovascular accident Cancer Sibling No problems noted. Social History Social History Smoking packs per day: 1 Smoking cigarettes per day: 20.0 Years smoked: 3 Smoking pack-years: 3.00 Smoking status: Former smoker Second hand tobacco smoke exposure: No Alcohol intake: current Alcohol use details: 2/MONTH Substance use: never Substance use type: does not use Current Housing: Decline to Answer Concerned About Future Housing: Decline to Answer Difficulty Paying Gas/Electric Bills: Decline to Answer Difficulty Paying for Meds: Decline to Answer Currently Unemployed: Decline to Answer Education: Decline to Answer Difficulty w/ Childcare or Family Care: Decline to Answer Living arrangements: with family Occupation/Education: occupation Additional occupation/education comments: [employer] Gender identity (if verbalized by the patient): Female Spiritual care concerns: No Exam Narrative: GENERAL: Well-appearing, well-nourished, and in no acute distress. HEAD: Normocephalic, atraumatic. EYES: PERRL and EOMI. ENT: Mucous membranes moist. NECK: Supple. CHEST: Clear to auscultation. No respiratory distress. HEART: Regular rate and rhythm. Normal peripheral pulses. ABDOMEN: Soft, mild diffuse discomfort, nondistended. EXTREMITIES: Normal range of motion. No edema. SKIN: Warm, dry, no rash. Flushed in the chest and neck and face. NEURO: Alert and oriented x3. No upper or lower extremity drift. No facial droop. Clear speech. No aphasia. She is whispering. Course Course Emergency Course: Patient is no longer flushed and is feeling better. Heart rate improved. Lab work unremarkable. CTA also negative. Appropriate for discharge home. Follow-up with PCP. Vital Signs Vital signs: Vital Signs Temperature 98.6 F 02/11/25 13:20 Pulse Rate 99 02/11/25 13:20 Respiratory Rate 16 02/11/25 13:20 Blood Pressure 150/81 H 02/11/25 13:20 Pulse Oximetry 100 02/11/25 13:20 Oxygen Delivery Room Air 02/11/25 13:20 Temperature 98.6 F 02/11/25 13:20 Pulse Rate 99 02/11/25 13:20 Respiratory Rate 16 02/11/25 13:20 Blood Pressure 150/81 H 02/11/25 13:20 Pulse Oximetry 100 02/11/25 13:20 Oxygen Delivery Room Air 02/11/25 13:20 Medical Decision Making Differential Diagnosis Differential Diagnosis: Sepsis, anxiety, rheumatologic process, UTI, viral syndrome Vital Signs Vital Signs: Vital Signs Temperature 98.6 F 02/11/25 13:20 Pulse Rate 99 02/11/25 13:20 Respiratory Rate 16 02/11/25 13:20 Blood Pressure 150/81 H 02/11/25 13:20 Pulse Oximetry 100 02/11/25 13:20 Oxygen Delivery Room Air 02/11/25 13:20 Temperature 98.6 F 02/11/25 13:20 Pulse Rate 99 02/11/25 13:20 Respiratory Rate 16 02/11/25 13:20 Blood Pressure 150/81 H 02/11/25 13:20 Pulse Oximetry 100 02/11/25 13:20 Oxygen Delivery Room Air 02/11/25 13:20 Lab Data 02/11/25 11:53 02/11/25 11:53 Labs: Lab Results 02/11/25 02/11/25 02/11/25 Range/Units 11:53 12:25 13:04 WBC 6.1 (4.5-10.0) K/mm3 RBC 5.02 (4.2-5.4) M/mm3 Hgb 15.0 (12.0-15.0) g/dL Hct 42.1 (37.0-47.0) % MCV 83.9 (80-100) fl MCH 29.9 (26-34) pg MCHC 35.6 (32-36) g/dl RDW 12.5 (11.5-14.5) % Plt Count 193 (150-375) k/mm3 MPV 10.9 H (7.4-10.4) fl Immature Gran % (Auto) 0.3 (0-0.5) % Neut % (Auto) 51.9 (45.5-73.1) % Lymph % (Auto) 37.2 (18.3-44.2) % [place] % (Auto) 9.7 H (2.6-8.5) % Eos % (Auto) 0.7 (0-4.4) % Baso % (Auto) 0.2 (0.2-1.2) % Lymph # (Auto) 2.27 (0.9-3.2) K/mm3 [place] # (Auto) 0.6 (0.1-0.6) K/mm3 Eos # (Auto) 0.0 (0-0.3) K/mm3 Baso # (Auto) 0.0 (0.0-0.1) K/mm3 Abs Immat Gran (auto) 0.02 (0.00-0.031) K/mm3 Absolute Neuts (auto) 3.2 (1.3-6.7) K/mm3 Absolute Nucleated RBC 0.000 (0.0-0.012) K/mm3 Nucleated RBC % 0.0 (0.0-0.2) % PT 13.6 (11.1-14.7) Seconds INR 1.0 APTT 24.7 (22.3-36.8) Seconds Sodium 136 L (137-145) mmol/L Potassium 3.8 (3.4-5.0) mmol/L Chloride 105 (98-107) mmol/L Carbon Dioxide 21 L (22-30) mmol/L Anion Gap 10 (4-12) mmol/L BUN 10 (7-17) mg/dL Creatinine 0.81 (0.7-1.0) mg/dL Estim Creat Clear Calc Not Reportable Estimated GFR > 60 (59 - ) Glucose 94 (65-110) mg/dL Lactic Acid 1.6 (0.7-2.0) mmol/L Calcium 9.6 (8.4-10.2) mg/dL Total Bilirubin 2.1 H (0.2-1.3) mg/dL AST 31 (14-36) U/L ALT 27 (6-35) U/L Alkaline Phosphatase 50 (38-126) U/L Troponin I < 0.012 (0.000-0.034) ng/mL NT-Pro-B Natriuret Pep 157 H (19.9-100) pg/mL Total Protein 8.5 H (6.3-8.2) g/dL Albumin 5.0 (3.5-5.1) g/dL Urine Color Yellow (Yellow) Urine Appearance Clear (Clear) Urine pH 7.5 (5.0-9.0) Ur Specific [place] 1.015 (1.001-1.035) Urine Protein Negative (Negative) mg/dL Urine Glucose (UA) Negative (Negative) mg/dL Urine Ketones Negative (Negative) mg/dL Ur Blood (Man) Negative (Negative) Urine Nitrate Negative (Negative) Urine Bilirubin Negative (Negative) Urine Urobilinogen 0.2 (<2.0) mg/dL Leukocyte Esterase Rfl Negative (Negative) DARIELA/UL Influenza A (RT-PCR) Negative (Negative) Influenza B (RT-PCR) Negative (Negative) RSV (RT-PCR) Negative (Negative) SARS-CoV-2 RNA (RT-PCR) Negative (Negative) Imaging Data Radiologist's impression: ITS Impressions Chest CTA 02/11/25 12:56 IMPRESSION: 1. No PE or other acute cardiopulmonary findings. ECG Data EKG #1: ECG completion date: 02/11/25 ECG completion time: 11:55 EKG Interpretation: tachycardia (101), sinus rhythm, non-specific ST changes, RBBB (incomplete) and normal QT Discharge Plan Discharge Clinical Impression: Generalized weakness Patient Disposition: Home Condition: Stable Instructions: Weakness (ED) Additional Instructions: Return ER if you have fever 100.4? F, you can not keep down food or water, you lose consciousness, or you have additional concerns. Patient Language: Luxembourgish Prescriptions: No Action terbinafine HCl 250 mg tablet 250 mg PO DAILY prednisone 10 mg tablet 10 mg PO DAILY Qty: 40 0RF Rx Instructions: Take 1 tablet Twice a day for 3 days, then 1 tablet daily lamotrigine 100 mg tablet 100 mg PO DAILY Follow-up/Referrals: Ramiro,MD Onofre [Primary Care Provider, Unknown] - 1 Week
[2025-02-11 12:45] LABS: INR 1.0; Prothrombin Time 13.6 Seconds (11.1-14.7)
[2025-02-11 12:46] LABS: Partial Thromboplastin Time 24.7 Seconds (22.3-36.8)
[2025-02-11 13:00] LABS: NT Pro B Type Natriuretic Pept 157 pg/mL (19.9-100); Troponin I < 0.012 ng/mL (0.000-0.034)
[2025-02-11] MEDS: SODIUM CHLORIDE 0.9% IV 1,000 ML 999 ML IV CONT (13:05)
[2025-02-11 13:11] LABS: Influenza A QL RT-PCR Negative (Negative); Influenza B QL RT-PCR Negative (Negative); RSV RNA, RT-PCR Negative (Negative); SARS-CoV-2 RNA PCR Negative (Negative)
[2025-02-11 13:13] LABS: Add Urine Microscopic? NO; Appearance Urine Clear (Clear); Glucose Urine UA Negative (Negative); Leukocyte Esterase Ur Negative LEU/UL (Negative); Nitrate Urine Negative (Negative); Specific Grav Ur 1.015 (1.001-1.035)
[2025-02-11 13:20] VITALS: BP 150/81; PULSE 99; RESP 16; TEMP 37; O2SAT 100
[2025-02-11 15:31] VITALS: BP 125/80; PULSE 79; RESP 16; O2SAT 100
== END 2025-02-11 15:32 | disposition home or self-care (01) ==
PROVIDERS: Emergency Provider Emergency Medicine; PCP Internal Medicine
DX: R53.1 Weakness (principal); Z20.822 Contact with and (suspected) exposure to COVID-19; Z87.442 Personal history of urinary calculi; Z87.891 Personal history of nicotine dependence; R94.31 Abnormal electrocardiogram [ECG] [EKG]; R00.0 Tachycardia, unspecified; I45.10 Unspecified right bundle-branch block
CPT/HCPCS: 36415; 71275; 80053; 81003; 83605; 83880; 84484; 85025; 85610; 85730; 87637; 93005; 96360; 99284; J7030; Q9967